=== PATIENT | female | born 1955 | race Caucasian/White ===

== ENCOUNTER 2018-01-01 10:28 | Inpatient (IN) | payer MEDICARE, OTHER ==
[~2018-01-01] VITALS: Ht 162.6 cm; Wt 90.7 kg
[~2018-01-01 10:28] MED LIST: ASPI81CH PO; ATEN50 PO; ATOR80 PO; Aldactone25 MG PO; BUME1 PO; CLOP75 PO; DIPH50 PO; FENO145 PO; FENO48 PO; FURO40 PO; GABA300; GABA300 PO; GABA600 PO; HYDR1TAB94; INSDET100 SC; INSU100I6 SC; INSUASPI SC; INSULANPEN; INSULANPEN SC; ISOMON20 PO; ISOMON30 PO; LISI5 PO; LORA1 PO; METO2.5; METO2.5 PO; METO25ER PO; METO50ER PO; Micro-K10 MEQ PO; PRAV20; QUIN10 PO; SPIR25 PO; TRAM50 PO; VENL75ER PO; VICODIN HP 10-1 EACH PO
[2018-01-01 11:15] LABS: BASOPHILS ABSOLUTE AUTO 0.06 K/mm3 (0.00-0.23); BASOPHILS PERCENT AUTO 1 % (0-2); EOSINOPHILS ABSOLUTE AUTO 0.26 K/mm3 (0.00-0.68); EOSINOPHILS PERCENT AUTO 2 % (0-6); Hematocrit 47.3 % (33.0-51.0); Hemoglobin 15.6 g/dL (11.5-16.0); IMMATURE GRAN ABSOLUTE AUTO 0.07 K/mm3 (0.00-0.10); IMMATURE GRAN PERCENT AUTO 1 % (0-1); LYMPHOCYTES ABSOLUTE AUTO 3.06 K/mm3 (0.84-5.20); LYMPHOCYTES PERCENT AUTO 25 % (21-46); MONOCYTES ABSOLUTE AUTO 0.78 K/mm3 (0.16-1.47); MONOCYTES PERCENT AUTO 6 % (4-13); Mean Corpuscular HGB 26.7 pg (26.0-34.0); Mean Corpuscular Volume 81 fL (80-100); NEUTROPHILS ABSOLUTE AUTO 8.13 K/mm3 (1.96-9.15); NEUTROPHILS PERCENT AUTO 66 % (41-73); Platelet Count 338 K/mm3 (150-400); RDW Standard Deviation 43.8 fL (35.1-46.3); Red Blood Cell Count 5.84 M/mm3 (3.80-5.20); White Blood Cell Count 12.36 K/mm3 (4.00-11.30)
[2018-01-01 11:27] LABS: Albumin, Blood 3.4 g/dL (3.4-5.0); Albumin/Globulin Ratio 0.7 (0.8-1.8); Bilirubin, Total 0.5 mg/dL (0.1-1.0); Bun/Creatinine Ratio 26.9 (12.0-20.0); Creatinine, Blood 2.94 mg/dL (0.40-1.00); Potassium, Blood 3.5 mmol/L (3.5-5.5); Total Protein, Blood 8.4 g/dL (6.4-8.2)
[2018-01-01 11:29] LABS: International Normalized Ratio 1.07; Prothrombin Time Results 11.1 Sec (9.7-11.5)
[2018-01-01 11:42] LABS: Source, Urine Catheter
[2018-01-01 11:51] LABS: Appearance, Urine Cloudy (Clear)
[2018-01-01 11:57] LABS: Color, Urine Yellow (P-Yellow); Red Blood Cells, Urine TNTC /hpf (0-2); White Blood Cells, Urine TNTC /hpf (0-5)
[2018-01-01 11:58] LABS: Bacteria Few /hpf; Squamous Epithelial Cells Rare /hpf (Few); Yeast/Fungi Urine Many /hpf
[2018-01-01] MEDS ORDERED: CALCA400CH (13:26)
[2018-01-01] MEDS ORDERED: INSULANPEN (13:26)
[2018-01-01 17:57] LABS: Amylase, Blood 223 U/L (25-115)
[2018-01-02 04:31] LABS: BASOPHILS ABSOLUTE AUTO 0.05 K/mm3 (0.00-0.23); BASOPHILS PERCENT AUTO 1 % (0-2); EOSINOPHILS ABSOLUTE AUTO 0.27 K/mm3 (0.00-0.68); EOSINOPHILS PERCENT AUTO 3 % (0-6); Hematocrit 40.6 % (33.0-51.0); Hemoglobin 13.2 g/dL (11.5-16.0); IMMATURE GRAN ABSOLUTE AUTO 0.04 K/mm3 (0.00-0.10); IMMATURE GRAN PERCENT AUTO 0 % (0-1); LYMPHOCYTES ABSOLUTE AUTO 1.84 K/mm3 (0.84-5.20); LYMPHOCYTES PERCENT AUTO 19 % (21-46); MONOCYTES ABSOLUTE AUTO 0.59 K/mm3 (0.16-1.47); MONOCYTES PERCENT AUTO 6 % (4-13); Mean Corpuscular HGB 26.6 pg (26.0-34.0); Mean Corpuscular HGB Conc 32.5 g/dL (31.5-36.5); Mean Corpuscular Volume 82 fL (80-100); Mean Platelet Volume 11.3 fL (9.1-12.4); NEUTROPHILS ABSOLUTE AUTO 7.03 K/mm3 (1.96-9.15); NEUTROPHILS PERCENT AUTO 72 % (41-73); Platelet Count 238 K/mm3 (150-400); RDW Coefficient Variation 15.5 % (11.7-14.2); RDW Standard Deviation 45.9 fL (35.1-46.3); Red Blood Cell Count 4.97 M/mm3 (3.80-5.20); White Blood Cell Count 9.82 K/mm3 (4.00-11.30)
[2018-01-02 04:53] LABS: Amylase, Blood 170 U/L (25-115); Troponin I 0.143 ng/mL (0.000-0.040)
[2018-01-02 04:57] LABS: Albumin, Blood 2.5 g/dL (3.4-5.0); Anion Gap 11 mmol/L (6-16); Blood Urea Nitrogen 81 mg/dL (8-24); Bun/Creatinine Ratio 24.9 (12.0-20.0); CO2, Blood 31 mmol/L (21-32); Chloride, Blood 90 mmol/L (98-108); Creatinine, Blood 3.25 mg/dL (0.40-1.00); Glomerular Filtration Rate 15 (60-); Glucose, Blood 349 mg/dL (70-99); Phosphorus, Blood 4.5 mg/dL (2.5-4.9); Potassium, Blood 4.4 mmol/L (3.5-5.5); Sodium, Blood 132 mmol/L (136-145)
[2018-01-02 05:01] LABS: Calcium, Blood 9.8 mg/dL (8.5-10.1)
[2018-01-03 03:57] LABS: Hemoglobin 13.1 g/dL (11.5-16.0)
[2018-01-03 04:15] LABS: Albumin, Blood 2.6 g/dL (3.4-5.0); Anion Gap 9 mmol/L (6-16); Blood Urea Nitrogen 62 mg/dL (8-24); Bun/Creatinine Ratio 26.8 (12.0-20.0); CO2, Blood 31 mmol/L (21-32); Calcium, Blood 9.7 mg/dL (8.5-10.1); Chloride, Blood 97 mmol/L (98-108); Creatinine, Blood 2.31 mg/dL (0.40-1.00); Glomerular Filtration Rate 23 (60-); Glucose, Blood 255 mg/dL (70-99); Phosphorus, Blood 3.3 mg/dL (2.5-4.9); Potassium, Blood 3.4 mmol/L (3.5-5.5); Sodium, Blood 137 mmol/L (136-145)
[2018-01-03] MEDS ORDERED: Acidophilus La100 GM PO (10:07)
[2018-01-03] MEDS ORDERED: CEFP200 PO (10:08)
[2018-01-05 14:10] LABS: ALBUMIN 2.8 g/dL (2.9-4.4); ALPHA-1-GLOBULIN 0.2 g/dL (0.0-0.4); ALPHA-2-GLOBULIN 1.2 g/dL (0.4-1.0); BETA GLOBULIN 0.9 g/dL (0.7-1.3); GAMMA GLOBULIN 0.6 g/dL (0.4-1.8); GLOBULIN, TOTAL 2.9 g/dL (2.2-3.9); M-SPIKE Not Observed g/dL (Not Observed); PROTEIN, TOTAL, SERUM 5.7 g/dL (6.0-8.5)
== END 2018-01-03 11:00 | disposition home or self-care (01) | DRG 871 ==
LOC: ER 10:28 → PCU 13:16
PROVIDERS: Internal Medicine; Internal Medicine Nephrology
DX: A41.9 Sepsis, unspecified organism (principal); I50.43 Acute on chronic combined systolic (congestive) and diastolic (congestive) heart failure; N17.0 Acute kidney failure with tubular necrosis; I13.0 Hypertensive heart and chronic kidney disease with heart failure and stage 1 through stage 4 chronic kidney disease, or unspecified chronic kidney disease; N39.0 Urinary tract infection, site not specified; R65.20 Severe sepsis without septic shock; Z79.4 Long term (current) use of insulin; Z87.891 Personal history of nicotine dependence; N18.3 Chronic kidney disease, stage 3 (moderate); E11.40 Type 2 diabetes mellitus with diabetic neuropathy, unspecified; I25.10 Atherosclerotic heart disease of native coronary artery without angina pectoris; I25.5 Ischemic cardiomyopathy; D63.1 Anemia in chronic kidney disease; Z95.1 Presence of aortocoronary bypass graft; Z79.82 Long term (current) use of aspirin; E21.3 Hyperparathyroidism, unspecified; E86.9 Volume depletion, unspecified; E87.6 Hypokalemia
CPT/HCPCS: 36415; 71045; 74150; 76770; 80053; 80069; 81001; 82150; 82947; 83605; 83690; 83735; 84484; 85014; 85018; 85025; 85610; 87086; 93005; 93010; 96365; 96375; 99285; C1751; C9113; J0696; J0744; J1644; J1815; J2405; J7030; P9612

== ENCOUNTER 2018-01-29 11:26 | Inpatient (IN) | payer MEDICARE, OTHER ==
[~2018-01-29] VITALS: Ht 165.1 cm; Wt 115.0 kg
[~2018-01-29 11:26] MED LIST changes: +Acidophilus La100 GM PO; +CALCA400CH; +CEFP200 PO
[2018-01-29 12:30] LABS: Calcium, Ionized (POC) 1.05 mmol/L (1.10-1.46); Chloride (POC) 100 mmol/L (98-108); Creatinine (POC) 6.3 mg/dL (0.6-1.0); Glucose (ISTAT POC) 86 mg/dL (70-99); Hemoglobin (POC) 10.5 g/dL (12.0-16.0); Potassium (POC) 7.1 mmol/L (3.5-5.5); Sodium (POC) 130 mmol/L (135-148); Total CO2 (POC) 20 mmol/L (21-32)
[2018-01-29 14:20] LABS: Source, Urine Clean Catch
[2018-01-29 14:25] LABS: Calcium, Ionized (POC) 1.08 mmol/L (1.10-1.46); Chloride (POC) 100 mmol/L (98-108); Creatinine (POC) 6.4 mg/dL (0.6-1.0); Glucose (ISTAT POC) 94 mg/dL (70-99); Hemoglobin (POC) 10.5 g/dL (12.0-16.0); Potassium (POC) 5.8 mmol/L (3.5-5.5); Sodium (POC) 132 mmol/L (135-148); Total CO2 (POC) 21 mmol/L (21-32)
[2018-01-29 14:39] LABS: Appearance, Urine Turbid (Clear); Bilirubin, Urine Neg (Neg); Blood, Urine 5+ (Neg); Color, Urine Yellow (P-Yellow); Glucose Qualitative, Urine Neg (Neg); Ketones, Urine 1+ (Neg); Leukocyte Esterase, Urine 3+ (Neg); Nitrite, Urine Neg (Neg); Protein, Urine 3+ (Neg); Specific Gravity, Urine 1.025 (1.003-1.022); Urobilinogen, Urine NORM (Normal)
[2018-01-29 14:42] LABS: BASOPHILS ABSOLUTE AUTO 0.04 K/mm3 (0.00-0.23); BASOPHILS PERCENT AUTO 1 % (0-2); EOSINOPHILS ABSOLUTE AUTO 0.26 K/mm3 (0.00-0.68); EOSINOPHILS PERCENT AUTO 4 % (0-6); Hemoglobin 10.4 g/dL (11.5-16.0); IMMATURE GRAN ABSOLUTE AUTO 0.04 K/mm3 (0.00-0.10); IMMATURE GRAN PERCENT AUTO 1 % (0-1); LYMPHOCYTES ABSOLUTE AUTO 1.52 K/mm3 (0.84-5.20); LYMPHOCYTES PERCENT AUTO 25 % (21-46); MONOCYTES ABSOLUTE AUTO 0.37 K/mm3 (0.16-1.47); MONOCYTES PERCENT AUTO 6 % (4-13); Mean Corpuscular HGB 27.3 pg (26.0-34.0); Mean Corpuscular HGB Conc 31.5 g/dL (31.5-36.5); Mean Corpuscular Volume 87 fL (80-100); Mean Platelet Volume 10.2 fL (9.1-12.4); NEUTROPHILS ABSOLUTE AUTO 3.92 K/mm3 (1.96-9.15); NEUTROPHILS PERCENT AUTO 64 % (41-73); NRBC ABSOLUTE 0.07 K/mm3 (0.00-0.02); NRBC Auto 1.1 /100 WBC (0.0-0.2); Platelet Count 314 K/mm3 (150-400); RDW Coefficient Variation 17.3 % (11.7-14.2); Red Blood Cell Count 3.81 M/mm3 (3.80-5.20); White Blood Cell Count 6.15 K/mm3 (4.00-11.30)
[2018-01-29 14:46] LABS: Red Blood Cells, Urine TNTC /hpf (0-2); White Blood Cells, Urine TNTC /hpf (0-5)
[2018-01-29 14:47] LABS: Alanine Aminotransfer (ALT/SGP 37 U/L (12-78); Albumin, Blood 2.6 g/dL (3.4-5.0); Albumin/Globulin Ratio 0.6 (0.8-1.8); Alk Phos 173 U/L (50-136); Anion Gap 13 mmol/L (6-16); Aspartate Aminotrans (AST/SGOT 62 U/L (12-37); Bilirubin, Total 0.5 mg/dL (0.1-1.0); Blood Urea Nitrogen 100 mg/dL (8-24); Bun/Creatinine Ratio 16.8 (12.0-20.0); CO2, Blood 22 mmol/L (21-32); Calcium, Blood 9.2 mg/dL (8.5-10.1); Chloride, Blood 100 mmol/L (98-108); Creatinine, Blood 5.97 mg/dL (0.40-1.00); Globulin, Blood 4.4 g/dL (2.2-4.0); Glomerular Filtration Rate 8 (60-); Glucose, Blood 92 mg/dL (70-99); Magnesium, Blood 2.9 mg/dL (1.6-2.4); Potassium, Blood 5.7 mmol/L (3.5-5.5); Sodium, Blood 135 mmol/L (136-145); Troponin I <0.015 ng/mL (0.000-0.040)
[2018-01-29 14:48] LABS: Bacteria Many /hpf; Squamous Epithelial Cells Few /hpf (Few)
[2018-01-29 19:43] LABS: Source, Urine Catheter
[2018-01-29 19:48] LABS: Bilirubin, Urine Neg (Neg); Blood, Urine 5+ (Neg); Glucose Qualitative, Urine Neg (Neg); Ketones, Urine Neg (Neg); Leukocyte Esterase, Urine 3+ (Neg); Nitrite, Urine Neg (Neg); Protein, Urine 3+ (Neg); Urobilinogen, Urine NORM (Normal)
[2018-01-29 19:55] LABS: Appearance, Urine Hazy (Clear); Color, Urine Yellow (P-Yellow); White Blood Cells, Urine TNTC /hpf (0-5)
[2018-01-29 19:56] LABS: Bacteria Many /hpf
[2018-01-29 19:57] LABS: Squamous Epithelial Cells Not Seen /hpf (Few)
[2018-01-29 20:02] LABS: U Amphetamine Screen Not Detected; U Barbituate Screen Not Detected; U Benzodiazapine Screen Not Detected; U Buprenorphine Screen Not Detected; U Cannabinoids Screen Not Detected; U Cocaine Screen Not Detected; U Methadone Screen Not Detected; U Methamphetamine Screen Not Detected; U Opiates Screen DETECTED; U Oxycodone Screen Not Detected; U Phencyclidine Screen Not Detected; U Propoxyphene Screen Not Detected
[2018-01-29] MEDS ORDERED: FENT50TP (22:38)
[2018-01-30 08:11] LABS: BASOPHILS ABSOLUTE AUTO 0.04 K/mm3 (0.00-0.23); BASOPHILS PERCENT AUTO 1 % (0-2); EOSINOPHILS ABSOLUTE AUTO 0.21 K/mm3 (0.00-0.68); EOSINOPHILS PERCENT AUTO 4 % (0-6); Hematocrit 33.4 % (33.0-51.0); Hemoglobin 10.7 g/dL (11.5-16.0); IMMATURE GRAN ABSOLUTE AUTO 0.03 K/mm3 (0.00-0.10); IMMATURE GRAN PERCENT AUTO 1 % (0-1); LYMPHOCYTES ABSOLUTE AUTO 1.21 K/mm3 (0.84-5.20); LYMPHOCYTES PERCENT AUTO 23 % (21-46); MONOCYTES ABSOLUTE AUTO 0.32 K/mm3 (0.16-1.47); MONOCYTES PERCENT AUTO 6 % (4-13); Mean Corpuscular HGB 27.7 pg (26.0-34.0); Mean Corpuscular Volume 87 fL (80-100); Mean Platelet Volume 10.3 fL (9.1-12.4); NEUTROPHILS ABSOLUTE AUTO 3.51 K/mm3 (1.96-9.15); NEUTROPHILS PERCENT AUTO 66 % (41-73); NRBC ABSOLUTE 0.07 K/mm3 (0.00-0.02); NRBC Auto 1.3 /100 WBC (0.0-0.2); Platelet Count 285 K/mm3 (150-400); RDW Coefficient Variation 17.4 % (11.7-14.2); RDW Standard Deviation 52.8 fL (35.1-46.3); Red Blood Cell Count 3.86 M/mm3 (3.80-5.20); White Blood Cell Count 5.32 K/mm3 (4.00-11.30)
[2018-01-30 08:24] LABS: Magnesium, Blood 2.9 mg/dL (1.6-2.4)
[2018-01-30 09:08] LABS: Bun/Creatinine Ratio 17.5 (12.0-20.0); Calcium, Blood 9.1 mg/dL (8.5-10.1); Creatinine, Blood 5.94 mg/dL (0.40-1.00)
[2018-01-30 09:10] LABS: Potassium, Blood 6.2 mmol/L (3.5-5.5)
[2018-01-31 04:35] LABS: Hemoglobin 9.5 g/dL (11.5-16.0)
[2018-01-31 04:59] LABS: Magnesium, Blood 2.6 mg/dL (1.6-2.4)
[2018-01-31 05:00] LABS: Albumin, Blood 2.5 g/dL (3.4-5.0); Anion Gap 13 mmol/L (6-16); Blood Urea Nitrogen 99 mg/dL (8-24); Bun/Creatinine Ratio 20.7 (12.0-20.0); CO2, Blood 23 mmol/L (21-32); Calcium, Blood 8.5 mg/dL (8.5-10.1); Chloride, Blood 101 mmol/L (98-108); Creatinine, Blood 4.78 mg/dL (0.40-1.00); Glomerular Filtration Rate 10 (60-); Glucose, Blood 155 mg/dL (70-99); Potassium, Blood 4.5 mmol/L (3.5-5.5); Sodium, Blood 137 mmol/L (136-145)
[2018-02-01 05:27] LABS: BASOPHILS ABSOLUTE AUTO 0.02 K/mm3 (0.00-0.23); BASOPHILS PERCENT AUTO 0 % (0-2); EOSINOPHILS ABSOLUTE AUTO 0.16 K/mm3 (0.00-0.68); EOSINOPHILS PERCENT AUTO 3 % (0-6); Hematocrit 31.9 % (33.0-51.0); Hemoglobin 10.1 g/dL (11.5-16.0); IMMATURE GRAN ABSOLUTE AUTO 0.03 K/mm3 (0.00-0.10); IMMATURE GRAN PERCENT AUTO 1 % (0-1); LYMPHOCYTES ABSOLUTE AUTO 0.76 K/mm3 (0.84-5.20); LYMPHOCYTES PERCENT AUTO 13 % (21-46); MONOCYTES ABSOLUTE AUTO 0.39 K/mm3 (0.16-1.47); MONOCYTES PERCENT AUTO 7 % (4-13); Mean Corpuscular HGB 26.7 pg (26.0-34.0); Mean Corpuscular HGB Conc 31.7 g/dL (31.5-36.5); Mean Platelet Volume 10.2 fL (9.1-12.4); NEUTROPHILS ABSOLUTE AUTO 4.67 K/mm3 (1.96-9.15); NEUTROPHILS PERCENT AUTO 77 % (41-73); NRBC ABSOLUTE 0.04 K/mm3 (0.00-0.02); NRBC Auto 0.7 /100 WBC (0.0-0.2); Platelet Count 261 K/mm3 (150-400); RDW Coefficient Variation 17.5 % (11.7-14.2); RDW Standard Deviation 50.4 fL (35.1-46.3); Red Blood Cell Count 3.78 M/mm3 (3.80-5.20); White Blood Cell Count 6.03 K/mm3 (4.00-11.30)
[2018-02-01 05:28] LABS: Mean Corpuscular Volume 84 fL (80-100)
[2018-02-01 05:51] LABS: Albumin, Blood 2.5 g/dL (3.4-5.0); Anion Gap 13 mmol/L (6-16); Blood Urea Nitrogen 93 mg/dL (8-24); Bun/Creatinine Ratio 27.8 (12.0-20.0); CO2, Blood 26 mmol/L (21-32); Calcium, Blood 8.8 mg/dL (8.5-10.1); Chloride, Blood 100 mmol/L (98-108); Creatinine, Blood 3.34 mg/dL (0.40-1.00); Glomerular Filtration Rate 15 (60-); Glucose, Blood 316 mg/dL (70-99); Magnesium, Blood 2.3 mg/dL (1.6-2.4); Phosphorus, Blood 6.3 mg/dL (2.5-4.9); Sodium, Blood 139 mmol/L (136-145)
[2018-02-01] MEDS ORDERED: Tylenol325 MG PO (08:55)
[2018-02-01] MEDS ORDERED: Aluminum H320 MG/5 M PO (08:58)
[2018-02-01] MEDS ORDERED: CEPH500 PO (08:59)
[2018-02-01] MEDS ORDERED: METO2.5 PO (09:01)
[2018-02-01] MEDS ORDERED: FURO80 PO (09:03)
[2018-02-01] MEDS ORDERED: PANT40 PO (09:04)
[2018-02-01] MEDS ORDERED: ONDA4ODT PO (09:09)
== END 2018-02-01 11:51 | disposition home or self-care (01) | DRG 640 ==
LOC: ER 11:26 → PCU 15:55 → SURS 15:55 → PCU 17:50 → SURS 01-31 14:57
PROVIDERS: Emergency Medicine; Family Medicine; Internal Medicine Nephrology; Physician Assistant
DX: E87.5 Hyperkalemia (principal); G93.40 Encephalopathy, unspecified; I13.0 Hypertensive heart and chronic kidney disease with heart failure and stage 1 through stage 4 chronic kidney disease, or unspecified chronic kidney disease; I50.22 Chronic systolic (congestive) heart failure; N39.0 Urinary tract infection, site not specified; N18.4 Chronic kidney disease, stage 4 (severe); N28.9 Disorder of kidney and ureter, unspecified; E87.2 Acidosis; E87.1 Hypo-osmolality and hyponatremia; B95.2 Enterococcus as the cause of diseases classified elsewhere; E10.22 Type 1 diabetes mellitus with diabetic chronic kidney disease; E10.42 Type 1 diabetes mellitus with diabetic polyneuropathy; K80.20 Calculus of gallbladder without cholecystitis without obstruction; E66.01 Morbid (severe) obesity due to excess calories; R60.0 Localized edema; E87.70 Fluid overload, unspecified; R00.1 Bradycardia, unspecified; R07.9 Chest pain, unspecified; D63.1 Anemia in chronic kidney disease; I25.10 Atherosclerotic heart disease of native coronary artery without angina pectoris; E78.5 Hyperlipidemia, unspecified; I25.5 Ischemic cardiomyopathy; M25.512 Pain in left shoulder; D50.9 Iron deficiency anemia, unspecified; Z68.38 Body mass index [BMI] 38.0-38.9, adult; R53.1 Weakness; Z95.5 Presence of coronary angioplasty implant and graft; Z79.4 Long term (current) use of insulin; Z95.810 Presence of automatic (implantable) cardiac defibrillator; Z95.1 Presence of aortocoronary bypass graft; Z87.891 Personal history of nicotine dependence; Z79.82 Long term (current) use of aspirin; Z79.899 Other long term (current) drug therapy; Z88.8 Allergy status to other drugs, medicaments and biological substances
CPT/HCPCS: 36415; 71045; 76770; 80047; 80048; 80053; 80069; 81001; 82947; 83735; 83880; 84132; 84484; 85014; 85018; 85025; 87077; 87086; 87186; 93005; 93010; 94762; 96374; 96375; 97163; 97165; 97535; 99285-25; C9113; G8978; G8979; G8987; G8988; G8989; J0610; J0696; J0881; J1650; J1815; J1940

== ENCOUNTER 2019-03-31 16:04 | Inpatient (IN) | payer MEDICARE, OTHER ==
[~2019-03-31] VITALS: Ht 167.6 cm; Wt 105.8 kg
[~2019-03-31 16:04] MED LIST changes: +Aluminum H320 MG/5 M PO; +CEPH500 PO; +FENT50TP; +FURO80 PO; +ONDA4ODT PO; +PANT40 PO; +Tylenol325 MG PO
[2019-03-31 16:20] LABS: Calcium, Ionized (POC) 0.98 mmol/L (1.10-1.46); Chloride (POC) 93 mmol/L (98-108); Creatinine (POC) 6.3 mg/dL (0.6-1.0); Glucose (ISTAT POC) 250 mg/dL (70-99); Hemoglobin (POC) 10.5 g/dL (12.0-16.0); Potassium (POC) 6.5 mmol/L (3.5-5.5); Sodium (POC) 125 mmol/L (135-148); Total CO2 (POC) 19 mmol/L (21-32)
[2019-03-31 16:31] LABS: BASOPHILS ABSOLUTE AUTO 0.03 K/mm3 (0.00-0.23); BASOPHILS PERCENT AUTO 0 % (0-2); EOSINOPHILS ABSOLUTE AUTO 0.03 K/mm3 (0.00-0.68); EOSINOPHILS PERCENT AUTO 0 % (0-6); Hematocrit 32.3 % (33.0-51.0); Hemoglobin 10.2 g/dL (11.5-16.0); IMMATURE GRAN PERCENT AUTO 1 % (0-1); LYMPHOCYTES ABSOLUTE AUTO 0.97 K/mm3 (0.84-5.20); LYMPHOCYTES PERCENT AUTO 9 % (21-46); MONOCYTES ABSOLUTE AUTO 0.85 K/mm3 (0.16-1.47); MONOCYTES PERCENT AUTO 7 % (4-13); Mean Corpuscular HGB 29.7 pg (26.0-34.0); Mean Corpuscular HGB Conc 31.6 g/dL (31.5-36.5); Mean Corpuscular Volume 94 fL (80-100); Mean Platelet Volume 10.9 fL (9.1-12.4); NEUTROPHILS ABSOLUTE AUTO 9.46 K/mm3 (1.96-9.15); NEUTROPHILS PERCENT AUTO 83 % (41-73); Platelet Count 306 K/mm3 (150-400); RDW Coefficient Variation 16.1 % (11.7-14.2); RDW Standard Deviation 55.1 fL (35.1-46.3); Red Blood Cell Count 3.44 M/mm3 (3.80-5.20); White Blood Cell Count 11.44 K/mm3 (4.00-11.30)
[2019-03-31 16:41] LABS: Base Excess Venous -9.4 mmol/L; Bicarbonate Venous 16.8 mmol/L (24.0-30.0); PCO2 Venous 48.1 mmHg (38-42); PO2 Venous 52.8 mmHg (38-42)
[2019-03-31 16:44] LABS: International Normalized Ratio 1.29; Prothrombin Time Results 13.4 Sec (9.7-11.5)
[2019-03-31 16:56] LABS: Source, Urine Catheter
[2019-03-31 17:06] LABS: Bilirubin, Urine Neg (Neg); Blood, Urine 3+ (Neg); Glucose Qualitative, Urine 1+ (Neg); Ketones, Urine Neg (Neg); Leukocyte Esterase, Urine 1+ (Neg); Nitrite, Urine Neg (Neg); Protein, Urine 3+ (Neg); Urobilinogen, Urine NORM (Normal)
[2019-03-31 17:16] LABS: Appearance, Urine Hazy (Clear); Color, Urine Yellow (P-Yellow)
[2019-03-31 17:19] LABS: Amorphous Mod (0-Heavy); Bacteria Mod /hpf; Squamous Epithelial Cells Few /hpf (Few); White Blood Cells, Urine 0-2 /hpf (0-5)
[2019-03-31 17:28] LABS: U Amphetamine Screen Not Detected; U Barbituate Screen Not Detected; U Benzodiazapine Screen Not Detected; U Buprenorphine Screen Not Detected; U Cannabinoids Screen Not Detected; U Cocaine Screen Not Detected; U Methadone Screen Not Detected; U Methamphetamine Screen Not Detected; U Opiates Screen DETECTED; U Oxycodone Screen Not Detected; U Phencyclidine Screen Not Detected; U Propoxyphene Screen Not Detected
[2019-03-31 18:10] LABS: Albumin, Blood 2.3 g/dL (3.4-5.0); Albumin/Globulin Ratio 0.5 (0.8-1.8); Bun/Creatinine Ratio 26.8 (12.0-20.0); Calcium, Blood 8.9 mg/dL (8.5-10.1); Creatine Kinase MB 15.2 ng/mL (0.0-3.6); Creatinine, Blood 5.11 mg/dL (0.40-1.00); Globulin, Blood 4.5 g/dL (2.2-4.0); Magnesium, Blood 2.9 mg/dL (1.6-2.4); Potassium, Blood 5.3 mmol/L (3.5-5.5); Total Protein, Blood 6.8 g/dL (6.4-8.2)
[2019-03-31 18:23] LABS: Creatine Kinase MB Index 1.2 (0.0-4.0)
[2019-03-31 21:07] LABS: Bun/Creatinine Ratio 29.1 (12.0-20.0); Calcium, Blood 8.9 mg/dL (8.5-10.1); Creatinine, Blood 4.95 mg/dL (0.40-1.00); Potassium, Blood 5.3 mmol/L (3.5-5.5)
--- NOTE | 2019-03-31 23:40 | NUR ---
Admission/Turner of Care: Patient arrived to unit at 2210hr via stretcher accompanied by ED nurse. Patient alert and oriented to self, place. Confused to exact date and reason for admission. Denies pain except for itching and mild pain to lt foot, and states this has been a ongoing issue for her. Lt foot appears slightly swollen (1+ edema) and pink, capillary refill and temp wnl, pulses positive. VSS at this time, heart rhythm shows sinus bradycardia in the high 50's. Guzman cath patent and intact, draining dark yellow, clear urine. Peripheral IV's x2 patent and intact, NS started at 75ml/hr after arrival. Call light in reach, makes needs known. Appears calm and comfortable at this time. Will continue to monitor for pain, safety, comfort.
[2019-04-01 03:37] LABS: Hematocrit 32.3 % (33.0-51.0); Hemoglobin 10.4 g/dL (11.5-16.0); Mean Corpuscular HGB 29.3 pg (26.0-34.0); Mean Corpuscular HGB Conc 32.2 g/dL (31.5-36.5); Mean Platelet Volume 10.9 fL (9.1-12.4); Platelet Count 234 K/mm3 (150-400); RDW Coefficient Variation 15.9 % (11.7-14.2); RDW Standard Deviation 52.9 fL (35.1-46.3); Red Blood Cell Count 3.55 M/mm3 (3.80-5.20); White Blood Cell Count 9.62 K/mm3 (4.00-11.30)
[2019-04-01 03:39] LABS: Mean Corpuscular Volume 91 fL (80-100)
[2019-04-01 04:00] LABS: Albumin, Blood 2.5 g/dL (3.4-5.0); Albumin/Globulin Ratio 0.5 (0.8-1.8); Bilirubin, Total 0.8 mg/dL (0.1-1.0); Bun/Creatinine Ratio 29.5 (12.0-20.0); Calcium, Blood 8.9 mg/dL (8.5-10.1); Creatinine, Blood 4.95 mg/dL (0.40-1.00); Globulin, Blood 4.6 g/dL (2.2-4.0); Magnesium, Blood 2.9 mg/dL (1.6-2.4); Potassium, Blood 5.2 mmol/L (3.5-5.5); Total Protein, Blood 7.1 g/dL (6.4-8.2)
[2019-04-01 04:18] LABS: Phosphorus, Blood 9.3 mg/dL (2.5-4.9)
--- NOTE | 2019-04-01 06:49 | NUR ---
Shift Summary: Patient slept on/off throughout shift. Remains oriented to self and place, confused to time/date, reason for admission, also slow to respond to questions. Continues to deny pain, except for mild discomfort and itching to lt foot, not requiring pain intervention. BP labile, systolic 80's-110, MAP 55-70's, Dr. Correa made aware of BP, no new orders received r/t BP. Morning labs showed increase in AST, ALT, phosphorus- 9.8, and no change to BUN, Creatinine. Dr. Correa ordered Amphogel with meals, and repeat amonia, and Ck lab orders. Repeat lab results then called to Dr. Correa, no new orders received at that time. Guzman cath remains patent and intact, draining dark yellow, clear urine. Peripheral IV's x2 remain patent and intact. Report given to Ivis BOLAND.
--- NOTE | 2019-04-01 07:21 | NUR ---
ASSUMED CARE: PT RESTING QUIETLY, ROUSES EASILY. AWARE OF NAME AND DATE OF . SPEECH CLEAR BUT OCCASIONALY COMES OUT GARBLED UNTIL PT REATTEMPTS TO SPEAK AND CORRECTS HERSELF. SINUS AUBREY IN 50S AT THIS TIME. HYPOTENSIVE BUT APPROPRIATE. NO FURTHER NEEDS OR CONCERNS AT THIS TIME.
--- NOTE | 2019-04-01 11:16 | NUR ---
DR DANIEL AWARE THAT PT IS ALERT AND ORIENTED X3 WITH SOME CONFUSION NOTED WHEN ASKING HER TO PERFORM TASKS OR ANSWER QUESTIONS. MADE DR DANIEL AWARE OF ULTRASOUND RESULTS. DECLINED GI AT THIS TIME AND STATES SHE WILL LOOK INTO IT FURTHER
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
--- NOTE | 2019-04-01 12:36 | NUR ---
PT TRANSFERRED TO PCU 10. REPORT GIVEN TO KYA KATZ. PT'S AT BEDSIDE AND AWARE OF TRANSFER. TRANSFERRED VIA WHEEL CHAIR, TWO ASSIST BACK TO BED UPON ARRIVAL TO ROOM. DENIED FURTHER NEEDS OR CONCERNS.
--- NOTE | 2019-04-01 17:34 | NUR ---
PT LEG IS VERY TENDER, PINK AND SWOLLEN, TIGHT, SPOKE WITH DR. DANIEL, WILL OBTAIN A DOPPLER TO R/O DVT, EXPLAINED THIS TO PT AND SPOUCE. DR. LUIS IN TO SEE PT, NO FURTHER NEEDS AT THIS TIME, CALL LIGHT IN REACH.
[2019-04-02 04:02] LABS: Hematocrit 32.4 % (33.0-51.0); Hemoglobin 10.4 g/dL (11.5-16.0)
[2019-04-02 04:27] LABS: Albumin, Blood 2.7 g/dL (3.4-5.0); Anion Gap 16 mmol/L (6-16); CO2, Blood 23 mmol/L (21-32); Calcium, Blood 8.8 mg/dL (8.5-10.1); Chloride, Blood 97 mmol/L (98-108); Creatinine, Blood 4.93 mg/dL (0.40-1.00); Glomerular Filtration Rate 9 (60-); Glucose, Blood 129 mg/dL (70-99); Magnesium, Blood 2.7 mg/dL (1.6-2.4); Potassium, Blood 4.5 mmol/L (3.5-5.5); Sodium, Blood 136 mmol/L (136-145)
[2019-04-02 04:33] LABS: Blood Urea Nitrogen 148 mg/dL (8-24)
[2019-04-02 04:41] LABS: Phosphorus, Blood 8.9 mg/dL (2.5-4.9)
--- NOTE | 2019-04-02 06:16 | NUR ---
PATIENT ALERT AND ORIENTED THROUGHOUT SHIFT, BUT SLOW TO RESPOND. LEFT LEG SWOLLEN AND PAINFUL TO TOUCH FROM RECENT FALL AT HOME, FOR WHICH X-RAY SHOWS NO FX-AND VENOUS DOPPLER STUDY COMPLETE. PATIENT ADMITS SHE OBSSESSIVELY PICKS AT HER SKIN; OBSERVABLE ARE NUMEROUS SCABS AND SCARS SCATTERED ON ALL SURFACES OF BODY AND HEAD. PATIENT IS 2-PER FULL ASSIST, BUT REMAINED IN BED ALL SHIFT. INTAKE AND OUTPUT FOR THIS PATIENT WAS LOW, PATIENT ENCOURAGED TO INCREASE WATER INTAKE. BED LOCKED AND LOW, CALL LIGHT IN REACH.
--- NOTE | 2019-04-02 12:49 | NUR ---
REPORT OFF REPORT GIVEN TO ALEJANDRO DOTY RN. LALITHA TO ASSUME CARE OF PT AT THIS TIME.
--- NOTE | 2019-04-02 19:09 | NUR ---
PT. ARRIVED TO FLOOR AT 1715 FROM [facility]- VIA . PT. A&O. PT. REFUSED DINNER REPORTING NAUSEA FOR WHICH ZOFRAN WAS GIVEN. PT. BACK IN BED AT THIS TIME.
--- NOTE | 2019-04-03 02:57 | NUR ---
SHIFT SUMMARY PT IS ALERT, CONFUSED TO TIME AND DATE. PT CONTINUES TO HAVE INTERMITTENT NAUSEA, BUT NO VOMITTING. ZOFRAN GIVEN ORDERED, AND A COOL CLOTH APPLIED TO PT'S FOREHEAD. PT'S BULLOCK IS DRAINING WELL. NO COMPLAINTS OF PAIN AT THIS TIME. AROUND MIDNIGHT, PT DID WORRY HER BLOOD SUGAR DROPPED. IT WAS CHECKED AND WAS 120S. NO OTHER COMPLAINTS AT THIS TIME. WILL CONTINUE TO MONITOR.
[2019-04-03 04:39] LABS: Hematocrit 33.9 % (33.0-51.0); Hemoglobin 10.5 g/dL (11.5-16.0)
[2019-04-03 04:57] LABS: Magnesium, Blood 2.5 mg/dL (1.6-2.4)
[2019-04-03 05:15] LABS: Albumin, Blood 2.5 g/dL (3.4-5.0); Anion Gap 16 mmol/L (6-16); Blood Urea Nitrogen 145 mg/dL (8-24); Bun/Creatinine Ratio 33.6 (12.0-20.0); CO2, Blood 23 mmol/L (21-32); Calcium, Blood 8.3 mg/dL (8.5-10.1); Chloride, Blood 98 mmol/L (98-108); Creatinine, Blood 4.31 mg/dL (0.40-1.00); Glomerular Filtration Rate 11 (60-); Glucose, Blood 123 mg/dL (70-99); Phosphorus, Blood 7.4 mg/dL (2.5-4.9); Potassium, Blood 3.5 mmol/L (3.5-5.5); Sodium, Blood 137 mmol/L (136-145)
--- NOTE | 2019-04-03 19:41 | NUR ---
SHIFT SUMMARY: NO ACUTE CHANGES TO REPORT THIS SHIFT. PT A&O; OCC CONFUSION; CALM AND COOPERATIVE WITH CARE. NO C/O PAIN THIS SHIFT. TYPE 1 DIABETIC; NO COVERAGE REQUIRED THIS SHIFT. GENERALIZED WEAKNESS; UP c 1-ASSIST TO BSC/CHAIR. BULLOCK IN PLACE; PATENT AND DRAINING. IV ABX CONTINUING. REPORT GIVEN TO ONCOMING RN.
--- NOTE | 2019-04-04 00:03 | NUR ---
DR. LUIS AT BEDSIDE TO SEE PT. INFORMED HER THAT SHE WILL CONTINUE TO BE HERE PROABALY UNTIL THURSDAY, PT VERBALIZES UNDERSTANDING. SAFETY MEASURES IN PLACE. WILL CONTINUE TO MONITOR.
[2019-04-04 05:00] LABS: Hematocrit 31.8 % (33.0-51.0); Hemoglobin 10.3 g/dL (11.5-16.0)
[2019-04-04 05:43] LABS: Albumin, Blood 2.6 g/dL (3.4-5.0); Anion Gap 13 mmol/L (6-16); Blood Urea Nitrogen 143 mg/dL (8-24); Bun/Creatinine Ratio 40.7 (12.0-20.0); CO2, Blood 28 mmol/L (21-32); Calcium, Blood 8.3 mg/dL (8.5-10.1); Chloride, Blood 98 mmol/L (98-108); Creatinine, Blood 3.51 mg/dL (0.40-1.00); Glomerular Filtration Rate 14 (60-); Glucose, Blood 125 mg/dL (70-99); Magnesium, Blood 2.4 mg/dL (1.6-2.4); Phosphorus, Blood 5.1 mg/dL (2.5-4.9); Sodium, Blood 139 mmol/L (136-145)
--- NOTE | 2019-04-04 06:21 | NUR ---
SHIFT SUMMARY LYING IN SEMI FOWLERS WITH EYES OPEN WHILE WATCHING TV. HAS HAD A GOOD NIGHT. DENIES PAIN, DISCOMFORT, OR FURTHER NEEDS AT THIS TIME. AMBULATED TO BATHROOM FOR BM ATTEMPTS X3 THIS SHIFT WITHOUT RESULTS. SAFETY MEASURES IN PLACE. WILL GIVE HAND OFF TO ONCOMING SHIFT USING SBAR.
--- NOTE | 2019-04-04 16:04 | NUR ---
Spiritual Care intial note: Simon admits she has been non-compliant with some things. She is willing to do whatever she needs to do to get strong and healthy. She is being followed by Dr. Correa. "He's done a great job of saving my kidneys." If it comes to it, she is willing to start dialysis. Simon is Christian, but has not been active. She welcomed prayer and spiritual encouragement. I will remain available.
--- NOTE | 2019-04-04 18:31 | NUR ---
PATIENT IS A/OX4, UP WITH FWW AND 1 ASSIST TO RESTROOM. KIDNEY FUNCTION IMPROVING. K+ 3.0 THIS AM AND HAS BEEN REPLACED. VSS, ON RA. FALL PRECAUTIONS IN PLACE PER UNIT PROTOCOL. TOLERATING RENAL DIET. MULTIPLE SCABS COVERING BODY. ACHS BLOOD SUGARS, NO SS COVERAGE NEEDED THIS SHIFT.
[2019-04-05 04:55] LABS: Hematocrit 29.6 % (33.0-51.0); Hemoglobin 9.4 g/dL (11.5-16.0)
[2019-04-05 05:15] LABS: Albumin, Blood 2.5 g/dL (3.4-5.0); Anion Gap 11 mmol/L (6-16); Blood Urea Nitrogen 129 mg/dL (8-24); Bun/Creatinine Ratio 45.7 (12.0-20.0); CO2, Blood 30 mmol/L (21-32); Calcium, Blood 8.8 mg/dL (8.5-10.1); Chloride, Blood 103 mmol/L (98-108); Creatinine, Blood 2.82 mg/dL (0.40-1.00); Glomerular Filtration Rate 18 (60-); Glucose, Blood 83 mg/dL (70-99); Magnesium, Blood 2.4 mg/dL (1.6-2.4); Phosphorus, Blood 3.8 mg/dL (2.5-4.9); Potassium, Blood 3.1 mmol/L (3.5-5.5); Sodium, Blood 144 mmol/L (136-145)
--- NOTE | 2019-04-05 05:28 | NUR ---
PRODUCT MANUFACTURING PROFESSIONAL SUMMARY PT AAOX4 AND PLEASANT. PT REPORTS FEELING MUCH BETTER THAN WHEN SHE CAME IN BUT STILL "PRETTY CRUMMY OVERALL". GIVEN ZOFRAN X1 AT START OF SHIFT FOR NAUSEA. PT HAS BEEN ABLE TO REST MOST OF SHIFT. KIDNEY FUNCTION LABS CONTINUE TO IMPROVE THIS MORNING. VSS, WILL CONTINUE TO MONITOR.
--- NOTE | 2019-04-05 18:26 | NUR ---
SHIFT SUMMARY PT SAT IN CHAIR FOR MOST OF THE AFTERNOON. NO COMPLAINTS OF PAIN THIS SHIFT. PT DOES NOT HAVE MUCH OF AN APPETITE. EATS SMALL AMOUNTS OF MEALS. PT HAS HAD NO ACUTE CHANGES THIS SHIFT. CALL LIGHT IN REACH. WILL CONTINUE TO MONITOR AND REPORT TO ONCOMING RN.
--- NOTE | 2019-04-05 22:54 | NUR ---
PT HAD A SECOND BM THIS SHIFT. THE STOOL WAS FORMED INTO JANG PELLETS, ALTHOUGH SOME OF THE PELLETS HAD RED BLOOD INSIDE THEM. THE SURROUNDING WATER HAD A PINKISH TINGE TO IT ALSO. HOSPITALIST WAS MADE AWARE. BP WAS RECHECKED AND IS IN THE CHART. PT ASYMPTOMATIC. WILL CONTINUE TO MONITOR PT.
--- NOTE | 2019-04-06 04:00 | NUR ---
SHIFT SUMMARY PT ALERT, ORIENTED AND STANDBY ASSIST. NO COMPLAINTS OF PAIN WERE MADE, AND NO CLINICAL CHANGE OTHER THEN THE BLOODY STOOL THAT WAS MENTIONED IN THE NOTE PREVIOUS. PT HAS NOT HAD ANOTHER BM SINCE. NO CONFUSION NOTED IN PT. VSS, WILL CONTINUE TO MONITOR.
[2019-04-06 04:25] LABS: Hematocrit 31.5 % (33.0-51.0); Hemoglobin 10.1 g/dL (11.5-16.0)
[2019-04-06 04:49] LABS: Albumin, Blood 2.7 g/dL (3.4-5.0); Anion Gap 9 mmol/L (6-16); Blood Urea Nitrogen 108 mg/dL (8-24); Bun/Creatinine Ratio 47.6 (12.0-20.0); CO2, Blood 30 mmol/L (21-32); Chloride, Blood 100 mmol/L (98-108); Creatinine, Blood 2.27 mg/dL (0.40-1.00); Glomerular Filtration Rate 23 (60-); Glucose, Blood 200 mg/dL (70-99); Magnesium, Blood 2.1 mg/dL (1.6-2.4); Phosphorus, Blood 2.6 mg/dL (2.5-4.9); Potassium, Blood 4.1 mmol/L (3.5-5.5); Sodium, Blood 139 mmol/L (136-145)
[2019-04-06] MEDS ORDERED: SPIR25 PO (11:39)
--- NOTE | 2019-04-06 11:46 | NUR ---
Pt. is doing well getting readyn to go home , prayed and blessed pt,
--- NOTE | 2019-04-06 12:10 | NUR ---
PT. DISCHARGED HOME WITH SPOUSE. PLACED PRESSURE DSG ON IV SITE AFTER REMOVING IT R/T CONT. BLEEDING. INSTRUCTED PT. TO REMOVE THE PRESSURE DRSG UPON ARRIVAL HOME. IF BLEEDING DID NOT STOP TO HOLD PRESSURE UUNTIL IT DID. VERBALIZED UNDERSTANDING OF MEDS AND DISCHARGE INSTRUCTIONS.
== END 2019-04-06 12:18 | disposition home or self-care (01) | DRG 682 ==
LOC: ER 16:04 → ICUW 20:07 → MEDS 20:07 → ICUW 22:16 → PCU 04-01 12:25 → MEDS 04-02 17:11 → ENPENDDIS 04-06 10:35 → MEDS 04-06 12:18
PROVIDERS: Emergency Medicine; Internal Medicine Nephrology; ADMIT Internal Medicine
DX: N17.9 Acute kidney failure, unspecified (principal); G93.41 Metabolic encephalopathy; I13.2 Hypertensive heart and chronic kidney disease with heart failure and with stage 5 chronic kidney disease, or end stage renal disease; I50.42 Chronic combined systolic (congestive) and diastolic (congestive) heart failure; M62.82 Rhabdomyolysis; Z68.42 Body mass index [BMI] 45.0-49.9, adult; I95.9 Hypotension, unspecified; N18.5 Chronic kidney disease, stage 5; N25.81 Secondary hyperparathyroidism of renal origin; E87.5 Hyperkalemia; M76.62 Achilles tendinitis, left leg; E87.6 Hypokalemia; Z95.810 Presence of automatic (implantable) cardiac defibrillator; E78.5 Hyperlipidemia, unspecified; E66.01 Morbid (severe) obesity due to excess calories; E10.22 Type 1 diabetes mellitus with diabetic chronic kidney disease; R00.1 Bradycardia, unspecified; D63.1 Anemia in chronic kidney disease; J44.9 Chronic obstructive pulmonary disease, unspecified; E83.39 Other disorders of phosphorus metabolism; I25.5 Ischemic cardiomyopathy; E88.09 Other disorders of plasma-protein metabolism, not elsewhere classified; I25.2 Old myocardial infarction; Z87.891 Personal history of nicotine dependence
CPT/HCPCS: 36415; 51702; 70450; 71045; 73610; 76705; 76770; 80047; 80048; 80053; 80069; 81001; 82140; 82550; 82553; 82803; 82947; 83605; 83735; 83880; 84100; 84145; 85014; 85018; 85025; 85027; 85610; 86850; 86900; 86901; 87040; 87086; 93005; 93010; 93971; 96361; 96374; 96375; 97162; 97166; 97530; 97535; 99285-25; J0610; J0881; J1644; J1815; J1956; J2310; J2405; J7030; J7050; J7799; P9041

== ENCOUNTER → 2019-07-19 | Outpatient (CLI) | payer MEDICARE, OTHER ==
[~2019-07-19] MED LIST changes: +Isosorbide Mono30 MG PO; +NOVOLOG FL100 UNIT/1 SC; +OXYC5 PO; +POTA10T PO
[2019-07-19 16:42] LABS: Bilirubin, Urine Neg (Neg); Blood, Urine 2+ (Neg); Glucose Qualitative, Urine Neg (Neg); Ketones, Urine Neg (Neg); Leukocyte Esterase, Urine 3+ (Neg); Nitrite, Urine Neg (Neg); Protein, Urine 3+ (Neg); Specific Gravity, Urine 1.015 (1.003-1.022); Urobilinogen, Urine NORM (Normal)
[2019-07-19 16:59] LABS: Appearance, Urine Clear (Clear); Color, Urine Yellow (P-Yellow)
[2019-07-19 17:00] LABS: White Blood Cells, Urine 25-50 /hpf (0-5)
[2019-07-19 17:01] LABS: Bacteria Few /hpf; Squamous Epithelial Cells Mod /hpf (Few)
== END | disposition home or self-care (01) ==
LOC: LAB 09:08 → LAB SHORT 09:08
PROVIDERS: Internal Medicine Nephrology
DX: N39.0 Urinary tract infection, site not specified (principal)
CPT/HCPCS: 81001

== ENCOUNTER 2019-10-20 13:59 | Day surgery (SDC) | payer MEDICARE, OTHER ==
[~2019-10-20] VITALS: Ht 165.1 cm; Wt 99.5 kg
[~2019-10-20 13:59] MED LIST changes: +Aspirin EC81 MG PO; -METO50ER PO
[2019-10-20] MEDS ORDERED: METO5 PO (14:42)
[2019-10-20] MEDS ORDERED: Pacerone400 MG PO (14:43)
--- NOTE | 2019-10-20 16:58 | NUR ---
DISCHARGE PT REMAINED A&OX3 AND DENIED ANY PAIN DURING RECOVERY. IV DC'D WITH CANULA IN TACT. PT ABLE TO DRESS SELF INDEPENDATLY. L UPPER CHEST SITE-CDI-NO HEMATOMA NOTED-SITE STABLE DURING RECOVERY. DISCHARGE PAPERWORK GONE OVER WITH PT. PT VERBALLY STATED THE UNDERSTANDING OF THE DISCHARGE PAPERWORK AND DENIED ANY QUESTIONS AT THIS TIME. PT WHEELED OUT BY SANDI Eckert RN.
== END 2019-10-20 23:42 | disposition home or self-care (01) ==
LOC: MHTC 13:59
DX: E11.22 Type 2 diabetes mellitus with diabetic chronic kidney disease (principal); N18.6 End stage renal disease; I25.10 Atherosclerotic heart disease of native coronary artery without angina pectoris; I25.5 Ischemic cardiomyopathy; E78.5 Hyperlipidemia, unspecified; Z95.1 Presence of aortocoronary bypass graft; Z95.810 Presence of automatic (implantable) cardiac defibrillator; Z87.891 Personal history of nicotine dependence; Z88.5 Allergy status to narcotic agent; Z88.8 Allergy status to other drugs, medicaments and biological substances; Z91.040 Latex allergy status; Z91.048 Other nonmedicinal substance allergy status; Z79.4 Long term (current) use of insulin; Z79.01 Long term (current) use of anticoagulants; Z79.82 Long term (current) use of aspirin; Z79.899 Other long term (current) drug therapy
CPT/HCPCS: 36558; 76937; C1750; C1769; J1644; J2250; J3010; J7040

== ENCOUNTER 2019-10-24 13:24 | Inpatient (IN) | payer MEDICARE, OTHER ==
[~2019-10-24] VITALS: Ht 165.1 cm; Wt 103.0 kg
[~2019-10-24 13:24] MED LIST changes: +METO5 PO; +Pacerone400 MG PO
[2019-10-24 14:16] LABS: BASOPHILS ABSOLUTE AUTO 0.06 K/mm3 (0.00-0.23); BASOPHILS PERCENT AUTO 1 % (0-2); EOSINOPHILS ABSOLUTE AUTO 0.34 K/mm3 (0.00-0.68); EOSINOPHILS PERCENT AUTO 4 % (0-6); Hematocrit 32.2 % (33.0-51.0); IMMATURE GRAN ABSOLUTE AUTO 0.06 K/mm3 (0.00-0.10); IMMATURE GRAN PERCENT AUTO 1 % (0-1); LYMPHOCYTES ABSOLUTE AUTO 1.07 K/mm3 (0.84-5.20); LYMPHOCYTES PERCENT AUTO 13 % (21-46); MONOCYTES ABSOLUTE AUTO 0.62 K/mm3 (0.16-1.47); MONOCYTES PERCENT AUTO 8 % (4-13); Mean Corpuscular HGB 27.1 pg (26.0-34.0); Mean Corpuscular HGB Conc 31.1 g/dL (31.5-36.5); Mean Corpuscular Volume 87 fL (80-100); NEUTROPHILS ABSOLUTE AUTO 6.14 K/mm3 (1.96-9.15); NEUTROPHILS PERCENT AUTO 74 % (41-73); NRBC ABSOLUTE 0.02 K/mm3 (0.00-0.02); NRBC Auto 0.2 /100 WBC (0.0-0.2); Platelet Count 287 K/mm3 (150-400); RDW Coefficient Variation 15.7 % (11.7-14.2); RDW Standard Deviation 48.9 fL (35.1-46.3); Red Blood Cell Count 3.69 M/mm3 (3.80-5.20); White Blood Cell Count 8.29 K/mm3 (4.00-11.30)
[2019-10-24 14:34] LABS: Alanine Aminotransfer (ALT/SGP 9 U/L (12-78); Albumin, Blood 2.7 g/dL (3.4-5.0); Albumin/Globulin Ratio 0.5 (0.8-1.8); Alk Phos 170 U/L (50-136); Anion Gap 17 mmol/L (6-16); Aspartate Aminotrans (AST/SGOT 22 U/L (12-37); Bilirubin, Total 0.3 mg/dL (0.1-1.0); Blood Urea Nitrogen 142 mg/dL (8-24); Bun/Creatinine Ratio 29.2 (12.0-20.0); CO2, Blood 22 mmol/L (21-32); Calcium, Blood 9.3 mg/dL (8.5-10.1); Chloride, Blood 94 mmol/L (98-108); Creatinine, Blood 4.86 mg/dL (0.40-1.00); Globulin, Blood 5.1 g/dL (2.2-4.0); Glomerular Filtration Rate 10 (60-); Glucose, Blood 93 mg/dL (70-99); Magnesium, Blood 2.7 mg/dL (1.6-2.4); Potassium, Blood 3.9 mmol/L (3.5-5.5); Sodium, Blood 133 mmol/L (136-145); Total Protein, Blood 7.8 g/dL (6.4-8.2); Troponin I <0.015 ng/mL (0.000-0.040)
[2019-10-24 14:37] LABS: PCO2 Arterial 37.4 mmHg (35-45); PO2 Arterial 61.3 mmHg (80-100); pH Blood Arterial 7.38 (7.35-7.45)
[2019-10-24 14:37] LABS: International Normalized Ratio 1.18; Prothrombin Time Results 12.5 Sec (9.7-11.5)
[2019-10-24 15:02] LABS: Phosphorus, Blood 9.5 mg/dL (2.5-4.9)
[2019-10-24] MEDS ORDERED: Bumetanide2 MG PO (15:09)
[2019-10-24 15:12] LABS: Source, Urine Catheter
[2019-10-24] MEDS ORDERED: BENZ100A PO (15:12)
[2019-10-24] MEDS ORDERED: LEVFLO500 PO (15:13)
[2019-10-24 15:17] LABS: Bilirubin, Urine Neg (Neg); Blood, Urine 5+ (Neg); Glucose Qualitative, Urine Neg (Neg); Ketones, Urine Neg (Neg); Leukocyte Esterase, Urine 3+ (Neg); Nitrite, Urine Neg (Neg); Protein, Urine 3+ (Neg); Urobilinogen, Urine NORM (Normal)
[2019-10-24 15:22] LABS: Appearance, Urine Cloudy (Clear); Color, Urine Yellow (P-Yellow)
[2019-10-24 15:24] LABS: Bacteria Many /hpf; Mucus Light (0-Heavy); Squamous Epithelial Cells Many /hpf (Few); White Blood Cells, Urine 25-50 /hpf (0-5)
[2019-10-24] MEDS ORDERED: Imdur60 MG PO (15:32)
[2019-10-24 16:50] LABS: Free Thyroxine 1.17 ng/dL (0.70-1.60)
[2019-10-24 16:51] LABS: Triiodothyronine, Free 1.72 pg/mL (2.18-3.98)
[2019-10-24 17:29] LABS: Adenovirus Not Detected (NOT DETECT); Coronavirus 229E Not Detected (NOT DETECT); Coronavirus HKU1 Not Detected (NOT DETECT); Coronavirus NL63 Not Detected (NOT DETECT); Coronavirus OC43 Not Detected (NOT DETECT); Human Metapneumovirus Not Detected (NOT DETECT); Human Rhinovirus/Enterovirus Not Detected (NOT DETECT); Influenza A/2009-H1 Not Detected (NOT DETECT); Influenza A/H1 Not Detected (NOT DETECT); Influenza A/H3 Not Detected (NOT DETECT); Influenza B Not Detected (NOT DETECT); Parainfluenza Virus 1 Not Detected (NOT DETECT); Parainfluenza Virus 2 Not Detected (NOT DETECT)
[2019-10-24 17:30] LABS: Bordetella pertussis Not Detected (NOT DETECT); Chlamydophila pneumoniae Not Detected (NOT DETECT); Mycoplasma pneumoniae Not Detected (NOT DETECT); Parainfluenza Virus 3 Not Detected (NOT DETECT); Parainfluenza Virus 4 Not Detected (NOT DETECT); Respiratory Syncytial Virus Not Detected (NOT DETECT)
--- NOTE | 2019-10-24 19:10 | NUR ---
SHIFT SUMMARY PT ARRIVED TO PCU FROM ED VIA STRETCHER AT 1730. PT ADMITTED FOR CHEST PAIN THAT STARTED WHILE SHE WAS GETTING READY FOR DIALYSIS TODAY. PT CURRENTLY DENIES ANY C/O CHEST PAIN/PRESSURE OR SOB. PT WAS ALSO NOTED TO HAVE A HR IN THE 20'S PER EMS, BUT HR IN THE 40-50'S UPON ARRIVAL TO THE ER. PER REPORT FROM ER, PT WAS IN A NEW ONSET AFIB, BUT HAS BEEN SB 50'S ON THE MONITOR. PT DOES HAVE AN AICD, PACEMAKER ORDERED TO BE INTERROGATED. SPOKE W/ DR. PEREZ VIA TELEPHONE TO NOTIFY HIM OF CARDIOLOGY CONSULT. ALSO CLARIFIED ORDER TO PLACE PACER PADS ON PT PER ER DOCTOR. DR. PEREZ STATED TO PLACE PACER PADS ON PT & KEEP ZOLL MONITOR IN THE ROOM; PT IS VERY ALLERGIC TO ADHESIVE (SHE HAS MULTIPLE LESIONS ON HER CHEST THAT SHE REPORTS IS FROM ADHESIVE TAPE PLACED ON HER SKIN) SO PACER PADS/ZOLL MONITOR ARE RIGHT OUTSIDE PT DOOR. PT ON ISOLATION PRECAUTIONS FOR R/O COVID-19. PT IS CURRENTLY RESTING IN BED RECEIVING DIALYSIS TREATMENT. NO COMPLAINTS AT THIS TIME. REPORT GIVEN TO ONCOMING RN.
[2019-10-25 01:55] LABS: BASOPHILS ABSOLUTE AUTO 0.05 K/mm3 (0.00-0.23); BASOPHILS PERCENT AUTO 1 % (0-2); EOSINOPHILS ABSOLUTE AUTO 0.18 K/mm3 (0.00-0.68); EOSINOPHILS PERCENT AUTO 3 % (0-6); Hematocrit 31.5 % (33.0-51.0); Hemoglobin 9.8 g/dL (11.5-16.0); IMMATURE GRAN ABSOLUTE AUTO 0.04 K/mm3 (0.00-0.10); IMMATURE GRAN PERCENT AUTO 1 % (0-1); LYMPHOCYTES ABSOLUTE AUTO 0.92 K/mm3 (0.84-5.20); LYMPHOCYTES PERCENT AUTO 13 % (21-46); MONOCYTES ABSOLUTE AUTO 0.39 K/mm3 (0.16-1.47); MONOCYTES PERCENT AUTO 6 % (4-13); Mean Corpuscular HGB 26.8 pg (26.0-34.0); Mean Corpuscular HGB Conc 31.1 g/dL (31.5-36.5); Mean Corpuscular Volume 86 fL (80-100); Mean Platelet Volume 10.5 fL (9.1-12.4); NEUTROPHILS ABSOLUTE AUTO 5.47 K/mm3 (1.96-9.15); NEUTROPHILS PERCENT AUTO 78 % (41-73); NRBC ABSOLUTE 0.02 K/mm3 (0.00-0.02); NRBC Auto 0.3 /100 WBC (0.0-0.2); Platelet Count 267 K/mm3 (150-400); RDW Coefficient Variation 15.6 % (11.7-14.2); RDW Standard Deviation 48.3 fL (35.1-46.3); Red Blood Cell Count 3.65 M/mm3 (3.80-5.20); White Blood Cell Count 7.05 K/mm3 (4.00-11.30)
[2019-10-25 02:15] LABS: Alanine Aminotransfer (ALT/SGP 12 U/L (12-78); Albumin, Blood 2.5 g/dL (3.4-5.0); Albumin/Globulin Ratio 0.6 (0.8-1.8); Alk Phos 155 U/L (50-136); Anion Gap 9 mmol/L (6-16); Aspartate Aminotrans (AST/SGOT 20 U/L (12-37); Bilirubin, Total 0.3 mg/dL (0.1-1.0); Blood Urea Nitrogen 83 mg/dL (8-24); Bun/Creatinine Ratio 23.4 (12.0-20.0); CO2, Blood 31 mmol/L (21-32); Calcium, Blood 8.3 mg/dL (8.5-10.1); Chloride, Blood 96 mmol/L (98-108); Creatinine, Blood 3.54 mg/dL (0.40-1.00); Globulin, Blood 4.5 g/dL (2.2-4.0); Glomerular Filtration Rate 14 (60-); Glucose, Blood 64 mg/dL (70-99); Magnesium, Blood 2.3 mg/dL (1.6-2.4); Potassium, Blood 3.4 mmol/L (3.5-5.5); Sodium, Blood 136 mmol/L (136-145); Troponin I <0.015 ng/mL (0.000-0.040)
[2019-10-25 02:20] LABS: Phosphorus, Blood 6.4 mg/dL (2.5-4.9)
--- NOTE | 2019-10-25 04:34 | NUR ---
SHIFT SUMMARY: APPROX 0300 PATIENTS BLOOD SUGARS DROPPING LOW AND NOT RESPONDING TO JUICE/FOOD. PATIENT STATES SHE FEELS COLD NAUSEATED WITHA JAMA AND SBP IN 90'S. MD CALLED, ORDERS RECIEVED, MEDICATION ADMINISTERED PER MD ORDERS. PATIENT BLOOD SUGAR IMPROVED AND SYMPTOMS RESOLVED. ALL OTHER VS BASELINE, CALL LIGHT WITHIN REACH, BED LOW AND LOCKED
--- NOTE | 2019-10-25 10:00 | NUR ---
DEVICE INTERROGATION DONE PER HOSPITALIST ORDER. PT. "GOT SHOCKED THREE TIMES". EGM SHOWS IRREGULAR RHYTHM POSSIBLY ATRIAL FLUTTER WITH PAUSE AND VENTRICULAR PACING AT RATE 40 BPM.(VENTRICULAR REFRACTORY PERIOD IS 250 MS). NORMAL VENTRICUALR SENSING AND PACING R WAVE 3.6mV. VENTRICULAR CAPTURE THRESHOLD IS .75V@.5ms. Associate Professor Of Library Media<1%. VF EPISODES:3. RATES 203-218 BPM, DURATION: :00:25 TO 02:29. EACH EPISODE ATPX1 UNSUCCESSFUL FOLLOWED BY 30J SHOCK WITH SUCCESSFUL CONVERSION. VT EPISODE: 1. SETTINGS: VT ZONE:171 BPM IN "MONITOR ONLY". VF ZONE:200 BPM. PROGRAMMED VENTRICULAR AMPLITUDE TO 2.0V@.5ms AND AUTOCAPTURE PROGRAMMED OFF. LOWER RATE PROGRAMMED TO 60 BPM. EGM SHOWS VENTRICULAR PACING. INFORMATION AND EPISODES SHOWN TO DR. SOMERS.
[2019-10-25 11:50] LABS: Hematocrit 35.1 % (33.0-51.0); Mean Corpuscular HGB Conc 31.3 g/dL (31.5-36.5); Mean Corpuscular Volume 86 fL (80-100); Mean Platelet Volume 10.8 fL (9.1-12.4); NRBC ABSOLUTE 0.05 K/mm3 (0.00-0.02); NRBC Auto 0.7 /100 WBC (0.0-0.2); Platelet Count 240 K/mm3 (150-400); RDW Coefficient Variation 15.7 % (11.7-14.2); RDW Standard Deviation 47.8 fL (35.1-46.3); Red Blood Cell Count 4.07 M/mm3 (3.80-5.20); White Blood Cell Count 6.92 K/mm3 (4.00-11.30)
--- NOTE | 2019-10-25 11:53 | NUR ---
LATE ENTRY - [address] PEREZ BP 77/45; NEW ORDERS FOR 500CC NC BOLUS; VERBALIZED CONCERN REGARDING BOLUS DUE TO FLUID STATUS, ASKED IN MIDODRINE; NO OTHER NEW ORDERS. 1100 - BOLUS COMPLETED; REASSESSED BP AT 78/40; PT REPROTING NEW CHEST PAIN BURING AND RADIATING T/O CHEST AND BETWEEN SHOULDER BLADES. EKG IN PROGRESS; BP 65/39; PT PLACED IN [place]; NOTIFIED DR PEREZ; NEW ORDERS TO TRANSFER TO ICU, 1L NC BOLUS; AND TROP STAT AND IN 6 HOURS. PT LS COARSE; PLACED ON 3L O2 VIA NC. 1110 - BP 91/39 THEN 94/36 WITH BOLUS AND POSITIONING. PLANS TO GO TO ICU 3. 1130 - PT TRANSFER TO ICU 3; BEDSIDE REPORT GIVEN TO KYA SOOD.
--- NOTE | 2019-10-25 12:09 | NUR ---
PT TRANSFERRE TO ICU 3 ROM PCU AT 1130 FOR HYPOTENSION. PT IS DROWS BUT ORIENTED. SBP IN HE 70S WITH BOLUS RUNNING. ATTEMPTED ADDITIONAL PIV BUT UNABLE TO GET IT. SPOKE WITH DR. PEREZ AND RECEIVED OK FOR PICC LINE. IV IN L WRIST HAS GOOD BLOOD RETURN SO LEVOPHED STARTED AT 5MCG/MIN WHILE WAITING FOR PICC LINE. MIDODRINE ALSO GIVEN. BP CAME UP TO 110/81 SO LEVOPHED TURNED DOWN TO 3MCG/MIN. LUNGS CLEAR, 100% ON 2L/C. 100% PACED AT 60. DENIES CHEST PAIN. PCU NURSE TO CALL AND UPDATE PT'S FAMILY ON TRANSFER.
--- NOTE | 2019-10-25 14:02 | NUR ---
PICC LINE IN. PRESSORS TITRATED UP PT'S BP DROPPED. PT COMPLAINED OF NAUSEA AND CHEST PAIN WHEN HER PRESSURES WERE LOWER. DR. PEREZ TO THE BEDSIDE TO EVALUATE PT. RECEIVED ORDERS FOR VASOPRESSIN AND NETWORK CONTROL SUPERVISOR CONSULT. DR. PEREZ STATED HE WOULD SPEAK WITH DR. CUELLO.
[2019-10-25 14:35] LABS: Bun/Creatinine Ratio 23.4 (12.0-20.0); Calcium, Blood 8.9 mg/dL (8.5-10.1); Creatinine, Blood 3.67 mg/dL (0.40-1.00); Potassium, Blood 4.1 mmol/L (3.5-5.5)
--- NOTE | 2019-10-25 15:10 | NUR ---
Met pt. lying in bed and nurses in the room attending to her needs, Offered prayers encouragement and spiritual support.
--- NOTE | 2019-10-25 15:48 | NUR ---
PT HAS CONTINUED TO BE HYPOTENSIVE WITH VASOPRESSIN AND LEVOPHED RUNNING. LEVOPHED TITRATED PER ORDERS. SPOKE WITH DR. CUELLO AND RECEIVED ORDERS FOR ALBUMIN AND EPINEPHRINE IF NEEDED. PT HAS BEEN NAUSEOUS, PT STATES ZOFFRAN DIDN'T HELP. SPOKE WITH DR. CUELLO ORDERED PHENERGAN.
--- NOTE | 2019-10-25 16:13 | NUR ---
Echocardiogram completed.
--- NOTE | 2019-10-25 16:16 | NUR ---
DR. SOMERS HERE TO SEE PT. GAVE ORDERS TO USE DOBUTMINE BEFORE EPI GTT. ORDERS FROM DR. WOODARD FOR ADITIONAL 500NS. PT CONTINUES TO BE NAUSEOUS, PHENERGAN GIVEN. DR. SOMERS TO GIVE UPDATE TO PT'S SON.
[2019-10-25 16:47] LABS: Source, Urine Catheter
[2019-10-25 16:52] LABS: Bilirubin, Urine Neg (Neg); Blood, Urine 5+ (Neg); Glucose Qualitative, Urine Neg (Neg); Ketones, Urine Neg (Neg); Leukocyte Esterase, Urine 3+ (Neg); Nitrite, Urine Neg (Neg); Protein, Urine 3+ (Neg); Urobilinogen, Urine 1+ (Normal)
--- NOTE | 2019-10-25 16:57 | NUR ---
PT'S MONITOR STARTED ALARMING ASYSTOLE. HR CHANGED WITH MUCH SMALLER AMPLITUDE QRS FOLLOWING PACER SPIKES. WENT IMMEDIATELY TO PT'S ROOM AND SHE WAS UNRESPONSIVE AND VERY PALE. GRABBED DOPPLER AT THAT WAS AT BEDSIDE AND PT'S RHYTHM CHANGED BACK TO ORIGINAL RHYTHM AND PULSE WAS PRESENT. PT REMAINED VERY LETHARGIC AND BREATHING VERY SHALLOW ALTHOUGH MAINTAINING SPO2 100% ON RA. DR. CUELLO TO THE BEDSIDE. ASSESSED PT THEN CALLED PT'S WHO SWITCHED PT TO DNR/DNI. PRESSORS STILL INFUSING. PT WAKES WITH DEEP STERNAL RUB. SHE CONTINUES TO HAVE OCCASIONAL BRIEF RHYTHM CHANGES DROPPING PACER SPIKES OR CHANGE IN QRS. CONTIUNING TO MONITOR.
[2019-10-25 17:03] LABS: Appearance, Urine Turbid (Clear); Color, Urine Yellow (P-Yellow)
[2019-10-25 17:05] LABS: Red Blood Cells, Urine TNTC /hpf (0-2); White Blood Cells, Urine TNTC /hpf (0-5)
[2019-10-25 17:06] LABS: Bacteria Many /hpf; Hyaline Casts 0-2 /lpf (0-2); Squamous Epithelial Cells Not Seen /hpf (Few)
--- NOTE | 2019-10-25 17:49 | NUR ---
Spouse, Ilda, was called as pt was begining to decline. I waited for Ilda and provided children counselor and prayer at bedside. Simon was minimally responsive to Ilda. She appears comfortable and sleepy. Ilda appears calm and reasonable. He has been in contact with Simon's son in [place]. Ilda declined further needs. I will remain available.
--- NOTE | 2019-10-25 17:50 | NUR ---
PT'S AT THE BEDSIDE AND SPOKE WITH DR. CUELLO AND PALLIATIVE CARE.
--- NOTE | 2019-10-25 18:26 | NUR ---
SHIFT SUMMARY: PT WAS TRANSFERRED FROM PCU TODAY FOR HYPOTENSION AND HER BP CONTINUED TO FALL AFTER HER ARRIVAL. LEVOPHED, VASOPRESSIN AND DOBUTAMINE WERE STARTED AND TITRATED HER BP FELL. SHE HAD AN EPISODE OF LIKELY PEA THAT SHE RECOVERED SPONTANEOUSLY FROM. HER MENTATION CONTINUES TO BE POORER THAN HER ARRIVAL. SHE WAKES UP, BUT DOES NOT SAY ANYTHING PURPOSEFUL. LUNGS ARE CLEAR, PACED RHYTHM. PT'S IS AT THE BEDSIDE.
--- NOTE | 2019-10-25 20:00 | NUR ---
ASSUMED PT CARE: PT IN ISOLATION TO ADARSH SANTOS19. PT IN ISOLATION GEAR AT PT BEDSIDE. PT SOMNOLENT, MILDLY LABORED BREATHING, BUT W SATS WELL O 1.5L/NC. POOR COLOR. PICC TO [facility] FOR PRESSOR INFUSION. PT ON VASOPRESSIN, DOBUTAMINE 10MCG/KG/MIN, AND LEVOPHED 25MCG/MIN. MONITOR SHOWS MOSTLY V PACED RHYTHM W RATE ~60. PEDAL PULSES BY DOPLER. PT ROUSES TO VOICE & REMEMBERS THAT SHE WAS TRANSFERED TO ICU, KNOWS DATE, BUT FORGOT SAID GOOD-BYE & WENT HOME. CALLED HER SON ON HER PHONE AND BECAME EMOTIONAL THAT SHE IS SO ILL AND THAT SHE IS NOT ABLE TO SEE HER FAMILY. ON FURTHER QUERY, PT CO ABD PAIN THAT IS INTERMITTANT, BUT DENIES NAUSEA. CONT TO MONITOR.
--- NOTE | 2019-10-25 20:39 | NUR ---
in to speak with client support associate about plan of cre. review of pt with chaplian and dislysis nurse for plan of care.
[2019-10-26 03:09] LABS: HBSAG SCREEN Negative (Negative); HEP A AB, IGM Negative (Negative); HEP B CORE AB, IGM Negative (Negative); HEP C VIRUS AB <0.1 (0.0-0.9)
[2019-10-26 04:30] LABS: BASOPHILS ABSOLUTE AUTO 0.04 K/mm3 (0.00-0.23); BASOPHILS PERCENT AUTO 0 % (0-2); EOSINOPHILS PERCENT AUTO 0 % (0-6); Hematocrit 31.7 % (33.0-51.0); Hemoglobin 9.7 g/dL (11.5-16.0); IMMATURE GRAN ABSOLUTE AUTO 0.25 K/mm3 (0.00-0.10); IMMATURE GRAN PERCENT AUTO 1 % (0-1); LYMPHOCYTES PERCENT AUTO 3 % (21-46); MONOCYTES ABSOLUTE AUTO 0.76 K/mm3 (0.16-1.47); MONOCYTES PERCENT AUTO 4 % (4-13); Mean Corpuscular HGB 27.2 pg (26.0-34.0); Mean Corpuscular HGB Conc 30.6 g/dL (31.5-36.5); Mean Platelet Volume 10.5 fL (9.1-12.4); NEUTROPHILS ABSOLUTE AUTO 18.68 K/mm3 (1.96-9.15); NEUTROPHILS PERCENT AUTO 92 % (41-73); NRBC ABSOLUTE 0.07 K/mm3 (0.00-0.02); NRBC Auto 0.3 /100 WBC (0.0-0.2); Platelet Count 145 K/mm3 (150-400); RDW Coefficient Variation 15.9 % (11.7-14.2); Red Blood Cell Count 3.57 M/mm3 (3.80-5.20); White Blood Cell Count 20.43 K/mm3 (4.00-11.30)
[2019-10-26 04:31] LABS: Mean Corpuscular Volume 89 fL (80-100)
[2019-10-26 04:53] LABS: Albumin, Blood 2.7 g/dL (3.4-5.0); Anion Gap 19 mmol/L (6-16); Blood Urea Nitrogen 83 mg/dL (8-24); Bun/Creatinine Ratio 23.6 (12.0-20.0); CO2, Blood 17 mmol/L (21-32); Chloride, Blood 96 mmol/L (98-108); Creatinine, Blood 3.52 mg/dL (0.40-1.00); Glomerular Filtration Rate 14 (60-); Glucose, Blood 323 mg/dL (70-99); Potassium, Blood 4.5 mmol/L (3.5-5.5); Sodium, Blood 132 mmol/L (136-145); Vancomycin, Random 23.3 ug/mL
[2019-10-26 04:56] LABS: Phosphorus, Blood 8.4 mg/dL (2.5-4.9)
--- NOTE | 2019-10-26 06:40 | NUR ---
SUMMARY: PT IS MORE ALERT THIS AM, BUT ALSO W INCREASED NAUSEA, AND RETCHING, BUT WO EMESIS. WAS MED FIRST W ZOFRAN, AND PT STATES "IT DOESN'T WORK". PT ALSO MED W PHENERGAN 12.5MG. CONT TO BE ALERT & AWARE OF SITUATION, ASKING WHAT MEDICATIONS SHE IS ON. HR UP TO 80'S, AND SINUS RHYTHM. TOTAL URINE THIS SHIFT IS 775 MLS. LEVOPHED HAS BEEN TITRATED DOWN TO 16MCG/MIN, DOBUTAMINE CONTINUES AT 10MCG/KG/MIN, AND VASOPRESSIN AT 0.04 UNITS/MIN. LAB REPORTS THAT PT IS COVID NEGATIVE. WILL REPORT TO DAYSNYFT.
--- NOTE | 2019-10-26 09:33 | NUR ---
CARE OF PT ASSUMED AT 0700, GTT'S CHECKED WITH NOCT RN. DOBUAMINE AT 10MCG, LEVOPHED AT 16MCG, VASOPRESSIN GTT AT 0.04UNITS. PT C/O NAUSEA, AND WAS FREQUENTLY WRETCHING, NO EMESIS. ABD TENDER, WITH ABSENT BT'S. DR CUELLO CALLED AND GIVEN UPDATE. 16F NG PLACED TO RIGHT NARE W/O DIFF AND PLACED TO LIS. SMALL AMT OF ORANGE SECRETIONS TO CANISTER. PO MEDS HELD. DR PEREZ AT BEDSIDE SOON AFTER NG PLACED. KUB AND STAT LACTIC ORDERED. NG ADVANCED 10CM AFTER KUB TAKEN. LACTIC ACID CH AT 9.1; DR CUELLO IN UNIT AND NOTIFED. PT ALSO GIVEN FENT 25MCG FOR ABD PAIN, AND LEG PAIN. NAUSEA GREATLY IMPROVED AFTER NG TUBE, ABD ALSO SOFT AND NONTENDER AFTER NG. PT REPOSITIONED IN BED WITH SEVERAL PILLOWS FOR COMFORT. DR PEREZ IN UNIT; DR CUELLO SPOKE WITH DR PEREZ THIS AM.
[2019-10-26 09:49] LABS: Amylase, Blood 542 U/L (25-115)
--- NOTE | 2019-10-26 13:35 | NUR ---
PT C/O SEVERE NAUSEA, WRETCHING, NO EMESIS. NG CONT TO BE AT LIS. PHENERGAN IVP GIVEN. BS 400. DR CUELLO NOTIFIED. ONE TIME DOSE OF SQ INSULIN 15UNITS ORDERED AND GIVEN. FENT IVP GIVEN FOR 8/10 PAIN TO EPSIGASTRIC AREA. LEVOPHED TITRATED DOWN TO 12MCG, WILL CONT TO TITRATE DOWN TOLERATED. PT AFEBRILE, BLOOD CX'S SENT
--- NOTE | 2019-10-26 13:40 | NUR ---
Pt. is lying in bed reting,she is much better and happy because she is freed from isolation, encourage pt and offered prayers and spiritual suppot.
--- NOTE | 2019-10-26 16:16 | NUR ---
Review of patient with nursing. pt aggitated itching and nauseated. Theraputic time with patient to cool her feel and help with itching. plan is to continue pressors and dialysis and see if improvement. Will continue to follow for plan of care with .
--- NOTE | 2019-10-26 17:12 | NUR ---
BLOOD SUGAR ELEVATED AFTER 15UNITS SQ GIVEN. INSULIN GTT STARTED AT 5UNITS/HR. HD STARTED. PT SLEEPING, AROUSES TO VOICE, ANSWERS QUESTIONS AND FOLLOWS DIRECTIONS BUT QUICKLY FALLS BACK TO SLEEP. LEVOPHED TITRATED DOWN TO 8MCG. DOPUTAMINE AND VASOPRESSIN REMIAN UNCHANGED.
--- NOTE | 2019-10-26 18:45 | NUR ---
HD COMPLETE. NO FLUID WAS TAKEN OFF. PT WENT INTO BIGEMINY/RATE 90'S DURING HD. LEVOPHED WAS INCREASED UP TO 12MCG DURING HD WELL. INSULIN GTT AT 3UNITS/HR. DOUBLE STRENGTH LEVOPHED AND DOBUTAMINE ORDERED TO CUT BACK ON THE FLUID AND D5.
[2019-10-26 19:10] LABS: Vancomycin, Random 12.4 ug/mL
--- NOTE | 2019-10-26 22:19 | NUR ---
PATIENT IS COMMUUNICATING WITH STAFF ABOUT BEING DONE WITH TREATMENTS. OCCASIONAL MOIST COUGH THAT IS NOW PRODUCTIVE OF SPUTUM. SHE IS ON RA, BIOX 94-95%. PATIENT DOES HAVE GENERALIZED EDEMA WITH PITTING EDEMA ON THE BACK OF HER CALVES. THE LEVOPHED AND DOBUTAMINE ARE NOW DOUBLE STRENGTH, DOUBLE CHECKED SETTINGS WITH 2ND NURSE. PATIENT COMPLAINS OF INTERMITTENT NAUSEA, NG TO LIS, FLUSHED NG TO CLEAR WITH 120CC, WITH FULL RETURN. PATIENT HELPS TO TURN AND REPOSTITION WITH PROMPTING. IV REMOVED FROM HER LT ARM.
--- NOTE | 2019-10-26 23:13 | NUR ---
PATIENT C/O NAUSEA WITH COUGHING. PRODUCTIVE COUGH WITH BRIGHT RED BLOOD MIXED WITH CLEAR MUCUS. PATIENT DID HAVE THICK DARK MUCUS WITH COUGH 45 MINS PRIOR. MEDICATED WITH 12.5 PHENERGAN, WITH RELIEF OF NAUSEA.
[2019-10-27 03:16] LABS: BASOPHILS ABSOLUTE AUTO 0.03 K/mm3 (0.00-0.23); BASOPHILS PERCENT AUTO 0 % (0-2); EOSINOPHILS ABSOLUTE AUTO 0.04 K/mm3 (0.00-0.68); EOSINOPHILS PERCENT AUTO 0 % (0-6); Hematocrit 30.5 % (33.0-51.0); Hemoglobin 9.7 g/dL (11.5-16.0); IMMATURE GRAN ABSOLUTE AUTO 0.09 K/mm3 (0.00-0.10); IMMATURE GRAN PERCENT AUTO 1 % (0-1); LYMPHOCYTES ABSOLUTE AUTO 0.74 K/mm3 (0.84-5.20); LYMPHOCYTES PERCENT AUTO 5 % (21-46); MONOCYTES ABSOLUTE AUTO 0.91 K/mm3 (0.16-1.47); MONOCYTES PERCENT AUTO 6 % (4-13); Mean Corpuscular HGB 27.2 pg (26.0-34.0); Mean Corpuscular HGB Conc 31.8 g/dL (31.5-36.5); NEUTROPHILS ABSOLUTE AUTO 14.48 K/mm3 (1.96-9.15); NEUTROPHILS PERCENT AUTO 89 % (41-73); NRBC ABSOLUTE 0.15 K/mm3 (0.00-0.02); NRBC Auto 0.9 /100 WBC (0.0-0.2); Platelet Count 119 K/mm3 (150-400); RDW Standard Deviation 47.8 fL (35.1-46.3); Red Blood Cell Count 3.57 M/mm3 (3.80-5.20); White Blood Cell Count 16.29 K/mm3 (4.00-11.30)
[2019-10-27 03:18] LABS: Mean Corpuscular Volume 85 fL (80-100)
[2019-10-27 03:34] LABS: Albumin, Blood 2.6 g/dL (3.4-5.0); Anion Gap 11 mmol/L (6-16); Blood Urea Nitrogen 56 mg/dL (8-24); CO2, Blood 27 mmol/L (21-32); Calcium, Blood 8.3 mg/dL (8.5-10.1); Chloride, Blood 96 mmol/L (98-108); Creatinine, Blood 2.67 mg/dL (0.40-1.00); Glomerular Filtration Rate 19 (60-); Glucose, Blood 191 mg/dL (70-99); Magnesium, Blood 1.8 mg/dL (1.6-2.4); Potassium, Blood 3.6 mmol/L (3.5-5.5); Sodium, Blood 134 mmol/L (136-145); Vancomycin, Random 34.3 ug/mL
[2019-10-27 03:43] LABS: Phosphorus, Blood 4.3 mg/dL (2.5-4.9)
--- NOTE | 2019-10-27 04:15 | NUR ---
PATIENT HAS BEEN VOCAL ABOUT PAIN, IT IS DIFFICULT FOR HER TO COMMUNICATE WHAT IS HURTING. SHE WAS ABLE TO ARTICULATE THAT SHE HAD 10/10 BODY ACHES. FENTANLY GIVEN WITH MODERATE STATED RELIEF, HOWEVER SHE CONTINUES TO CALL OUT WITH PAINFUL MOANS. WHEN SHE COUGHS, SHE STATES NAUSEA.
--- NOTE | 2019-10-27 06:41 | NUR ---
sHIFT SUMMARY RT FOOT VERY ITCHY. BOTH LE COVERED IN LOTION AND FEET MASSAGED. PT ASKING TO HAVE RN SCRATCH HER FEET TO HELP HER ITCHING/PAIN. WILL GIVE REPORT TO DAY SHIFT NURSE. NO ACUTE CHANGES.
--- NOTE | 2019-10-27 09:01 | NUR ---
BEDSIDE REPORT TAKEN. DOBUTAMINE GTT AT 10MCG, LEVOPHED AT 18MCG, VASOPRESSIN AT 0.04UNITS, INSULIN GTT AT 1UNIT. PT AWAKE BUT VERY LETHARGIC. PT MOANING/CRYING, STATING "HELP ME" AND "I DONT WANT TO DO THIS ANYMORE", OVER AND OVER. PT C/O PAIN "EVERYWHERE", UNABLE TO GIVE SPECIFICS. PT C/O NAUSEA AND STARTED WRETCHING, NO EMESIS. NG CLAMPED; UNCLAMPED AND PLACED TO LIS W WRETCHING. FENT 25MCG AND PHENERGAN 25MG GIVEN FOR PAIN AND NAUSEA. PT RELAXED AND SLEEPING AFTER MEDICATION. PT CONT TO BE AROUSABLE TO VOICE. 2L O2 PLACED FOR SHALLOW RESP WITH SATS 88% AFTER FENT. SATS NOW 99% ON 2L. LUNGS COARSE T/O, PT HAS WET COUGH, OCCASSIONALLY PRODUCTIVE. AM MEDS GIVEN DOWN NG AFTER PHENERGAN GIVEN. LEVOPHED TITRATED DOWN TO 8MCG FROM 18MCG; BUT BP REMAINS VERY LABILE WITH LOW DIASTOLIC PRESSURES. DR CUELLO UPDATED. PALIATIVE CARE CALLED. WILL UPDATE PT'S ON PT'S CONDITION. HD IN ROOM.
--- NOTE | 2019-10-27 09:31 | NUR ---
DIALYSIS DC'ED TX DUE TO NEW ORDER FOR COMFORT CARE PER DR CUELLO AND PALLITIVE CARE RN, HE HAD JUST SPOKEN TO THE FAMILY
--- NOTE | 2019-10-27 09:46 | NUR ---
PALIATIVE CARE AND DR CUELLO SPOKE. PALIATIVE CARE UPDATED PT'S . PT NOW COMFORT CARE. HD STOPPED PRIOR TO BEING STARTED. WILL TITRATE PRESSORS AND OTHER GTT'S OFF SLOWLY. PT'S AND SON WILL BE ALLOWED IN TO BE AT BEDSIDE. DR SOMERS NOTIFED; ICD TO BE TURNED OFF. HC NOTIFIED.
--- NOTE | 2019-10-27 09:48 | NUR ---
Pt resting in bed and is receiving dialysis upon arrival. Spoke with Bedside RN Edyta and Dr Dean. Discussed case and prognosis. Edyta reports Pt has been experiencing significant discomfort and stating she does not want to do this anymore. Pt is currently receiving a significant amount of pressors and did not tolerate dialysis well yesterday. Care team reports goals of care should be revisited with spouse including comfort care as an option. Called and spoke with Pt's Ilda. Engaged in therapeutic discussion regarding goals of care. Listened as Ilda reports Pt has been discussing with him regarding goals of care. Ilda reports Pt is ready to focus on comfort. Educated Ilda on comfort measures philosophy with V/U made by Ilda. Ilda chooses to place Pt on comfort measures only. Discussed hospital policy regarding visitors for Pt's who become imminent and instructed ICU nurse will call when appropriate to come in and visit. Spoke with Bedside KYA Lan and Dr Dean. Relayed family's wishes. Placed order for comfort measures and comfort medications per V/O from Dr Dean. Dr Dean will address discontinuing current medications. Spoke with Dr Galeas discussed case and plan for comfort care. Dr Galeas is in agreement with plan. Palliative Care will remain available.
--- NOTE | 2019-10-27 10:18 | NUR ---
NG TUBE DC'D. INSULIN GTT AND ZOSYN DC'D. WILL TITRATE PRESSORS AND DOBUTAMINE OFF WHEN FAMILY ARRIVES. AWAITING HC TO TURN ICD OFF.
--- NOTE | 2019-10-27 11:26 | NUR ---
O2 TAKEN OFF BY PT AND LEFT OFF. MERISSA FROM TURNED OFF AICD/PACER. PT'S AND SON AT BEDSIDE. VASOPRESSIN TURNED OFF. DOBUTAMINE DECREASED TO 5MCG, LEVOPHED AT 4MCG. PT AWAKE AND SPEAKING WITH FAMILY. STATES NAUSEA IS ON AND OFF. STATES PAIN IS THERE BUT OKAY RIGHT NOW, PT CONTINUES TO MOAN. FAMILY AND PT NOTIFIED THAT PAIN MEDICATION IS AVAIABLE. PT BATHED AND REPSOSITIONED W MULTIPLE PILLOWS PRIOR TO FAMILY ARRIVING. PT MEDICATED W FENT AND ZOFRAN FOR BATH.
--- NOTE | 2019-10-27 11:32 | NUR ---
Pacemaker and ICD therapies both turned OFF per Dr Galvez's order.
--- NOTE | 2019-10-27 12:19 | NUR ---
PT AWAKE AND C/O PAIN. ORAL MS GIVEN. PT NAUSEATED WITH SOME DRY HEAVING. DR CUELLO NOTIFIED; COMPAZINE ORDERED. FATHER CLEATUS IN TO SEE PT. REMAINS AT BEDSIDE
--- NOTE | 2019-10-27 12:42 | NUR ---
PT AWAKE C/O ITCHING, BENADRYL ORDERED. LEVOPHED AND DOBUTAMINE TURNED OFF AT 1200.
--- NOTE | 2019-10-27 12:52 | NUR ---
Met Pt. lying in bed and hr son in the room on visit ,her nurse in the room attending pt. in her needs. Talked to the son and pt. on sacrament of the sick after which I annointed the pt. and offered prayer and spiritual support.
--- NOTE | 2019-10-27 14:50 | NUR ---
PT RESTING IN BED, SLEEPING ON AND OFF. PT ABLE TO SPEAK TO FAMILY MEMBERS ON THE PHONE. PT'S STATED THAT PT WAS IN PAIN, PT DENIED PAIN. PT HAS BED AVAILABLE ON 3RD FLOOR. PT IN SINUS RHYTHM IN 60'S.
--- NOTE | 2019-10-27 17:09 | NUR ---
Shift Summary Patient arrived from ICU roughly around 1530 via bed with at bedside. Medicated for nausea x 1 and pain x 1 thus far. Spiritual care visited patient x 1 since being transferred to the Medical Unit. Patient is comfortable at this time, will continue to monitor.
--- NOTE | 2019-10-27 18:58 | NUR ---
Initial spiritual care note: Asked by RN to provide comfort and presence to Simon. Spouse had gone home, and Simon was confused, sleepy, but fearful. She had also been denying medication for pain. She admitted to me that she was in pain. Gently counseled and disuaded fears. We spoke about her belief and I affirmed her jose a. She does not appear to be aware she is nearing end of life, but tells me that she is not fearful of . She has a good jose a in a loving God. Simon accepted medications and began to visibly relax into peaceful rest. Father Adonay has provided neccessary [employer] rites for end-of-life. I will remain available.
--- NOTE | 2019-10-28 06:17 | NUR ---
SHIFT SUMMARY PT HAS RESTED MOST OF THE NIGHT. SHE HAS DENIED PAIN WHEN ASKED. SHE COMPLAINS OF ITCHING AND IRITATION FROM THE LATEX TAPE WHERE PERMACATH SITE IS LOCATED, WELL TO HER ARMS AND LEGS. WILL NOTIFY DAYSHIFT RN TO FOLLOW UP WITH DIALYSIS NURSE REGARDING TAPE AND PERMACATH SITE. BENEDRYL GIVEN FOR RELIEF. PT HAS DECLINED REPOSITIONING WHEN ASKED. A/OX3, MAKES NEEDS KNOWN. BULLOCK IN PLACE PATENT AND DRAINING WITHOUT MUCH OUTPUT. COMFORT ASSESSED T/O SHIFT. BED IN LOWEST POSITION, CALL LIGHT WITHIN REACH. WILL CONTINUE TO MONITOR AND REPORT TO ONCOMING RN.
--- NOTE | 2019-10-28 09:04 | NUR ---
Full Code Patient wishes at this point in time to be changed to Full code. Dr. Mari at bedside and aware of this decision. present at the bedside as well.
--- NOTE | 2019-10-28 09:05 | NUR ---
Defibrilator leads Dr. Galvez was notifed of patient's decision to be Full Code. Per Dr. Galvez, defib leads will be placed back on by his staff.
--- NOTE | 2019-10-28 09:07 | NUR ---
Pt resting in bed upon arrival. Dr Mari is just leaving Pt's room. Dr Mari reports Pt is more alert today and mentation has improved. Pt has elected to D/C comfort measures and would like to pursue treatment. Spoke with Pt. Pt is A&OX3. Engaged in theapeutic discussion regarding goals of care. Confirmed Pt does want to continue treatment and is agreeable with continued dialysis if needed. Pt is requesting to have visitors. Educated Pt on hospital policy and visitor restriction. Pt reports no other concerns at this time. Dr Mari will add orders, Bedside RN will call in consult for Dr Correa and discuss with Dr Galvez in regards to having defibrilator leads placed. Palliative Care will remain available.
--- NOTE | 2019-10-28 09:07 | NUR ---
Dialysis Dr. Correa notified of patient's decision to be Full code. Orders received for Midodrine, Renal panel, Mag, H&H, and orders to dialyze today. Also received order for Albumin. This RN notified handle and vent machine operator Jered RE order to dialyze today; this is now scheduled for 929. [facility] notified of patient's decision to continue dialysis treatment per Dr. Correa.
[2019-10-28 09:38] LABS: Hematocrit 29.1 % (33.0-51.0); Hemoglobin 8.8 g/dL (11.5-16.0)
[2019-10-28 09:56] LABS: Albumin, Blood 2.4 g/dL (3.4-5.0); Anion Gap 8 mmol/L (6-16); Blood Urea Nitrogen 63 mg/dL (8-24); Bun/Creatinine Ratio 16.6 (12.0-20.0); CO2, Blood 28 mmol/L (21-32); Calcium, Blood 8.3 mg/dL (8.5-10.1); Chloride, Blood 99 mmol/L (98-108); Creatinine, Blood 3.79 mg/dL (0.40-1.00); Glomerular Filtration Rate 13 (60-); Glucose, Blood 85 mg/dL (70-99); Phosphorus, Blood 4.2 mg/dL (2.5-4.9); Potassium, Blood 3.4 mmol/L (3.5-5.5); Sodium, Blood 135 mmol/L (136-145)
--- NOTE | 2019-10-28 10:34 | NUR ---
PT IN DIALYSIS. PER V/O ORDER FROM DR SOMERS AT 5415, PACEMAKER TURNED BACK ON TO VVI 60 BPM, AND ICD THERAPIES TURNED BACK "ON"
--- NOTE | 2019-10-28 14:17 | NUR ---
BP 85/[address] B[address]ERRA AND [address]. LUIS RE ABOVE BP. ORDERS RECEIVED FROM DR. LUIS FOR ONE TIME DOSE OF BUMEX AND MIDODRINE.
--- NOTE | 2019-10-28 14:45 | NUR ---
BUMEX PER DR. BECERRA, MODIFICATIONS TO DR. LUIS'S ORDER FOR IV BUMEX WAS VERBALIZED TO THIS RN. NEW ORDER TO HOLD BUMEX IF SBP IS LESS THAN 110.
--- NOTE | 2019-10-28 17:34 | NUR ---
Shift Summary A/Ox3, pleasant and cooperative with care. Patient is mildly drowsy, but arousable and able to continue a conversation when awoken. Patient has hemodialysis today with 2 x 25 gm albumin given during dialysis. Patient also had 1 unit PRBC transfused, patient tolerated both well. SBP remained < 100, Dr. Mari aware. Patient able to follow directions when asked to assist with repositioning. Code status has been changed to Full and is reflected on patient's medical record. C/O all over itchiness mostly on BLE, medicated x 1 per EMAR. Call light in reach, will continue to monitor.
--- NOTE | 2019-10-28 18:58 | NUR ---
NASAL CONGESTION PT C/O NASAL CONGESTION, NOTIFIED DR. BECERRA, ORDER RECEIVED.
--- NOTE | 2019-10-28 19:20 | NUR ---
RECEIVED REPORT FROM DAY SHIFT RN. ASSUMED CARE OF PT. RESTING COMFORTABLY AT THIS TIME, NO S/S ACUTE DISTRESS NOTED. DENIES ANY NEEDS AT THIS TIME. CALL LIGHT AND POSSESSIONS IN REACH, WILL CONTINUE TO MONITOR.
--- NOTE | 2019-10-29 02:35 | NUR ---
SPOKE TO DR. MCKEON REGARDING PT'S COUGH. ORDERS RECEIVED.
[2019-10-29 05:01] LABS: BASOPHILS ABSOLUTE AUTO 0.04 K/mm3 (0.00-0.23); BASOPHILS PERCENT AUTO 0 % (0-2); EOSINOPHILS ABSOLUTE AUTO 0.68 K/mm3 (0.00-0.68); EOSINOPHILS PERCENT AUTO 7 % (0-6); Hematocrit 30.3 % (33.0-51.0); Hemoglobin 9.4 g/dL (11.5-16.0); IMMATURE GRAN ABSOLUTE AUTO 0.08 K/mm3 (0.00-0.10); IMMATURE GRAN PERCENT AUTO 1 % (0-1); LYMPHOCYTES ABSOLUTE AUTO 0.81 K/mm3 (0.84-5.20); LYMPHOCYTES PERCENT AUTO 8 % (21-46); MONOCYTES ABSOLUTE AUTO 0.61 K/mm3 (0.16-1.47); MONOCYTES PERCENT AUTO 6 % (4-13); Mean Corpuscular HGB 27.3 pg (26.0-34.0); Mean Platelet Volume 11.8 fL (9.1-12.4); NEUTROPHILS ABSOLUTE AUTO 7.55 K/mm3 (1.96-9.15); NEUTROPHILS PERCENT AUTO 77 % (41-73); NRBC ABSOLUTE 0.43 K/mm3 (0.00-0.02); NRBC Auto 4.4 /100 WBC (0.0-0.2); Platelet Count 95 K/mm3 (150-400); RDW Coefficient Variation 17.2 % (11.7-14.2); RDW Standard Deviation 50.4 fL (35.1-46.3); Red Blood Cell Count 3.44 M/mm3 (3.80-5.20); White Blood Cell Count 9.77 K/mm3 (4.00-11.30)
[2019-10-29 05:06] LABS: Mean Corpuscular Volume 88 fL (80-100)
[2019-10-29 05:18] LABS: Albumin, Blood 2.9 g/dL (3.4-5.0); Anion Gap 9 mmol/L (6-16); Blood Urea Nitrogen 49 mg/dL (8-24); Bun/Creatinine Ratio 13.7 (12.0-20.0); CO2, Blood 29 mmol/L (21-32); Calcium, Blood 8.6 mg/dL (8.5-10.1); Chloride, Blood 100 mmol/L (98-108); Creatinine, Blood 3.57 mg/dL (0.40-1.00); Glomerular Filtration Rate 14 (60-); Glucose, Blood 93 mg/dL (70-99); Phosphorus, Blood 4.1 mg/dL (2.5-4.9); Potassium, Blood 3.5 mmol/L (3.5-5.5); Sodium, Blood 138 mmol/L (136-145)
--- NOTE | 2019-10-29 07:12 | NUR ---
SHIFT SUMMARY: PT REQUESTED TO BE TRANSFERRED TO RECLINER EARLY THIS AM, CHARLES LIFT USED. PT TOLERATED WELL. REMAINS IN RECLINER AT THIS TIME. NO S/S ACUTE DISTRESS AND NO ACUTE EVENTS NOTED T/O NIGHT, VS STABLE. SLEPT ON AND OFF. CALL LIGHT, POSSESSIONS IN REACH, CHAIR ALARM ACTIVATED. WILL CONTINUE TO MONITOR UNTIL DAY RN ASSUMES CARE.
[2019-10-29] MEDS ORDERED: BENADRYL25 MG PO (14:14)
--- NOTE | 2019-10-29 16:46 | NUR ---
SHIFT SUMMARY PT SITTING IN RECLINER AT START OF SHIFT, UNTIL GOING DOWN TO DIALYSIS. PT ASSISTED BACK INTO BED FOR DIALYSIS; 2P MAX ASSIST PT IS WEAK AND UNSTEADY. PT ONLY ATE BITES FOR BREAKFAST, SHE STATED "EGGS SUCK". PT RETURNED FROM DIALYSIS WHEN LUNCH ARRIVED, BUT C/O NAUSEA D/T DIALYSIS. ZOFRAN GIVEN PER EMAR AND PT WAS ABLE TO EAT HER VEGTABLES AND A FEW BITES OF OTHER STUFF. PT LATER C/O ITCHING AND REQUESTED BENADRYL. DR DANIEL NOTIFIED AND NEW ORDERS PLACED. PT REPORTED BENADRYL EFFECTIVE. PT HAS BODY WIDE SCABS AND SORES ALL OVER. PT ALSO HAS SOME CONFUSION AND FORGETFULNESS WHEN TALKING TO HER. BULLOCK CATH D/C'D PRIOR TO DIALYSIS, PER VERBAL ORDER FROM DR LUIS. PT REPORTED MINIMAL URINE OUTPUT WITH DIALYSIS. POSSIBLE D/C TOMORROW. DENIED FURTHER NEEDS. CALL LT IN REACH.
--- NOTE | 2019-10-29 18:45 | NUR ---
ASSUMED CARE RECEIVED REPORT FROM NENITA RN. ASSUMED CARE OF PT. RESTING COMFORTABLY AT THIS TIME, NO S/S ACUTE DISTRESS NOTED. DENIES ANY NEEDS AT THIS TIME. CALL LIGHT, POSSESSIONS IN REACH. WILL CONTINUE TO MONITOR.
[2019-10-30 04:29] LABS: Hematocrit 33.1 % (33.0-51.0)
[2019-10-30 04:54] LABS: Magnesium, Blood 2.2 mg/dL (1.6-2.4)
[2019-10-30 04:56] LABS: Albumin, Blood 3.2 g/dL (3.4-5.0); Anion Gap 10 mmol/L (6-16); Blood Urea Nitrogen 40 mg/dL (8-24); Bun/Creatinine Ratio 11.8 (12.0-20.0); CO2, Blood 29 mmol/L (21-32); Calcium, Blood 8.7 mg/dL (8.5-10.1); Chloride, Blood 99 mmol/L (98-108); Glomerular Filtration Rate 15 (60-); Glucose, Blood 88 mg/dL (70-99); Phosphorus, Blood 4.5 mg/dL (2.5-4.9); Sodium, Blood 138 mmol/L (136-145)
--- NOTE | 2019-10-30 06:36 | NUR ---
SHIFT SUMMARY PT DANGLING ON EDGE OF BED, PUTTING ON MAKEUP. NO S/S ACUTE DISTRESS NOTED. BPS STABLE T/O NIGHT, NO ACUTE EVENTS NOTED T/O SHIFT. MEDICATED X1 FOR C/O ITCHINESS TO BLE, NO FURTHER C/O ITCHINESS NOTED AT THIS TIME. PT COOPERATIVE C CARE, EAGER TO D/C HOME TODAY. CALL LIGHT, POSSESSIONS IN REACH, BED IN LOWEST POSITION WITH BED ALARM ACTIVATED. REMINDED PT TO CALL WITH NEEDS. WILL CONTINUE TO MONITOR UNTIL DAY RN ASSUMES CARE.
--- NOTE | 2019-10-30 15:13 | NUR ---
SHIFT SUMMARY PT AWAKE AT START OF SHIFT, SITTING UP TO EOB. PT READY TO GO HOME. DR LUIS IN TO SEE PT. NO DIALYSIS FOR TODAY. PT LATER REQUESTED ASSIST TO BSC FOR BM. PT'S STRENGTH AND MOBILITY IMPROVED FROM YESTERDAY. PT ABLE TO GET UP TO CHAIR MUCH EASIER WELL. PT LATER WANTING TO GO BACK TO BED FOR A NAP AND REPORTED THAT SHE DIDN'T THINK SHE WAS READY NOW TO GO HOME TODAY. BLOOD GLUCOSE LOW AT START OF SHIFT; OJ AND SNACKS GIVEN BEFORE BREAKFAST. PT NOT WANTING TO EAT MUCH; JUST PICKING AT MEALS. C/O NAUSEA X1 THIS AFTERNOON. ZOFRAN GIVEN PER EMAR. PT REPORTED IT EFFECTIVE. DENIED FURTHER NEEDS. CALL LT IN REACH.
--- NOTE | 2019-10-30 15:57 | NUR ---
PT ABLE TO TX SELF BACK TO BED FROM CHAIR WITH SBA ONLY.
[2019-10-31 04:25] LABS: BASOPHILS ABSOLUTE AUTO 0.04 K/mm3 (0.00-0.23); BASOPHILS PERCENT AUTO 0 % (0-2); EOSINOPHILS ABSOLUTE AUTO 0.12 K/mm3 (0.00-0.68); EOSINOPHILS PERCENT AUTO 1 % (0-6); Hematocrit 35.2 % (33.0-51.0); Hemoglobin 10.8 g/dL (11.5-16.0); IMMATURE GRAN ABSOLUTE AUTO 0.19 K/mm3 (0.00-0.10); IMMATURE GRAN PERCENT AUTO 2 % (0-1); LYMPHOCYTES ABSOLUTE AUTO 0.94 K/mm3 (0.84-5.20); LYMPHOCYTES PERCENT AUTO 8 % (21-46); MONOCYTES ABSOLUTE AUTO 1.49 K/mm3 (0.16-1.47); MONOCYTES PERCENT AUTO 12 % (4-13); Mean Corpuscular HGB 27.3 pg (26.0-34.0); Mean Corpuscular HGB Conc 30.7 g/dL (31.5-36.5); Mean Corpuscular Volume 89 fL (80-100); Mean Platelet Volume 12.3 fL (9.1-12.4); NEUTROPHILS PERCENT AUTO 77 % (41-73); NRBC ABSOLUTE 0.35 K/mm3 (0.00-0.02); NRBC Auto 2.9 /100 WBC (0.0-0.2); Platelet Count 118 K/mm3 (150-400); RDW Coefficient Variation 18.7 % (11.7-14.2); RDW Standard Deviation 53.7 fL (35.1-46.3); Red Blood Cell Count 3.95 M/mm3 (3.80-5.20); White Blood Cell Count 11.98 K/mm3 (4.00-11.30)
[2019-10-31 04:45] LABS: Albumin, Blood 3.1 g/dL (3.4-5.0); Anion Gap 16 mmol/L (6-16); Blood Urea Nitrogen 53 mg/dL (8-24); Bun/Creatinine Ratio 12.2 (12.0-20.0); CO2, Blood 22 mmol/L (21-32); Calcium, Blood 8.6 mg/dL (8.5-10.1); Chloride, Blood 95 mmol/L (98-108); Creatinine, Blood 4.33 mg/dL (0.40-1.00); Glomerular Filtration Rate 11 (60-); Glucose, Blood 226 mg/dL (70-99); Magnesium, Blood 2.4 mg/dL (1.6-2.4); Phosphorus, Blood 6.4 mg/dL (2.5-4.9); Potassium, Blood 5.1 mmol/L (3.5-5.5); Sodium, Blood 133 mmol/L (136-145)
--- NOTE | 2019-10-31 06:06 | NUR ---
Rn summary: Patient is alert and oriented. Pt was up to BSC and voided 100 cc huber cloudy urine. Pt also had a soft formed stool. Pt has been up in the recliner 2/3 rds of the shift. Pt PICC line will not flush or draw. Probable DC home today, will have day shift evaluate for need and DC if able. Pt has had on and off nausea, Medicated with oral zofran. Pt continues to have itchy skin, did receive benadryl with some relief. Plan for dialysis today then probable discharge.
--- NOTE | 2019-10-31 12:02 | NUR ---
Met pt in dialysis she reports to be doing well and may be going home today offered prayers for pt.
[2019-10-31] MEDS ORDERED: Diabetic Tussi118 ML PO (12:37)
[2019-10-31] MEDS ORDERED: Benadryl Itch28.3 G1 TOP (12:37)
[2019-10-31] MEDS ORDERED: ELIQUIS5 MG PO (12:38)
[2019-10-31] MEDS ORDERED: MIDO5 PO (12:39)
[2019-10-31] MEDS ORDERED: OMEP20ER PO (12:39)
[2019-10-31] MEDS ORDERED: ONDA4 PO (12:40)
[2019-10-31] MEDS ORDERED: DEEP SEA44 ML (12:41)
--- NOTE | 2019-10-31 12:58 | NUR ---
PT DISCHARGED. PT DISCHARGED AT 1300. PT IN STABLE CONDITION. DIAYLSIS COMPLETED THIS AM. PT EDUCATED ON DC INSTRUCTIONS. WHEELED OUT BY AIDE AND DRIVEN HOME BY . PT DENIES NEED FOR FURTHER INSTRUCTION. KYA MITCHELL DC'ED PICC LINE.
== END 2019-10-31 12:57 | disposition home or self-care (01) | DRG 682 ==
LOC: ER 13:24 → PCU 16:10 → MEDS 16:10 → ICUE 16:10 → PCU 18:10 → ICUE 10-25 11:12 → MEDS 10-27 15:42
PROVIDERS: Emergency Medicine; Family Medicine; Internal Medicine; Internal Medicine Critical Care Medicine; Internal Medicine Nephrology; Nurse Practitioner Acute Care; ADMIT Hospitalist
PROC: 5A1D70Z Performance of Urinary Filtration, Intermittent, Less than 6 Hours Per Day (ICD-10-PCS; principal; 2019-10-25)
PROC: 3E033XZ Introduction of Vasopressor into Peripheral Vein, Percutaneous Approach (ICD-10-PCS; 2019-10-26)
PROC: 5A1D70Z Performance of Urinary Filtration, Intermittent, Less than 6 Hours Per Day (ICD-10-PCS; 2019-10-27)
PROC: 5A1D70Z Performance of Urinary Filtration, Intermittent, Less than 6 Hours Per Day (ICD-10-PCS; 2019-10-29)
DX: N17.9 Acute kidney failure, unspecified (principal); R57.0 Cardiogenic shock; G93.41 Metabolic encephalopathy; I13.2 Hypertensive heart and chronic kidney disease with heart failure and with stage 5 chronic kidney disease, or end stage renal disease; I50.42 Chronic combined systolic (congestive) and diastolic (congestive) heart failure; R57.9 Shock, unspecified; I38 Endocarditis, valve unspecified; N18.6 End stage renal disease; N18.5 Chronic kidney disease, stage 5; Z51.5 Encounter for palliative care; I48.91 Unspecified atrial fibrillation; E11.22 Type 2 diabetes mellitus with diabetic chronic kidney disease; Z79.4 Long term (current) use of insulin; I25.10 Atherosclerotic heart disease of native coronary artery without angina pectoris; I25.5 Ischemic cardiomyopathy; K74.60 Unspecified cirrhosis of liver; E03.9 Hypothyroidism, unspecified; E11.40 Type 2 diabetes mellitus with diabetic neuropathy, unspecified; Z87.891 Personal history of nicotine dependence; Z66 Do not resuscitate
CPT/HCPCS: 0099U; 36415; 36430; 36569; 36600; 51702; 70450; 71045; 74018; 80048; 80053; 80069; 80074; 80202; 81001; 82010; 82140; 82150; 82803; 82947; 83605; 83690; 83735; 83880; 84100; 84145; 84439; 84443; 84481; 84484; 85014; 85018; 85025; 85027; 85610; 86317; 86850; 86900; 86901; 86923; 87040; 87086; 93005; 93010; 93282; 93308; 93321; 94640; 96360; 96361; 99285-25; A9270; A9270-GY; C1751; C1769; C1894; J0780; J1200; J1250; J1644; J1815; J2270; J2405; J2543; J2550; J3010; J3370; J3480; J7030; J7040; J7050; J7060; J7799; P9016; P9046; Q0163; U0002

== ENCOUNTER 2019-11-08 06:53 | Inpatient (IN) | payer MEDICARE, OTHER ==
[~2019-11-08] VITALS: Ht 165.1 cm; Wt 109.2 kg
[~2019-11-08 06:53] MED LIST changes: +BASAGLAR K100 UNIT/1 SC; +BENADRYL25 MG PO; +BENZ100A PO; +Benadryl Itch28.3 G1 TOP; +Bumetanide2 MG PO; +DEEP SEA44 ML; +Diabetic Tussi118 ML PO; +ELIQUIS5 MG PO; +Imdur60 MG PO; +LEVFLO500 PO; +MIDO5 PO; +OMEP20ER PO; +ONDA4 PO
[2019-11-08 07:29] LABS: Source, Urine Catheter
[2019-11-08 07:34] LABS: BASOPHILS ABSOLUTE AUTO 0.01 K/mm3 (0.00-0.23); BASOPHILS PERCENT AUTO 0 % (0-2); EOSINOPHILS ABSOLUTE AUTO 0.01 K/mm3 (0.00-0.68); EOSINOPHILS PERCENT AUTO 0 % (0-6); Hematocrit 35.5 % (33.0-51.0); Hemoglobin 11.1 g/dL (11.5-16.0); IMMATURE GRAN ABSOLUTE AUTO 0.05 K/mm3 (0.00-0.10); IMMATURE GRAN PERCENT AUTO 0 % (0-1); LYMPHOCYTES ABSOLUTE AUTO 0.49 K/mm3 (0.84-5.20); LYMPHOCYTES PERCENT AUTO 4 % (21-46); MONOCYTES ABSOLUTE AUTO 0.92 K/mm3 (0.16-1.47); MONOCYTES PERCENT AUTO 7 % (4-13); Mean Corpuscular HGB 27.8 pg (26.0-34.0); Mean Corpuscular HGB Conc 31.3 g/dL (31.5-36.5); Mean Corpuscular Volume 89 fL (80-100); Mean Platelet Volume 12.2 fL (9.1-12.4); NEUTROPHILS ABSOLUTE AUTO 11.49 K/mm3 (1.96-9.15); NEUTROPHILS PERCENT AUTO 89 % (41-73); Platelet Count 109 K/mm3 (150-400); RDW Coefficient Variation 20.7 % (11.7-14.2); RDW Standard Deviation 65.2 fL (35.1-46.3); White Blood Cell Count 12.97 K/mm3 (4.00-11.30)
[2019-11-08 07:36] LABS: Bilirubin, Urine Neg (Neg); Blood, Urine 4+ (Neg); Glucose Qualitative, Urine Neg (Neg); Ketones, Urine Neg (Neg); Leukocyte Esterase, Urine 3+ (Neg); Nitrite, Urine Neg (Neg); Protein, Urine 3+ (Neg); Urobilinogen, Urine NORM (Normal)
[2019-11-08 07:43] LABS: Appearance, Urine Turbid (Clear); Color, Urine Brown (P-Yellow)
[2019-11-08 07:44] LABS: Bacteria Many /hpf; Red Blood Cells, Urine TNTC /hpf (0-2); Squamous Epithelial Cells Not Seen /hpf (Few); White Blood Cells, Urine TNTC /hpf (0-5)
[2019-11-08 07:48] LABS: Alanine Aminotransfer (ALT/SGP 157 U/L (12-78); Albumin, Blood 2.2 g/dL (3.4-5.0); Albumin/Globulin Ratio 0.5 (0.8-1.8); Alk Phos 381 U/L (50-136); Anion Gap 9 mmol/L (6-16); Aspartate Aminotrans (AST/SGOT 154 U/L (12-37); Bilirubin, Total 6.9 mg/dL (0.1-1.0); Blood Urea Nitrogen 42 mg/dL (8-24); Bun/Creatinine Ratio 9.9 (12.0-20.0); CO2, Blood 28 mmol/L (21-32); Calcium, Blood 8.2 mg/dL (8.5-10.1); Chloride, Blood 92 mmol/L (98-108); Creatinine, Blood 4.25 mg/dL (0.40-1.00); Globulin, Blood 4.2 g/dL (2.2-4.0); Glomerular Filtration Rate 11 (60-); Glucose, Blood 139 mg/dL (70-99); Potassium, Blood 4.3 mmol/L (3.5-5.5); Sodium, Blood 129 mmol/L (136-145); Total Protein, Blood 6.4 g/dL (6.4-8.2); Troponin I <0.015 ng/mL (0.000-0.040)
[2019-11-08 07:51] LABS: International Normalized Ratio 1.67; Prothrombin Time Results 17.4 Sec (9.7-11.5)
[2019-11-08 10:35] LABS: Bilirubin, Direct 5.2 mg/dL (0.0-0.3); Bilirubin, Indirect 2.2 mg/dL (0.1-0.7); Bilirubin, Total 7.4 mg/dL (0.1-1.0)
[2019-11-08 10:35] LABS: Magnesium, Blood 2.3 mg/dL (1.6-2.4); Phosphorus, Blood 4.8 mg/dL (2.5-4.9)
[2019-11-08 13:26] LABS: Hematocrit 34.8 % (33.0-51.0); Hemoglobin 10.9 g/dL (11.5-16.0)
[2019-11-08 14:56] LABS: Albumin, Blood 1.9 g/dL (3.4-5.0); Albumin/Globulin Ratio 0.5 (0.8-1.8); Bilirubin, Total 6.3 mg/dL (0.1-1.0); Bun/Creatinine Ratio 10.5 (12.0-20.0); Calcium, Blood 7.5 mg/dL (8.5-10.1); Creatinine, Blood 4.01 mg/dL (0.40-1.00); Globulin, Blood 3.9 g/dL (2.2-4.0); Potassium, Blood 4.9 mmol/L (3.5-5.5); Total Protein, Blood 5.8 g/dL (6.4-8.2)
--- NOTE | 2019-11-08 18:56 | NUR ---
PCU DAYSHIFT SUMMARY PATIENT ALERT AND ORIENTED TO SELF. PATIENT DROWSY/SLEEPY BUT AWAKES WITH VERBAL STIMULATION. PATIENT ON ROOM AND AND 100% PACED. PATIENT COOL TO TOUCH AND HYPOTHERMIC WHEN SHE ARRIVED FROM ER. BLANKETS PLACED X3 AND HEAT TURNED UP (PATIENT RECOVERED TO NORMOTHERMIC WELL). PATIENT 100% PACED WITH HR RATE 60. SCAR ON MIDLINE CHEST NOTED - PATIENT REPORTED CABG X2. PATIENT DENIES ANY PAINS BUT HAS MUTLIPLE BRUISING FROM FALLS AT HOME. PATIENT HAD DIALYSIS TODAY. CALL LIGHT W/I REACH. SBA WITH BEDSIDE COMMODE. REPORT GIVEN TO FLOWER SCHMITZ RN. CBG'S Q1 HR.
[2019-11-08 23:20] LABS: U Amphetamine Screen Not Detected; U Barbituate Screen Not Detected; U Benzodiazapine Screen Not Detected; U Buprenorphine Screen Not Detected; U Cannabinoids Screen Not Detected; U Cocaine Screen Not Detected; U Methadone Screen Not Detected; U Methamphetamine Screen Not Detected; U Opiates Screen DETECTED; U Oxycodone Screen DETECTED; U Phencyclidine Screen Not Detected; U Propoxyphene Screen Not Detected
[2019-11-09 04:10] LABS: BASOPHILS ABSOLUTE AUTO 0.02 K/mm3 (0.00-0.23); BASOPHILS PERCENT AUTO 0 % (0-2); EOSINOPHILS ABSOLUTE AUTO 0.08 K/mm3 (0.00-0.68); EOSINOPHILS PERCENT AUTO 1 % (0-6); Hematocrit 34.4 % (33.0-51.0); Hemoglobin 10.7 g/dL (11.5-16.0); IMMATURE GRAN ABSOLUTE AUTO 0.05 K/mm3 (0.00-0.10); IMMATURE GRAN PERCENT AUTO 1 % (0-1); LYMPHOCYTES ABSOLUTE AUTO 0.96 K/mm3 (0.84-5.20); LYMPHOCYTES PERCENT AUTO 10 % (21-46); MONOCYTES ABSOLUTE AUTO 0.85 K/mm3 (0.16-1.47); MONOCYTES PERCENT AUTO 9 % (4-13); Mean Corpuscular HGB 27.1 pg (26.0-34.0); Mean Corpuscular HGB Conc 31.1 g/dL (31.5-36.5); Mean Corpuscular Volume 87 fL (80-100); Mean Platelet Volume 12.9 fL (9.1-12.4); NEUTROPHILS ABSOLUTE AUTO 7.47 K/mm3 (1.96-9.15); NEUTROPHILS PERCENT AUTO 79 % (41-73); Platelet Count 110 K/mm3 (150-400); RDW Coefficient Variation 21.2 % (11.7-14.2); RDW Standard Deviation 62.7 fL (35.1-46.3); Red Blood Cell Count 3.95 M/mm3 (3.80-5.20); White Blood Cell Count 9.43 K/mm3 (4.00-11.30)
[2019-11-09 04:23] LABS: International Normalized Ratio 1.97; Prothrombin Time Results 20.3 Sec (9.7-11.5)
[2019-11-09 04:34] LABS: Albumin, Blood 2.1 g/dL (3.4-5.0); Albumin/Globulin Ratio 0.5 (0.8-1.8); Bilirubin, Total 5.5 mg/dL (0.1-1.0); Bun/Creatinine Ratio 10.2 (12.0-20.0); Calcium, Blood 8.2 mg/dL (8.5-10.1); Creatinine, Blood 3.42 mg/dL (0.40-1.00); Globulin, Blood 4.2 g/dL (2.2-4.0); Magnesium, Blood 2.1 mg/dL (1.6-2.4); Phosphorus, Blood 3.7 mg/dL (2.5-4.9); Total Protein, Blood 6.3 g/dL (6.4-8.2)
--- NOTE | 2019-11-09 04:47 | NUR ---
UPDATE PROVIDER NOTIFIED OF GLUCOSE OF 63; JUICE TO BE GIVEN PT IS A&O;
--- NOTE | 2019-11-09 07:18 | NUR ---
SHIFT SUMMARY PT A&O; ATE JELLO AND DRANK SOME JUICE FOR CBG; VSS; 100% PACED ON TELE; O2 SATS >93 ON RA; PT HAD NO OUTPUT; ASKED IF SHE COULD USE THE RESTROOM SHE STATED SHE DID NOT HAVE A NEED; DR. LUIS TO BEDSIDE THIS AM; PT WILL HAVE DIALYSIS TODAY; CALL LIGHT IN REACH; BED IN LOWEST POSITION; REPORT GIVEN TO DAY SHIFT RN.
--- NOTE | 2019-11-09 12:24 | NUR ---
PT CURRENTLY RECEIVING DIALYSIS TX, PT CBG WAS CHECKED AND WAS 69, PT ASYMPTOMATIC, CALLED DR LEONARD AND MADE AWARE, OJ GIVEN WILL RECHECK CBG AFTER AN HOUR. PT'S BP ALSO DROPPING WHILE RECEIVING DIALYSIS TX, ORDER FOR MIDODRINE PRE AND POST DIALYSIS AND ALBUMIN. WILL MONITOR
--- NOTE | 2019-11-09 14:15 | NUR ---
PT POST DIALYSIS: PT BP SYSTOLIC WENT UP TO 116 AN HOUR AFTER 10 MG MIDODRINE ADMINISTERED. PT ALSO ATE HER LUNCH LAST CBG CHECK AT 2PM AND WAS 93. PT REQUESTED TO GET SOME REST, PT CURRENTLY IN BED CALL LIGHTS WITHIN REACH. WILL MONITOR
--- NOTE | 2019-11-09 17:29 | NUR ---
PT SUMMARY: PT ALERT AND ORIENTED X 3, ANLE TO MAKE NEEDS KNOWN. RECEIVED DIALYSIS TODAY AT 9AM ENDED AT 1PM, PT BP KEEPS DROPPING DOWN TO LOW 80'S, MIDODRINE ORDERED SWITCH TO 10MG INSTEAD OF 5MG, BP WENT UP TO 116, STILL MONITORING BP AT THIS TIME. HELD IMDUR AND METOPROLOL THIS AM PER ALSO PT'S REQUESTS SINCE BP HAS BEEN LOW. PT DENIES ANY CHEST PAIN, HRR 100% PACED AT 60'S. STILL HAS +2 PITTING EDEMA ON BLE, ORDER FOR KWAME MONROY RECEIVED. PT'S CBG HAS ALSO BEEN DROPPING TO LOW 60'S WAS ABLE TO MANAGED WITH ORANGE JUICE AND FOOD, CURRENTLY AT 101 ON LAST CBG CHECK, STILL AT Q2HRS CHECK. THE REST OF THE VITALS HAS BEEN WNL, SATS ABOVE 97% ON ROOMAIR, AFEBRILE. PT CONTINUES TO RECEIVE IV ABO FOR UTI/SEPSIS. WILL CONTINUE TO MONITOR WILL GIVE REPORT TO ONCOMING SHIFT
--- NOTE | 2019-11-09 19:30 | NUR ---
ASSUMED CARE OF PATIENT AT [facility] FROM GIANLUCA Jensen RN. PATIENT ALERT AND ORIENTED TO SELF, AND LOCATION. PATIENT REPORTS SHE CANNOT GET WARM AND IS VERY TIRED. PATIENT DENIES PAIN, NUMBNESS, TINGLING, DIZZINESS AND NASUEA. 100% PACED ON TELE; OXYGEN SATURATION ABOVE 90% ON ROOM AIR. BP IN 80'S; WILL CALL HOSPITALIST TO UPDATE. PIV S/L X2. PATIENT CURRENTLY RESTING IN BED; CALL LIGHT IN REACH; BED IN LOWEST POSISTION; BED ALARM ON; WILL CONTINUE TO MONITOR AND ASSESS UNTIL END OF SHIFT.
--- NOTE | 2019-11-09 19:41 | NUR ---
CALLED DR. AMOS TO REPORT BLOOD PRESSURE OF 82/32; PATIENT REPORTS TO SHE IS COLD AND VERY TIRED; PATIENT REPORTS BP NORMALLY 100'S BEFORE MIDODRINE GIVEN. ORDERS FOR 500 ML BOLUS OVER 3 HOURS. WILL CONTINUE TO MONITOR AND ASSESS UNTIL END OF SHIFT.
--- NOTE | 2019-11-09 22:15 | NUR ---
BLOOD PRESSURE IMPROVED; SBP IN 90'S. PATIENT NO LONGER COLD.
[2019-11-10 03:45] LABS: BASOPHILS ABSOLUTE AUTO 0.04 K/mm3 (0.00-0.23); BASOPHILS PERCENT AUTO 0 % (0-2); EOSINOPHILS ABSOLUTE AUTO 0.27 K/mm3 (0.00-0.68); EOSINOPHILS PERCENT AUTO 3 % (0-6); Hematocrit 34.5 % (33.0-51.0); Hemoglobin 10.8 g/dL (11.5-16.0); IMMATURE GRAN ABSOLUTE AUTO 0.05 K/mm3 (0.00-0.10); IMMATURE GRAN PERCENT AUTO 1 % (0-1); LYMPHOCYTES ABSOLUTE AUTO 1.03 K/mm3 (0.84-5.20); LYMPHOCYTES PERCENT AUTO 10 % (21-46); MONOCYTES ABSOLUTE AUTO 0.69 K/mm3 (0.16-1.47); MONOCYTES PERCENT AUTO 7 % (4-13); Mean Corpuscular HGB 27.5 pg (26.0-34.0); Mean Corpuscular HGB Conc 31.3 g/dL (31.5-36.5); Mean Corpuscular Volume 88 fL (80-100); Mean Platelet Volume 11.8 fL (9.1-12.4); NEUTROPHILS ABSOLUTE AUTO 7.97 K/mm3 (1.96-9.15); NEUTROPHILS PERCENT AUTO 79 % (41-73); Platelet Count 145 K/mm3 (150-400); RDW Coefficient Variation 21.2 % (11.7-14.2); RDW Standard Deviation 64.3 fL (35.1-46.3); Red Blood Cell Count 3.93 M/mm3 (3.80-5.20); White Blood Cell Count 10.05 K/mm3 (4.00-11.30)
[2019-11-10 03:59] LABS: International Normalized Ratio 1.8; Prothrombin Time Results 18.6 Sec (9.7-11.5)
[2019-11-10 04:08] LABS: Percent Saturation 27.4 % (15.0-50.0)
[2019-11-10 04:12] LABS: Albumin, Blood 2.6 g/dL (3.4-5.0); Albumin/Globulin Ratio 0.8 (0.8-1.8); Bilirubin, Direct 4.1 mg/dL (0.0-0.3); Bilirubin, Total 5.1 mg/dL (0.1-1.0); Bun/Creatinine Ratio 10.3 (12.0-20.0); Creatinine, Blood 3.02 mg/dL (0.40-1.00); Globulin, Blood 3.1 g/dL (2.2-4.0); Magnesium, Blood 2.1 mg/dL (1.6-2.4); Phosphorus, Blood 2.6 mg/dL (2.5-4.9); Potassium, Blood 3.9 mmol/L (3.5-5.5); Total Protein, Blood 5.7 g/dL (6.4-8.2)
--- NOTE | 2019-11-10 06:03 | NUR ---
DR. LUIS BEDSIDE; NO NEW ORDERS. PATIENT SLEPT ABOUT SIX HOURS LAST NIGHT. PICKED AT SCABS ON LEGS AND BLED; BENADRYL PLACED ON LEGS. LAST SBP IN 90'S. PATIENT WAS IN RECLINER FOR PART OF NIGHT; LOWEST CBG WAS 71. WILL CONTINUE TO MONITOR AND ASSESS UNTIL END OF SHIFT.
--- NOTE | 2019-11-10 13:18 | NUR ---
Spiritual care visit conducted. Patient shares about how being away from her and family has here feeling lonely and "down." We talk about what is good about her family, about her [employer] jose a system and about her emotional struggles. I listen empathically, normalize patient's experience, reinforce helpful attitudes and provide companionship and prayer. Patient responds well and displays evidence of an elevated mood and increased connectivity. I will continue to remain available to patient and family.
--- NOTE | 2019-11-10 17:00 | NUR ---
REPORT TO ALBA BOLAND. MRI SCREEN FORM SENT TO IMG.
--- NOTE | 2019-11-10 17:58 | NUR ---
PT ARRIVED TO THE UNIT VIA WHEEL CHAIR. CALL LIGHT AND PHONE WITHIN REACH. PROVIDED A WARM BLANKET, AND A CUP OF ICE. PT STATES NO OTHER NEEDS AT THIS TIME. SHE IS RESTING COMFORTABLY.
[2019-11-11 04:47] LABS: Hematocrit 38.3 % (33.0-51.0); Hemoglobin 11.7 g/dL (11.5-16.0)
[2019-11-11 05:02] LABS: International Normalized Ratio 1.56; Prothrombin Time Results 16.3 Sec (9.7-11.5)
[2019-11-11 05:07] LABS: Albumin, Blood 2.4 g/dL (3.4-5.0); Albumin/Globulin Ratio 0.6 (0.8-1.8); Bilirubin, Direct 3.2 mg/dL (0.0-0.3); Bilirubin, Total 4.2 mg/dL (0.1-1.0); Calcium, Blood 8.2 mg/dL (8.5-10.1); Creatinine, Blood 3.74 mg/dL (0.40-1.00); Globulin, Blood 4.2 g/dL (2.2-4.0); Phosphorus, Blood 2.8 mg/dL (2.5-4.9); Potassium, Blood 4.5 mmol/L (3.5-5.5); Total Protein, Blood 6.6 g/dL (6.4-8.2)
--- NOTE | 2019-11-11 05:07 | NUR ---
SHIFT SUMMARY: BP 121/39, 103/38. PT A/OX3. COMMUNICATES NEEDS. TEARFUL SEVERAL TIMES TONIGHT W/REGARD TO HER HEALTH STATUS. REPORTED NAUSEA AT START OF SHIFT, RESOLVED AFTER 2 DOSES OF ZOFRAN. PIVOT T/F W 1 ASSIST AND FWW. +3 PITTING EDEMA IN BLE. ELEVATED ON PILLOW FOR SHORT INCREMENTS. PT GENERALLY UNCOMFORTABLE. SHE STATES THIS IS SOMEWHAT BASELINE FOR HER SINCE BEGINNING DIALYSIS. BENADRYL APPLIED TO BLE ITCHING W/SOME IMPROVEMENT. MOVED BETWEEN BED AND RECLINER TONIGHT. PT BELIEVES THE SOURCE OF HER DISCOMFORT IS NOT TAKING HER NEURONTIN SHE USUALLY DOES- NOTE WRITTEN ON PT'S WHITE BOARD RE THIS CONCERN. ALFREDO CATH ON R CHEST COVERED W/CHG TEGADERM. NO ERYTHEMA AT INSERTION SITE. WILL CONT TO MONITOR.
--- NOTE | 2019-11-11 18:27 | NUR ---
SHIFT SUMMARY- PT IS A/O PLESANT AND COOPERTATIVE. SHE WENT TO [place] [facility] THIS MORNING. WAS NPO AFTER BREAKFAST FOR A HIDA SCAN, WHICH SHE WENT TO AT 1300. SHE WAS NAUSEOUS DURING THE PROCEDURE. SHE HAS A GOOD APPETITE. SHE WAS UP TO THE CHAIR SEVERAL TIMES THIS SHIFT AND TOLERATED WELL. HER BLOOD SUGAR LEVELS WERE ELEVATED THIS AFTERNOON AND A LOW SLIDING SCALE WAS ORDERED.
[2019-11-12 05:04] LABS: Hematocrit 39.6 % (33.0-51.0); Mean Corpuscular HGB 27.5 pg (26.0-34.0); Mean Corpuscular HGB Conc 30.3 g/dL (31.5-36.5); Mean Platelet Volume 11.7 fL (9.1-12.4); NRBC ABSOLUTE 0.02 K/mm3 (0.00-0.02); NRBC Auto 0.2 /100 WBC (0.0-0.2); Platelet Count 184 K/mm3 (150-400); RDW Coefficient Variation 22.5 % (11.7-14.2); RDW Standard Deviation 69.8 fL (35.1-46.3); Red Blood Cell Count 4.37 M/mm3 (3.80-5.20); White Blood Cell Count 8.13 K/mm3 (4.00-11.30)
[2019-11-12 05:05] LABS: Mean Corpuscular Volume 91 fL (80-100)
--- NOTE | 2019-11-12 05:13 | NUR ---
PT A/OX4. DID NOT SLEEP WELL TONIGHT'S SHIFT DUE TO PAIN IN BILATERAL LEGS. PT DESCRIBED PAIN THROBBING AND BURNING. PT DOES HAVE NEUROPATHY AND SWELLING IN BILATERAL LOWER EXTREMETIES. LEGS WERE ELEVATED ON PILLOWS WHICH PT STATES DID NOT HELP. HOSPITALIST DR. FLANAGAN MADE AWARE OF PT'S CONDITION. TRAMADOL ONE TIME DOSE ORDERED. PANCHITO ALSO SUGGESTED THAT I PASS ON TO AM NURSE ABOUT INCREASING PT'S DOSE OF GABAPENTIN. WILL NOTIFIY AM NURSE OF THIS. PT HAS BEEN EXPLAINED DUE TO HER CKD AND HER SOFT BP, THERE IS LIMITED PAIN MEDS WE COULD GIVE TO HER. VSS. WILL CONTINUE TO MONITOR.
[2019-11-12 05:19] LABS: International Normalized Ratio 1.54; Prothrombin Time Results 16.1 Sec (9.7-11.5)
[2019-11-12 05:30] LABS: Alanine Aminotransfer (ALT/SGP 66 U/L (12-78); Albumin, Blood 2.8 g/dL (3.4-5.0); Albumin/Globulin Ratio 0.6 (0.8-1.8); Anion Gap 11 mmol/L (6-16); Aspartate Aminotrans (AST/SGOT 41 U/L (12-37); Bilirubin, Total 4.1 mg/dL (0.1-1.0); Blood Urea Nitrogen 30 mg/dL (8-24); Bun/Creatinine Ratio 9.4 (12.0-20.0); CO2, Blood 28 mmol/L (21-32); Calcium, Blood 8.7 mg/dL (8.5-10.1); Chloride, Blood 96 mmol/L (98-108); Cholesterol 60 mg/dL (50-200); Globulin, Blood 4.4 g/dL (2.2-4.0); Glomerular Filtration Rate 16 (60-); Glucose, Blood 320 mg/dL (70-99); Magnesium, Blood 2.2 mg/dL (1.6-2.4); Phosphorus, Blood 2.5 mg/dL (2.5-4.9); Potassium, Blood 4.4 mmol/L (3.5-5.5); Sodium, Blood 135 mmol/L (136-145); Total Protein, Blood 7.2 g/dL (6.4-8.2); Triglycerides 133 mg/dL (30-160); Very Low Density Lipoprot Chol 26 mg/dL (6-32)
[2019-11-12 05:32] LABS: Alk Phos 305 U/L (50-136); CHOL/HDL RATIO 7.5; HDL Cholesterol 8 mg/dL (>39); LDL/HDL RATIO 3.2; Low Density Lipoprotein Chol 25 mg/dL (0-110)
--- NOTE | 2019-11-12 08:50 | NUR ---
HELD PT'S IV ANTIBIOTICS UNTIL AFTER DIALYSIS
--- NOTE | 2019-11-12 09:00 | NUR ---
PT. TO DIALYSIS VIA BED.
[2019-11-12] MEDS ORDERED: METO25ER PO (12:37)
[2019-11-12] MEDS ORDERED: Diflucan100 MG PO (12:53)
[2019-11-12] MEDS ORDERED: HUMALOG KW200 UNIT/1 SC (12:53)
[2019-11-12] MEDS ORDERED: SEVEC800 PO (12:56)
[2019-11-12] MEDS ORDERED: GABA100 PO (12:57)
[2019-11-12] MEDS ORDERED: VISBIOME 112.51 EACH PO (12:57)
[2019-11-12] MEDS ORDERED: NEPHRO-VITE RX1 EACH PO (12:58)
--- NOTE | 2019-11-12 13:45 | NUR ---
PT. DISCHARGED HOME WITH FAMILY. INSTRUCTIONS GIVEN AND MEDS FAXED TO [facility]. PT. HAD DIALYSIS THIS MORNING BEFORE BEING DISCHARGED HOME.
== END 2019-11-12 13:42 | disposition home or self-care (01) | DRG 871 ==
LOC: ER 06:53 → ERHOLD 10:08 → PCU 10:08 → MEDS 11-10 17:23
PROVIDERS: Emergency Medicine; Internal Medicine; Internal Medicine Nephrology; Nurse Practitioner Acute Care; Student in an Organized Health Care Education/Training Program; ADMIT Hospitalist
DX: B37.7 Candidal sepsis (principal); N18.6 End stage renal disease; K72.00 Acute and subacute hepatic failure without coma; I50.42 Chronic combined systolic (congestive) and diastolic (congestive) heart failure; B17.9 Acute viral hepatitis, unspecified; N25.81 Secondary hyperparathyroidism of renal origin; E87.1 Hypo-osmolality and hyponatremia; K76.6 Portal hypertension; I25.2 Old myocardial infarction; R65.20 Severe sepsis without septic shock; Z87.891 Personal history of nicotine dependence; Z95.5 Presence of coronary angioplasty implant and graft; Z99.2 Dependence on renal dialysis; E11.22 Type 2 diabetes mellitus with diabetic chronic kidney disease; I25.10 Atherosclerotic heart disease of native coronary artery without angina pectoris; Z95.810 Presence of automatic (implantable) cardiac defibrillator; E78.5 Hyperlipidemia, unspecified; Z79.4 Long term (current) use of insulin; D69.6 Thrombocytopenia, unspecified; E11.649 Type 2 diabetes mellitus with hypoglycemia without coma; E88.09 Other disorders of plasma-protein metabolism, not elsewhere classified; E83.39 Other disorders of phosphorus metabolism; K21.9 Gastro-esophageal reflux disease without esophagitis; I95.89 Other hypotension; Z79.82 Long term (current) use of aspirin; E11.40 Type 2 diabetes mellitus with diabetic neuropathy, unspecified; B37.49 Other urogenital candidiasis
CPT/HCPCS: 36415; 71045; 76705; 78226; 80053; 80061; 81001; 82103; 82140; 82247; 82248; 82390; 82728; 82947; 83036; 83516; 83540; 83550; 83605; 83615; 83690; 83735; 84100; 84145; 84484; 85014; 85018; 85025; 85027; 85610; 85730; 86038; 87040; 87086; 87106; 93005; 93010; 93975; 96361; 96365; 96366; 96367; 99285-25; A9270-GY; A9537; G0480; J0696; J1815; J2248; J2405; J2543; J7030; J7050; P9046; P9612

== ENCOUNTER 2019-11-18 19:36 | Inpatient (IN) | payer MEDICARE, OTHER ==
[~2019-11-18] VITALS: Ht 165.1 cm; Wt 114.2 kg
[~2019-11-18 19:36] MED LIST changes: +Diflucan100 MG PO; +GABA100 PO; +HUMALOG KW200 UNIT/1 SC; +NEPHRO-VITE RX1 EACH PO; +SEVEC800 PO; +VISBIOME 112.51 EACH PO
[2019-11-18 19:55] LABS: BASOPHILS ABSOLUTE AUTO 0.02 K/mm3 (0.00-0.23); BASOPHILS PERCENT AUTO 0 % (0-2); EOSINOPHILS ABSOLUTE AUTO 0.12 K/mm3 (0.00-0.68); EOSINOPHILS PERCENT AUTO 1 % (0-6); Hematocrit 33.6 % (33.0-51.0); Hemoglobin 10.2 g/dL (11.5-16.0); IMMATURE GRAN ABSOLUTE AUTO 0.05 K/mm3 (0.00-0.10); IMMATURE GRAN PERCENT AUTO 0 % (0-1); LYMPHOCYTES ABSOLUTE AUTO 0.91 K/mm3 (0.84-5.20); LYMPHOCYTES PERCENT AUTO 8 % (21-46); MONOCYTES PERCENT AUTO 5 % (4-13); Mean Corpuscular HGB 28.3 pg (26.0-34.0); Mean Corpuscular HGB Conc 30.4 g/dL (31.5-36.5); Mean Corpuscular Volume 93 fL (80-100); Mean Platelet Volume 11.4 fL (9.1-12.4); NEUTROPHILS ABSOLUTE AUTO 10.05 K/mm3 (1.96-9.15); NEUTROPHILS PERCENT AUTO 86 % (41-73); Platelet Count 182 K/mm3 (150-400); RDW Coefficient Variation 22.7 % (11.7-14.2); RDW Standard Deviation 76.9 fL (35.1-46.3); White Blood Cell Count 11.75 K/mm3 (4.00-11.30)
[2019-11-18 20:15] LABS: Albumin, Blood 2.1 g/dL (3.4-5.0); Albumin/Globulin Ratio 0.5 (0.8-1.8); Bilirubin, Total 2.1 mg/dL (0.1-1.0); Bun/Creatinine Ratio 9.1 (12.0-20.0); Calcium, Blood 8.9 mg/dL (8.5-10.1); Creatinine, Blood 3.85 mg/dL (0.40-1.00); Globulin, Blood 4.5 g/dL (2.2-4.0); Potassium, Blood 4.3 mmol/L (3.5-5.5); Total Protein, Blood 6.6 g/dL (6.4-8.2); Troponin I 0.023 ng/mL (0.000-0.040)
[2019-11-18 21:25] LABS: Source, Urine Clean Catch
[2019-11-18 21:29] LABS: Blood, Urine 3+ (Neg); Glucose Qualitative, Urine 2+ (Neg); Ketones, Urine 1+ (Neg); Leukocyte Esterase, Urine 3+ (Neg); Nitrite, Urine Pos (Neg); Protein, Urine 3+ (Neg); Urobilinogen, Urine 1+ (Normal)
[2019-11-18 21:35] LABS: Appearance, Urine Hazy (Clear); Bilirubin, Urine 2+ (Neg); Color, Urine Amber (P-Yellow)
[2019-11-18 21:40] LABS: White Blood Cells, Urine 50-100 /hpf (0-5)
[2019-11-18 21:41] LABS: Bacteria Mod /hpf; Squamous Epithelial Cells Mod /hpf (Few); Transitional Epithelial Cells Rare /hpf (0-Rare)
[2019-11-18] MEDS ORDERED: Midodrine HCl10 MG PO (21:43)
[2019-11-18] MEDS ORDERED: GABA100 PO (21:44)
--- NOTE | 2019-11-19 01:35 | NUR ---
ADMIT RECEIVED FROM ER VIA GURNEY. AWAKE AND ALERT. ORIENTED X 3, BUT HAS CONFUSED CONVERSATION. LABILE EMOTIONS- SWINGS FROM LAUGHING TO CRYING FREQUENTLY. COOPERATIVE WITH CARE. RIGHT SIDED WEAKNESS NOTED, UE >LE. MERCEDEZ, 3MM. ASSISTS WITH REPOSITIONING. MONITOR SHOWS PACED RHYTHM WITH UNDERLYING AFIB. MONITOR IS HAVING DIFFICULTY READING NIBP. DOPPLER PRESSURE 160/D. C/O GENERAL PAIN. FRAGILE SKIN NOTED WITH MULTIPLE SCABBED AREAS AND OTHER ABNORMALITIES- SEE PICTURES. D10 INFUSING @ 100CC/HR VIA LEFT CHEST HEMODIALYSIS CATHETER. SEE ADMIT FOR FULL ASSESSMENT.
[2019-11-19 02:20] LABS: U Amphetamine Screen Not Detected; U Barbituate Screen Not Detected; U Benzodiazapine Screen Not Detected; U Buprenorphine Screen Not Detected; U Cannabinoids Screen Not Detected; U Cocaine Screen Not Detected; U Methadone Screen Not Detected; U Methamphetamine Screen Not Detected; U Opiates Screen DETECTED; U Oxycodone Screen DETECTED; U Phencyclidine Screen Not Detected; U Propoxyphene Screen Not Detected
[2019-11-19 02:50] LABS: BASOPHILS ABSOLUTE AUTO 0.05 K/mm3 (0.00-0.23); BASOPHILS PERCENT AUTO 0 % (0-2); EOSINOPHILS ABSOLUTE AUTO 0.23 K/mm3 (0.00-0.68); EOSINOPHILS PERCENT AUTO 2 % (0-6); Hemoglobin 9.5 g/dL (11.5-16.0); IMMATURE GRAN ABSOLUTE AUTO 0.06 K/mm3 (0.00-0.10); IMMATURE GRAN PERCENT AUTO 1 % (0-1); LYMPHOCYTES ABSOLUTE AUTO 1.16 K/mm3 (0.84-5.20); LYMPHOCYTES PERCENT AUTO 10 % (21-46); MONOCYTES ABSOLUTE AUTO 0.64 K/mm3 (0.16-1.47); MONOCYTES PERCENT AUTO 6 % (4-13); Mean Corpuscular HGB 27.7 pg (26.0-34.0); Mean Corpuscular HGB Conc 29.7 g/dL (31.5-36.5); Mean Corpuscular Volume 93 fL (80-100); Mean Platelet Volume 11.5 fL (9.1-12.4); NEUTROPHILS ABSOLUTE AUTO 9.18 K/mm3 (1.96-9.15); NEUTROPHILS PERCENT AUTO 81 % (41-73); NRBC ABSOLUTE 0.02 K/mm3 (0.00-0.02); NRBC Auto 0.2 /100 WBC (0.0-0.2); Platelet Count 188 K/mm3 (150-400); RDW Coefficient Variation 22.6 % (11.7-14.2); RDW Standard Deviation 75.7 fL (35.1-46.3); Red Blood Cell Count 3.43 M/mm3 (3.80-5.20); White Blood Cell Count 11.32 K/mm3 (4.00-11.30)
[2019-11-19 03:04] LABS: Albumin/Globulin Ratio 0.5 (0.8-1.8); Bun/Creatinine Ratio 9.5 (12.0-20.0); Calcium, Blood 8.2 mg/dL (8.5-10.1); Creatinine, Blood 3.88 mg/dL (0.40-1.00); Globulin, Blood 4.3 g/dL (2.2-4.0); Magnesium, Blood 1.9 mg/dL (1.6-2.4); Potassium, Blood 4.3 mmol/L (3.5-5.5); Total Protein, Blood 6.3 g/dL (6.4-8.2)
--- NOTE | 2019-11-19 06:30 | NUR ---
SHIFT SUMMARY NO ACUTE CHANGES. CBG BETWEEN 100-130 SINCE 0130 WITH D10 INFUSING @ 100CC/HR PER ORDER. ONLY IV ACCESS IS THE HEMODIALYSIS CATHETER. NO CHANGE IN NEURO STATUS. CONTINUES WITH RIGHT SIDED WEAKNESS. SPEECH CLEAR. CONTINUES WITH OCCASIONAL NONSENSICAL CONVERSATION, BUT IS ORIENTED TO MONTH/DAY/YEAR AND PLACE. INCONTINENT OF SMALL AMOUNT OF URINE X 1- ATTENDS IN PLACE. REPOSITIONED APPROXIMATELY Q2H. PT HAS FRAGILE SKIN. WILL REPORT TO DAY SHIFT RN WHEN AVAILABLE.
--- NOTE | 2019-11-19 08:00 | NUR ---
PHONE CALL FROM AUNT RECEIVED CALL FROM PT'S AUNT REQUESTING UPDATE. AUNT LISTED ON RELEASE OF INFORMATION SHEET, UPDATE PROVIDED. PER AUNT PT HAS BEEN INCREASINGLY "IN AND OUT OF LOGIC" FOR DAYS, THE FAMILY HAD ATTRIBUTED IT TO THE OXYCODONE SHE'D BEEN TAKING. AUNT TO TRY AGAIN LATER AND SEE IF PT IS MORE APPROPRIATE FOR A PHONE CALL.
--- NOTE | 2019-11-19 08:56 | NUR ---
DR LUIS ROUNDS DR LUIS ROUNDED, UPDATED ON PT STATUS. DR LUIS AWARE THAT BP READING WITH AUTOMATIC CUFF WAS READING VERY LOW, IN 50/30S RANGES, AND VIA DOPPLER WAS READING IN 160/70S RANGES ACCORDING TO NOC RN. PER DR LUIS THIS IS TYPICAL FOR PT THE DIALYSIS CLINIC RNs OBTAIN SIMILAR READINGS WITH AUTOMATIC CUFFS. ORDERS FROM DR LUIS TO INFORM NURSING HOME ADMINISTRATOR THAT DURING TODAY'S DIALYSIS PT IS TO "RECEIVE UP TO 3 TIMES THE ALBUMIN" AND THEY ARE TO "REMOVE MUCH FLUID POSSIBLE". DR REINOSO ORDERED FOR PT TO RECEIVE THIS MORNING'S DOSE OF MIDODRINE AND IF NECESSARY DURING DIALYSIS TODAY, TO RECEIVE AN EXTRA DOSE. PER DR LUIS PT IS TO RECEIVE DAILY DIALYSIS "FOR THE NEXT SEVERAL DAYS". NO FURTHER CHANGES TO PLAN OF CARE AT THIS TIME. WILL CONT TO MONITOR PT.
--- NOTE | 2019-11-19 09:16 | NUR ---
BP READING PT'S BP DIFFICULT TO OBTAIN VIA AUTOMATIC DESPITE ALTERNATING BP CUFF SITES AND REPOSITIONING PT. SYSTOLIC BP VIA DOPPLER READING AT 0900 FOUND TO BE 130. BP TAKEN AT SAME TIME VIA AUTOMATIC READING FOUND TO 57/42 (52). DR LUIS AWARE OF THIS. PER NOC RN, HOSPITALIST AWARE WELL. WILL CONT TO MONITOR PT.
--- NOTE | 2019-11-19 10:27 | NUR ---
BLADDER SCAN BLADDER SCAN DONE PER DR LUIS ORDER, 46.
--- NOTE | 2019-11-19 12:23 | NUR ---
PICC PLACEMENT PICC PLACED BY BENNY PICC RN TO PT'S EUGENIO. AWAITING OKAY TO USE.
--- NOTE | 2019-11-19 12:32 | NUR ---
DR VILLAGRAN ROUNDS DR VILLAGRAN ROUNDED, UPDATED ON PT STATUS. PER DR VILLAGRAN, PLAN FOR PT TO BE MOVED TO MEDICAL FLOOR. DR VILLAGRAN NOTIFIED THAT PT'S BP ARE BY DOPPLER ONLY AUTOMATIC IS UNRELIABLE AND THIS WAS RELAYED BY DR LUIS WELL. PER DR VILLAGRAN, BP VIA DOPPLER IS WHAT IS TO BE USED. NO FURTHER CHANGES TO PLAN OF CARE AT THIS TIME. WILL CONT TO MONITOR PT.
--- NOTE | 2019-11-19 12:36 | NUR ---
DIALYSIS DUAL RATE DEALER AT BEDSIDE TO SET PT UP AND DIALYZE PT.
--- NOTE | 2019-11-19 12:46 | NUR ---
BP READING UPDATE CONTINUING TO BE UNABLE TO OBTAIN RELIABLE BP READING VIA AUTOMATIC CUFF. DOPPLER AT 1230 OBTAINED, 115/D. HOME ENERGY INSPECTOR HOOKED PT UP TO HIS MACHINE FOR READING AND IT WAS 151/101. DR LUIS AND DR VILLAGRAN AWARE OF UNRELIABLE READINGS. WILL CONT TO MONITOR PT.
--- NOTE | 2019-11-19 12:55 | NUR ---
CALL TO DR VILLAGRAN CALL TO DR VILLAGRAN REGARDING D10 RATE. CBG CHECK ORDERS CHANGED TO Q4H. CONFIRMED THAT DR VILLAGRAN WOULD LIKE D10 TO REDUCE FROM 100ML/HR TO 50ML/HR AND CONTINUE TO MONITOR. INFORMED DR VILLAGRAN THAT ADMITTING HAS CALLED TO HAVE OBS ORDER CHANGED TO INPT STATUS, PER DR VILLAGRAN THIS IS NOT TO BE CHANGED AND WANTS STATUS TO REMAIN OBS.
--- NOTE | 2019-11-19 14:14 | NUR ---
BP READING SHALE MINER BLASTING CHECKED PT'S BP. 126/74. WILL CONT TO MONITOR THIS CLOSELY.
--- NOTE | 2019-11-19 15:37 | NUR ---
DIALYSIS COMPLETE DIALYSIS COMPLETE AT THIS TIME. PER CLINICAL PROGRAM DIRECTOR PT'S BP READING 119/97. NO ISSUES OBTAINING BP READING VIA DIALYSIS MACHINE, HOWEVER, BP NOTED TO BE LABILE.
--- NOTE | 2019-11-19 15:53 | NUR ---
BLADDER SCAN BLADDER SCAN DONE ON PT PRIOR TO ATTEMPT TO STRAIGHT CATH PT FOR URINE SAMPLE PER DR VILLAGRAN ORDER FOR REPEAT SAMPLE TO BE SENT. BLADDER SCAN SHOWED 69.
--- NOTE | 2019-11-19 16:11 | NUR ---
URINE SAMPLE URINE SAMPLE OBTAINED VIA STRAIGHT CATH METHOD. URINE CLOUDY, YELLOW, FOUL SMELLING. URINE SAMPLE SENT TO LAB.
[2019-11-19 16:52] LABS: Source, Urine Clean Catch
[2019-11-19 17:02] LABS: Blood, Urine 5+ (Neg); Glucose Qualitative, Urine Neg (Neg); Ketones, Urine 1+ (Neg); Leukocyte Esterase, Urine 3+ (Neg); Nitrite, Urine Neg (Neg); Protein, Urine 4+ (Neg); Specific Gravity, Urine 1.015 (1.003-1.022); Urobilinogen, Urine NORM (Normal)
[2019-11-19 17:03] LABS: Appearance, Urine Turbid (Clear); Bacteria Many /hpf; Bilirubin, Urine 1+ (Neg); Color, Urine Brown (P-Yellow); Squamous Epithelial Cells Few /hpf (Few); White Blood Cells, Urine TNTC /hpf (0-5)
--- NOTE | 2019-11-19 17:35 | NUR ---
REPORT CALLED REPORT CALLED TO KYA WELCH. PT TO TRANSFER TO ROOM 336 ON MEDICAL FLOOR. KYA WELCH NOTIFIED OF LABILE BP WITH DIFFICULTY OBTAINING VIA AUTOMATIC MEANS, THAT MOST RELIABLE METHOD IS VIA DOPPLER. VS FLOWSHEET SHOWS THE LOW READINGS FROM THE AUTOMATIC BP CUFF, ALTHOUGH THERE IS A NOTICEABLE CHANGE WHEN THE PT'S BP CUFF WAS HOOKED UP TO THE DIALYSIS MACHINE. SBP VIA DOPPLER RANGED FROM 115-130S. RELAYED TO KYA WELCH THAT BOTH DR VILLAGRAN AND DR LUIS HAVE BEEN INFORMED OF THE BP CONCERNS.
--- NOTE | 2019-11-19 17:38 | NUR ---
SHIFT SUMMARY PT WITHOUT ANY ACUTE CHANGES. PT LABILE WITH EMOTIONS, OCCASIONAL TEARFULNESS. PT EASILY AROUSABLE TO VERBAL STIMULI AND ORIENTED TO SELF, , AND FAMILY. PT WITHOUT ANY VISUAL OR AUDITORY HALLUCINATIONS SINCE THIS AFTERNOON, COOPERATIVE WITH CARE. NO C/O PAIN. RHYTHM SHOWING PACED, UNDERLYING RHYTHM OF AFIB. PT DENIES ANY CHEST PAIN/PRESSURE. BP LABILE, DIFFICULT TO OBTAIN VIA AUTOMATIC METHODS, REQUIRING DOPPLER TO OBTAIN ANY RELIABLE BP READING. DR VILLAGRAN AND DR LUIS AWARE OF THIS - PER DR LUIS, THIS IS NORMAL FOR PT NURSING AT DIALYSIS CLINIC HAVE SAME PROBLEM WITH BP. SBP VIA DOPPLER RANGED FROM 115-130S. HR 60. DIALYSIS DONE TODAY. PER DR LUIS, PLAN FOR DAILY DIALYSIS. LS CLEAR T/O. SPO2 94-96% ON RA. BREATHING E/U. PT WITH OCCASIONAL LOOSE COUGH PRODUCTIVE OF THICK GREEN SECRETIONS. PT DENIES ANY SOB/DYSPNEA. ABD MOD DISTENDED, FIRM, TENDER TO PALPATION. BT X4, HYPOACTIVE. PT DENIES NAUSEA. DIET CLEAR LIQ, ALTHOUGH PT REFUSED MEAL TRAYS. PT TOLERATED SIPS OF WATER WITH FREQUENT INSTRUCTION TO SUCK ON STRAW AND SWALLOW. NO BM, HOWEVER, PT PASSING LOTS OF GAS. BLADDER SCAN DONE PER DR LUIS ORDER. FIRST SCAN READ 46, SECOND SCAN BEFORE STRAIGHT CATH READ 69. STRAIGHT CATH DONE TO OBTAIN SECOND URINE SAMPLE, URINE VERY CLOUDY AND DARK YELLOW/BROWN. SKIN OVERALL IN POOR CONDITION, SCATTERED BRUISING AND SCABBING T/O. DIFFUSE BRUISING NOTED TO ABD. EXCORIATION TO PT INNER LEFT GROIN. +4 PITTING EDEMA TO BLE, ELEVATED ON PILLOWS. PICC TO EUGENIO, FLUSHES EASILY. D10 RUNNING AT 50ML/HR PER ORDERS, CBG CHECKED Q4H. BLOOD SUGARS STABLE. PER REPORT PT RECENTLY REMOVED FROM HOSPICE CARE, HOWEVER, PT WOULD BE CANDIDATE FOR RE-EVAL, SS CONSULT IN. BED IN LOWEST CONDITION, BED RAILS RAISED. CALL LIGHT IN REACH. PLAN FOR PT TO TRANSFER TO [facility]. WILL CONT TO MONITOR PT THROUGH TO TRANSFER FROM UNIT.
--- NOTE | 2019-11-19 18:11 | NUR ---
NOTIFIED DR. VILLAGRAN REGARDING PT'S TRANSFER TO MEDICAL FLOOR DUE TO CHECKING BLOOD PRESSURE USING DOPPLER.
--- NOTE | 2019-11-19 19:04 | NUR ---
TRANSFER ASSIGNMENT CHANGE PT TO TRANSFER TO U. REPORT CALLED TO KYA NUNES.
[2019-11-20 04:30] LABS: BASOPHILS ABSOLUTE AUTO 0.02 K/mm3 (0.00-0.23); BASOPHILS PERCENT AUTO 0 % (0-2); EOSINOPHILS ABSOLUTE AUTO 0.16 K/mm3 (0.00-0.68); EOSINOPHILS PERCENT AUTO 2 % (0-6); Hematocrit 38.6 % (33.0-51.0); Hemoglobin 11.8 g/dL (11.5-16.0); IMMATURE GRAN ABSOLUTE AUTO 0.03 K/mm3 (0.00-0.10); IMMATURE GRAN PERCENT AUTO 0 % (0-1); LYMPHOCYTES ABSOLUTE AUTO 0.86 K/mm3 (0.84-5.20); LYMPHOCYTES PERCENT AUTO 12 % (21-46); MONOCYTES ABSOLUTE AUTO 0.59 K/mm3 (0.16-1.47); MONOCYTES PERCENT AUTO 8 % (4-13); Mean Corpuscular HGB 28.2 pg (26.0-34.0); Mean Corpuscular HGB Conc 30.6 g/dL (31.5-36.5); Mean Corpuscular Volume 92 fL (80-100); Mean Platelet Volume 10.6 fL (9.1-12.4); NEUTROPHILS ABSOLUTE AUTO 5.51 K/mm3 (1.96-9.15); NEUTROPHILS PERCENT AUTO 77 % (41-73); NRBC ABSOLUTE 0.02 K/mm3 (0.00-0.02); NRBC Auto 0.3 /100 WBC (0.0-0.2); Platelet Count 146 K/mm3 (150-400); RDW Coefficient Variation 22.6 % (11.7-14.2); RDW Standard Deviation 73.8 fL (35.1-46.3); Red Blood Cell Count 4.18 M/mm3 (3.80-5.20); White Blood Cell Count 7.17 K/mm3 (4.00-11.30)
[2019-11-20 04:46] LABS: Albumin, Blood 1.9 g/dL (3.4-5.0); Anion Gap 8 mmol/L (6-16); Blood Urea Nitrogen 36 mg/dL (8-24); Bun/Creatinine Ratio 9.1 (12.0-20.0); CO2, Blood 29 mmol/L (21-32); Chloride, Blood 96 mmol/L (98-108); Creatinine, Blood 3.95 mg/dL (0.40-1.00); Glomerular Filtration Rate 12 (60-); Glucose, Blood 87 mg/dL (70-99); Phosphorus, Blood 5.4 mg/dL (2.5-4.9); Potassium, Blood 4.5 mmol/L (3.5-5.5); Sodium, Blood 133 mmol/L (136-145)
--- NOTE | 2019-11-20 05:56 | NUR ---
SHIFT SUMMARY: AL IS AROUSABLE TO VOICE. SHE RESPONDS TO SIMPLE QUESTIONS, AND OCCASIONALLY IS ABLE TO ENGAGE IS VERY SHORT CONVERSATIONS. SHE CRIES OUT FREQUENTLY AND EITHER STATES THAT SHE IS DREAMING OR THAT SHE DOES NOT KNOW WHY SHE IS CRYING OUT. SKIN WITH SCATTERED EXCORATIONS AND SCABS. GROIN AND GLUTEAL CLEFT EXCORIATED. ATTENDS IN PLACE. SHE IS INCONTINENT OF BLADDER AND BOWEL, MINIMAL URINE OUTPUT D/T DIALYSIS. SHE HAD A SMALL BOWEL MOVEMENT WHICH WAS FORMED AND SOFT. BLE WITH WEEPING EDEMA, ESPECIALLY ON THE RIGHT. SHE IS ABLE TO SWALLOW HER PILLS WHOLE WITH WATER AND HAS TAKEN SEVERAL DRINKS OF WATER THIS SHIFT. SHE DOES FALL ASLEEP SHORTLY AFTER BEING AWOKEN. SHE IS PAINFUL DURING MOVEMENT, BUT IS ABLE TO HELP MOVE HERSELF IN BED. CONTINUOUS PULSE OX IN PLACE. D 10% INFUSING TO PICC IN RUE. SHE DOES NOT USE THE CALL LIGHT. BED ALARM ON FOR SAFETY. MECHANICAL OPERATOR CONSULT ACTIVE UPON TRANSFER. WILL REPORT TO DAY SHIFT RN.
--- NOTE | 2019-11-20 08:25 | NUR ---
PT RESPONDS TO VERBAL STIMULI, UNABLE TO ANSWER QUESTIONS APPROPRIATELY, MOANS A LOT, EMOTIONALLY LABILE, CRIES AT TIMES WHEN ASKED IF SHE'S IN PAIN WOULD ANSWER "IN MY BACK", PT HAS BEEN REPOSITIONED. INCONTINENT OF BOWEL AND BLADDER ATTENDS IN PLACE. VITALS TAKEN HAD A HARD TIME GETTING BLOOD PRESSURE, BP TAKEN VIA DOPPLER GOT 98/58, 100% PACED PER HRR, THE REST OF THE VITALS STABLE. DR. LUIS WAS IN TO SEE PT THIS MORNING, MADE AWARE OF PT CONDITION BEING MORE CONFUSED, STAT AMMONIA AND IONIZED CALCIUM ORDERED. PT ALSO HAS SCHEDULED DIALYSIS TODAY. WILL MONITOR
--- NOTE | 2019-11-20 10:29 | NUR ---
PT CURRENTLY BEING DIALYZED AT THIS MOMENT, AMMONIA RESULT CAME BACK ELEVATED AT 51 AND CALCIUM IONIZED LOW AT 0.98 DR LUIS ORDERED LACTULOSE 30CC/20G PO BID, AND ONE TIME OF CALCIUM GLUCONATE 1AMP/1G. WILL ADMINISTER MEDICATION WHEN PT GETS BACK FROM DIALYSIS. PT ALSO STARTED ON IV ABO PER DR. VILLAGRAN FOR POSS UTI/SEPSIS, ADDED CULTURE FROM [facility] DONE YESTERDAY. WILL MONITOR PT
--- NOTE | 2019-11-20 18:10 | NUR ---
SHIFT SUMMARY: PT WAS MORE ALERT AFTER DIALYSIS, STILL CONFUSED BUT IS ABLE TO ANSWER/ASKS QUESTIONS, PT WAS ON THE PHONE WITH A FAMILY MEMBER COUPLE TIMES FOR THE SHIFT. PT HAD AN EMOTIONAL BREAKDOWN AFTER A CONVERSATION WITH A FAMILY MEMBER TOLD HER THAT HER IS UP IN [place] DUE TO BRAIN BLEED. PT WAS OFFERED TO TALK TO RHINOLOGIST FOR COMFORT BUT IS NOT AVAILABLE TODAY, PALLIATIVE CARE NURSE CONSULTED AMBER BOLAND WAS ALSO NOT ABLE TO SEE PT TODAY BUT WILL PRIORITIZE HER FIRST THING IN THE AM. PT HAS BEEN EMOTIONALLY LABILE KEEPS SAYING "I CAN'T GET ANYBODY GO WRONG THIS TIME!" WHILE CRYING. PT WAS OFFERED TO LISTEN TO MUSIC PT FINALLY CALMED DOWN AND FALL ASLEEP. UPON WAKING UP BY THE END OF THE SHIFT PT STARTED MOANING C/O LEG PAIN, PT WAS REPOSITIONED PT STATED IT'S NOT HELPING, TYLENOL GIVEN PT WAS RELEIVED FOR A LITTLE BIT BUT THEN STARTED COMPLAINING AGAIN WHILE ON THE PHONE WITH A FAMILY MEMBER, PT WAS ADVISED TO GIVE THE MEDICATION SOME TIME TO TAKE EFFECT. PT HASN'T BEEN AETING MUCH OF HER FOOD, HAD SOME GRAPE JUICE WITH MEDS AND SOME WATER, NO ASPIRATION/COUGHING NOTED. LABS ORDERED IN AM, WILL MONITOR PT TO REPORT TO ONCOMING SHIFT.
[2019-11-21 04:22] LABS: BASOPHILS ABSOLUTE AUTO 0.04 K/mm3 (0.00-0.23); BASOPHILS PERCENT AUTO 1 % (0-2); EOSINOPHILS ABSOLUTE AUTO 0.14 K/mm3 (0.00-0.68); EOSINOPHILS PERCENT AUTO 2 % (0-6); Hematocrit 33.5 % (33.0-51.0); Hemoglobin 10.2 g/dL (11.5-16.0); IMMATURE GRAN ABSOLUTE AUTO 0.04 K/mm3 (0.00-0.10); IMMATURE GRAN PERCENT AUTO 1 % (0-1); LYMPHOCYTES ABSOLUTE AUTO 0.96 K/mm3 (0.84-5.20); LYMPHOCYTES PERCENT AUTO 11 % (21-46); MONOCYTES ABSOLUTE AUTO 0.62 K/mm3 (0.16-1.47); MONOCYTES PERCENT AUTO 7 % (4-13); Mean Corpuscular HGB 28.2 pg (26.0-34.0); Mean Corpuscular HGB Conc 30.4 g/dL (31.5-36.5); Mean Corpuscular Volume 93 fL (80-100); NEUTROPHILS ABSOLUTE AUTO 6.62 K/mm3 (1.96-9.15); NEUTROPHILS PERCENT AUTO 79 % (41-73); RDW Standard Deviation 75.6 fL (35.1-46.3); Red Blood Cell Count 3.62 M/mm3 (3.80-5.20); White Blood Cell Count 8.42 K/mm3 (4.00-11.30)
[2019-11-21 04:30] LABS: Mean Platelet Volume 11.6 fL (9.1-12.4); Platelet Count 132 K/mm3 (150-400)
[2019-11-21 04:44] LABS: Albumin, Blood 1.7 g/dL (3.4-5.0); Anion Gap 11 mmol/L (6-16); Blood Urea Nitrogen 29 mg/dL (8-24); Bun/Creatinine Ratio 8.8 (12.0-20.0); CO2, Blood 24 mmol/L (21-32); Calcium, Blood 8.4 mg/dL (8.5-10.1); Chloride, Blood 99 mmol/L (98-108); Creatinine, Blood 3.29 mg/dL (0.40-1.00); Glomerular Filtration Rate 15 (60-); Glucose, Blood 179 mg/dL (70-99); Phosphorus, Blood 5.1 mg/dL (2.5-4.9); Potassium, Blood 4.5 mmol/L (3.5-5.5); Sodium, Blood 134 mmol/L (136-145)
--- NOTE | 2019-11-21 07:40 | NUR ---
SHIFT SUMMARY: AL AROUSES EASILY TO VERBAL STIMULI. SHE IS ABLE TO HOLD LONGER CONVERSATIONS THIS SHIFT COMPARED TO LAST SHIFT. SHE IS ORIENTED TO PERSON AND FAMILY. SHE STATES THAT SHE IS VERY SAD BEING AWAY FROM HER . IT IS UNCLEAR WHETHER SHE CAME TO THE HOSPITAL FROM HOME OR FROM A SENIOR CARE. SHE IS A TWO PERSON TURN IN BED, SHE HAS NOT BEEN OUT OF BED THIS SHIFT. SHE STATES THAT SHE IS ABLE TO AMUBLATE, SELF-TOILET, AND PROVIDE SELF-CARE AT HOME. SHE IS NOT ABLE TO CARE FOR HERSELF AT THIS TIME. SHE HAD HAD MULTIPLE LIQUID BOWEL MOVEMENTS OVERNIGHT SECONDARY TO THE LACTULOSE. HER AMMONIA LEVEL HAS RETURNED TO NORMAL THIS MORNING. SHE CRIES OUT AND BECOMES TEARFUL UPON MOVEMENT. SHE DOES NOT USE THE CALL LIGHT. WILL REPORT TO DAY SHIFT RN.
--- NOTE | 2019-11-21 11:49 | NUR ---
PT CURRENTLY BEING DIALYZED AT THIS TIME IN THE DIALYSIS ROOM. PT HAS BEEN MORE ALERT THIS AM, BP SYSTOLIC IN THE 110'S MIDODRINE GIVEN PRIOR TO DIALYSIS. BP CUFF WAS CHANGED YESTERDAY AND BP IS NOT MORE CONSISTENT WITH THE AUTOMATIC BLOOD PRESSURE MACHINE. PT ON IV ABO DAILY SCHEDULED AT 9 AWAITING PT TO GET DONE WITH DIALYSIS TO ADMINISTER THE MEDICATION. WILL MONITOR
--- NOTE | 2019-11-21 14:17 | NUR ---
ARRIVES TRANSFER FROM PCU AT ABOUT 1410. ALERT TO ; SELF AND PLACE. KNOWS MONTH, BUT NOT DAY. SCABS T/O BODY IN VARIOUS STAGES OF HEALING. BLE RED, WITH 4+ PITTING EDEMA. ECCYMOTIC SCATTERED. ABD W/EDEMA AND ECCYMOTIC. GROIN AND BUTTOCK EXCORIATED. PICC PATENT AND LAB DRAW DONE. PERMACATH TO RT C.W. W/DRESSING CLEAN AND INTACT. PACEMAKER. LUNGS CLEAR TO DIM T/O. PER RENTAL CAR FERRY DRIVER PATIENT HAS HX STAPH INFECTION TO SKIN AND ITCHES/PICKS AT SKIN. UNLABORED RESPIRATIONS. ON R.A. WCTM.
--- NOTE | 2019-11-21 14:39 | NUR ---
CLEANED OF DIARRHEA AND RIGHT AFTER CLEANED WAS NEEDING TO BE CLEANED AGAIN OF DIARRHEA. MEPILEX TO SCAB LEFT BUTTOCK AND TO OPEN AREA RT BUTTOCK.
--- NOTE | 2019-11-21 15:07 | NUR ---
NOTIFIED PATIENT WITH 3 BOUTS DIARRHEA IN LESS THAN ONE HOUR. BUTTOCK AND THIGHS EXCORIATED. DOES NOT WISH TO BE CHANGED. ASK ABOUT RECTAL TUBE. OK TO PLACE. CANCEL LACTULOSE
--- NOTE | 2019-11-21 15:59 | NUR ---
30 FR BULLOCK PLACED RECTALLY W/ 30 CC BALLOON INFLATED W/STERILE WATER. DRAINING BROWN STOOL WITHIN FEW SECONDS.
--- NOTE | 2019-11-21 16:26 | NUR ---
Initial spiritual care note: I met with Simon while she was in dialysis. She appeared groggy, but tearful. She expressed despair with her on-going illnesses and fear regarding her spouse, Ilda. He is in [facility] with brain bleed. Simon admits to feeling sometimes that she could "just go." I held her hand as we spoke and offered prayer/asurance of God's love and presence. She will benefit from continued spiritual support and world travel counselor. I will remain available.
[2019-11-22 05:06] LABS: Hematocrit 31.6 % (33.0-51.0); Hemoglobin 9.4 g/dL (11.5-16.0)
[2019-11-22 05:32] LABS: Albumin, Blood 1.8 g/dL (3.4-5.0); Anion Gap 8 mmol/L (6-16); Blood Urea Nitrogen 23 mg/dL (8-24); Bun/Creatinine Ratio 7.5 (12.0-20.0); CO2, Blood 29 mmol/L (21-32); Calcium, Blood 8.6 mg/dL (8.5-10.1); Chloride, Blood 99 mmol/L (98-108); Creatinine, Blood 3.05 mg/dL (0.40-1.00); Glomerular Filtration Rate 16 (60-); Glucose, Blood 211 mg/dL (70-99); Phosphorus, Blood 4.6 mg/dL (2.5-4.9); Potassium, Blood 3.7 mmol/L (3.5-5.5); Sodium, Blood 136 mmol/L (136-145)
--- NOTE | 2019-11-22 06:15 | NUR ---
obese 63 year old Female with ESRD and cardiac pacemaker with AICD full code and on daily dialysis. PT has 3 plus deep pitting edema weeping from abd & le. Skin care done to promote wound healing. Poor historian PT unable to state date of insertion of pacer & AICD. PT has # 30 bulgarian begum which was patent , 30 ml fluid removed from bulb & repostioned replaced. Minimal amt brown pasty stool draining. Medicated x 1 for CO gen body pain with helpful effect. BP variable 80s over 30s this am . DR Correa updated he will add albumin duering dialysis. Wound care ordered, dc Q 4 hour BGS check ACHS & PRN. DC theresa hose order due to pain and weeping edema. PT says she wants to dc home versus rehab but reports Spouse has brain bleed currently & out of town. Minimal purposeful activity. Picks at scabs causing bleeding, moisturizer applied multiple times to dry scabbed skin, bandaide applied.
--- NOTE | 2019-11-22 07:29 | NUR ---
blood pressures have been variable due to heart function and third spacing. patient had surgery on left forearm"vessel removed for heart surgery". no surgery on rt forearm. bld pressure taken there and was 85/28 w/pulse 62. faint pulses all ext.
--- NOTE | 2019-11-22 13:17 | NUR ---
LEFT MESSAGE ON 'S VOICE MAIL THAT PATIENT C/O PAIN BILATERAL LEGS AND TYLENOL NOT HELPING. ASK FOR ANOTHER PAIN MED. AWAITING ORDERS.
--- NOTE | 2019-11-22 18:43 | NUR ---
ALERT. EMOTIONAL.MEPILEX X 2 TO BILATERAL BUTT CHEEKS. ONE SIDE SHEAR TO SKIN WITH OTHER SIDE SCAB. BULLOCK RECTAL TUBE TAKEN OUT WITH SOFT STOOL ON TIP. NEW PAIN MEDS HAS HELPED LEG PAIN. COULD NOT PALPATE PEDAL PULSES IN AM W/CAP REFILL RT SIDE 3-4 SEC AND <3 SEC LEFT SIDE. ABLE TO PALPATE PEDAL PULSES AFTER DIALYSIS FAINT/THREADY. TOLERATED BED BATH. UNLABORED RESPIRATIONS. WCTM
[2019-11-23 05:25] LABS: Hematocrit 31.9 % (33.0-51.0); Hemoglobin 9.6 g/dL (11.5-16.0)
[2019-11-23 05:43] LABS: Albumin, Blood 1.8 g/dL (3.4-5.0); Anion Gap 7 mmol/L (6-16); Blood Urea Nitrogen 23 mg/dL (8-24); Bun/Creatinine Ratio 8.5 (12.0-20.0); CO2, Blood 31 mmol/L (21-32); Calcium, Blood 8.6 mg/dL (8.5-10.1); Chloride, Blood 101 mmol/L (98-108); Creatinine, Blood 2.72 mg/dL (0.40-1.00); Glomerular Filtration Rate 19 (60-); Glucose, Blood 221 mg/dL (70-99); Phosphorus, Blood 3.6 mg/dL (2.5-4.9); Potassium, Blood 3.7 mmol/L (3.5-5.5); Sodium, Blood 139 mmol/L (136-145)
--- NOTE | 2019-11-23 06:20 | NUR ---
63 year old Female with end stage renal disease on daily dialysis continues to have no urine output. She recieved albumin with dialysis yesterday and she had more stable vital signs. She continues with 3 plus edema to abd & bilat le. Bilat LE slightly less red and decreased weeping of ABD & LE. PT has 9/10 pain bilat le medicated x 2 with roxycodone 5 mg. PT has minimal purposeful movement of LE. Max assist of 2 to turn in bed and declines toileting or sit on bedside. PT has 1200 ml fluid restriction & DR Correa sees labs & edema & wants dereased to 1000 ml fluid restriction. Moans or weepy at times, less emotional but labile at times. Bladder scan for over 500 ml buy TRAILER RENTAL CLERK with no void, declines bedpan or toileting. No stools. DR Correa aware PT is picking at multiple spots on her skin wound care completed. asks for additional bladder scan straight cath for PVR greater than 400 ml
--- NOTE | 2019-11-23 09:30 | NUR ---
PT TAKEN TO DIALYSIS, A/O PT APPEARED TO BE BREATHING EASILY ON RA, PT HAD SPOKEN WITH HER FAMILY ON FACETIME THIS AM, WAS VERY EMOTIONAL, AND REFUSED OCCUPATIONAL THERAPIST AT THAT TIME
--- NOTE | 2019-11-23 09:42 | NUR ---
The patients blood pressure is regularly irregular. She has a mitral valve irregularity. She has a pace maker as well +
[2019-11-23] MEDS ORDERED: ATOR80 (13:17)
[2019-11-23] MEDS ORDERED: ONDA4 PO (13:21)
[2019-11-23] MEDS ORDERED: OXYC5 (13:23)
--- NOTE | 2019-11-23 16:39 | NUR ---
PT IS A/OX3, PLEASANT AND COOPERATIVE, THE PT APPEARS TO BE BREATHING EASILY ON RA AT THIS TIME, THE PT WAS TAKEN TO DIALYSIS THIS AM AND TOLERATED IT WELL, AFTER THE PT WAS ASSISTED TO DANGLE ON THE SIDE OF THE BED PER HER REQUEST FOR LUNCH AND WAS ABLE TO SIT FOR APROX 1/2 HOUR, THE PT WAS GIVEN A SPONGE BATH, AND A CLEAN MEPILEX DRESSING WAS APPLIED THE THE PTS COCCYX WOUND, THE PT DECLINED ANY LOTION AT THIS TIME, THE PT WORKED WITH THE PHYSICAL AND OCCUPATIONAL THERAPIST THIS AFTERNOON, CALL LIGHT IN REACH, WILL CONTINUE TO MONITOR AND ASSESS FOR CHANGES
--- NOTE | 2019-11-23 16:52 | NUR ---
Spiritual care routine note: Simon was talkative and tearful today. We spoke at length about her concerns for her health and that of her . She is concerned that she won't be able to return home. She admits to feeling "tired of all this." Simon responds well to gentle spiritual mental health counselor and prayer. She has asked for continued spiritual support. I will do this as schedule permits.
[2019-11-24 05:11] LABS: Hematocrit 31.9 % (33.0-51.0); Hemoglobin 9.6 g/dL (11.5-16.0)
--- NOTE | 2019-11-24 05:23 | NUR ---
PT bladder scanned with less than 400 ml . No urine output on daily dialysis. PT has no urge to void. Wound care to multple self inflicted scabs areas PT has picked open. Discourage picking & encouraged use of moisturizers with some healing effect to mulple wounds. Benadryl cream applied to multiple areas per PT request with helpful effect. Medicated x 2 with 5 mg oxycodone with helpful effect. PT on 1000 ml fluid restriction and does not request excessive fluids. Likes ice chips & lemonade. PT on daily dialysis & had helpful effect yesterday with decreased edeama bilat le with ankles visible and PT continues to co severe bilat le pain. Continues with some weeping edema rt hip area and rt le. Skin care given several times with decreased redness scaling warmth.
[2019-11-24 05:34] LABS: Albumin, Blood 1.7 g/dL (3.4-5.0); Anion Gap 7 mmol/L (6-16); Blood Urea Nitrogen 23 mg/dL (8-24); Bun/Creatinine Ratio 8.8 (12.0-20.0); CO2, Blood 31 mmol/L (21-32); Calcium, Blood 8.2 mg/dL (8.5-10.1); Chloride, Blood 99 mmol/L (98-108); Glomerular Filtration Rate 20 (60-); Glucose, Blood 263 mg/dL (70-99); Potassium, Blood 3.7 mmol/L (3.5-5.5); Sodium, Blood 137 mmol/L (136-145)
--- NOTE | 2019-11-24 13:44 | NUR ---
Routine spiritual care note: Simon was talkative today and much more mentally clear. She spoke about her family, , career as a hospice nurse. She tells me that four years ago, she was told she'd had "3 months to live" and was placed on hospice. Because of this, Simon beleives she will be able to endure. She hopes to return home and to baseline. She accepts that she will live with small limitations, but with a couple weeks in rehab, she "will be ok." She also states that her chronic pain is nearly unbearable at times, but she has the expectation that continued dialysis will remedy this as well. Simon appears to be wrestling with accepting aging and her chronic, escalating illness. She appears to enjoy gentle director of group counseling program and prayer. Today, she was able to laugh a few times with me and was appreciative of my intereventions. T/C to spouse, Ilda. He has recently had his own health issues, but feels that he has recovered and expects Simon to return to baseling and home after rehab. I will remian available.
--- NOTE | 2019-11-24 14:56 | NUR ---
COCCYX PT HAD SMALL BM, CLEANED COCCYX WOUND USEING THE SKIN TEGRITY AND APPLIED CLEAN MEPILEX OVER THE WOUNDS
--- NOTE | 2019-11-24 16:19 | NUR ---
PT IS A/OX3, PLEASANT AND COOPERATIVE, THE PT IS BEDREST AT THIS TIME, HOWEVER THIS AM THE PT WANTED TO, AND WAS ABLE TO, DANGLE ON THE SIDE OF THE BED, THE PT DANGLED FOR APROXIMATLY 1 HOUR, THE PT THEN WAS TAKEN TO DIALYSIS, SHE WAS MEDICATED FOR PAIN DURING DIALYSIS, [facility] STARTED THE PT ON GABAPENTIN TODAY FOR THE CHRONIC PAIN, PTS COCCYX WOUND WAS CLEANED AND NEW DRESSING APPLIED, THE DEEDEE CAME AND SPENT SOME TIME WITH THE PT, PT APPEARS TO BE BREATHING EASILY ON RA, CALL LIGHT IN REACH WILL CONTINUE TO MONITOR AND ASSESS FOR CAHNGES
--- NOTE | 2019-11-24 17:54 | NUR ---
Review of pt with hospitalist. Review of pt care needs alst admission. pt legs painfull red and cramoing at end of dialysi pt fatigued and tearfull. pt back on neurontin. review of increasing dosing for complex periferal vascular nerve pain
--- NOTE | 2019-11-24 19:50 | NUR ---
ASSUMED CARE. AL IS VERY FATIQUED, SHE HAS A HARD TIME KEEPING HER EYES OPEN. IS ABLE TO STATE ORIENTATION X3, STATES SHE DOES NOT KNOW THE DATE. IS ABLE TO STATES DAY EVENTS. IS COOPERATIVE AND FOLLOWS DIRECTIONS. SKIN IS VERY FRAILE WITH MULTIPLE SORES/SCABS ALL OVER HER BODY, SCATTERED FROM HEAD TO TOE. STATES SHE HAS GOTTEN THEM FROM MULTIPLE SORES OVER TIME. DOES HAVE ISSUES WITH PICKING AT THEM. ENCOURAGED HER TO LEAVE THEM ALONE FOR HEALING. NO SIGNS OF INFECTION NOTED. DENIES ANY PAIN AT THIS TIME. LUNG SOUNDS ARE DIMINISHED, COUGH NON-PRODUCTIVE. RESP EVEN AND UNLABORED. DENIES ANY CARDIAC SYMPTOMS. HAD DIALYSIS TODAY, NO URINE PRODUCTION. LEGS ELEVATED. HIPS ELEVATED ON PILLOWS. CALL LIGHT IN REACH. WILL CONTINUE TO MONITOR.
--- NOTE | 2019-11-24 21:49 | NUR ---
AL LAYING DOWN IN BED, GAVE HER THE ZYPREXA 10MG IM. 3 RAILS ARE UP. WILL RECHECK TO SEE IF THIS HELPS TO CALM HER DOWN.
--- NOTE | 2019-11-24 21:50 | NUR ---
REPOSITIONED AL, SHE DENIED ANY NEEDS AT THIS TIME. PAIN IS STILL OK. WILL CONTINUE TO MONITOR.
--- NOTE | 2019-11-24 22:53 | NUR ---
BLADDER SCAN WAS 522, SHE STATES SHE IS UNABLE TO URINATE. GOT HER UP TO THE SIDE OF THE BED, DANGLED, BUT SHE WAS TO AFRAID TO TRANSFER TO THE COMMODE. LAID HER BACK IN BED. BM NOTED, STOFT BROWN. COMPLETE BED CHANGE DOWN. CHANGE DRESSING TO BOTTOM. RADHA CARE PERFORMED. STRAIGHT CATH COMPLETED WITH 600 OUT PUT OF VERY TEA COLOR MILKY THICK URINE WITH FOUL ODOR. REPOSITIONED UP IN BED. ELEVATED LEGS ON PILLOWS AND BED. RAISED BED AT 30 DEGREE ANGLE. MEDICATED FOR PAIN.
--- NOTE | 2019-11-25 03:20 | NUR ---
AL IS AWAKE BUT CALLS OUT OCCARUNAY DESI. WHEN GOING INTO THE ROOM SHE DOES NOT KNOW WHAT SHE NEEDS, JUST WANTS TO BE REPOSITIONED. CALL LIGHT STILL IN REACH.
[2019-11-25 04:52] LABS: Hematocrit 30.8 % (33.0-51.0); Hemoglobin 9.3 g/dL (11.5-16.0)
--- NOTE | 2019-11-25 04:53 | NUR ---
SHIFT SUMMARY: AL HAS BEEN COOPERATIVE. AOX3. PAIN CONTROLLED WITH CURRENT TX. GAVE 2 DOSES TONIGHT. SHE DANGLED AT BEDSIDE FOR A FEW MINUTES THEN LAID BACK DOWN. MEDIUM BM SOFT NOTED. DRESSING TO BOTTOM CHANGED TONIGHT. THERE ARE SEVERAL WOUNDS UNDER DRESSING 1 OPEN LARGE SURFACE ULCER, ONE WITH ESCAR DIME SIZE ULCER AND BETWEEN GLUTEAL FOLD THERE ARE SEVERAL LITTLE ONES OPEN AND DRAINING. SHE CONTINUES TO HAVE OTHER WOUNDS THROUGHOUT THE BODY. SHE HAS BAD HABIT AT PICKING AT THEM. WEEPING STILL NOTED FROM RIGHT SIDE HIP SWELLING AND BLE. EDEMA 2-3+ ON LEGS, HIPS AND ABDOMIN. BLADDER SCANS WITH RESULTS OF 522 AND 5. STRAIGHT CATH X1 WITH 600CC OUT. NO VOID ON HER OWN. POSITION CHANGE PRN. VS WNL, AFEBRILE. WILL CONTINUE TO MONITOR TILL DAY SHIFT ARRIVES.
[2019-11-25 05:11] LABS: Albumin, Blood 2.1 g/dL (3.4-5.0); Anion Gap 7 mmol/L (6-16); Blood Urea Nitrogen 18 mg/dL (8-24); CO2, Blood 32 mmol/L (21-32); Calcium, Blood 8.5 mg/dL (8.5-10.1); Chloride, Blood 100 mmol/L (98-108); Creatinine, Blood 2.24 mg/dL (0.40-1.00); Glomerular Filtration Rate 24 (60-); Glucose, Blood 230 mg/dL (70-99); Magnesium, Blood 1.9 mg/dL (1.6-2.4); Phosphorus, Blood 2.4 mg/dL (2.5-4.9); Potassium, Blood 3.6 mmol/L (3.5-5.5); Sodium, Blood 139 mmol/L (136-145)
--- NOTE | 2019-11-25 10:26 | NUR ---
dialysis states they are monitoring bp and that this is normal for pt while on dialyisis
--- NOTE | 2019-11-25 15:17 | NUR ---
therapy assisted pt to rudy, states she is enjoying it and asked to remain
--- NOTE | 2019-11-25 16:31 | NUR ---
went to dialysis, bp has remained low since going down , denies issue, held bp lowering medication, informed dr, sitting up in chair with help of therapy, declined to move back into bed when asked, changing over to nerve pain medication from narcotics, still confused and forgetful at times, calls family but, theny and her have been very understanding and cooperative
--- NOTE | 2019-11-25 19:37 | NUR ---
PT STATUS BP 77/44. ASYMPTOMATIC. NIGHT DOSE OF MIDODRINE GIVEN EARLY. CHARGE INFORMED. WILL CONTINUE TO MONITOR BP.
--- NOTE | 2019-11-26 04:10 | NUR ---
SHIFT SUMMARY ADMITTED FOR HYPOGLYCEMIA. FULL CODE. SEPTIC, PRESSURE ULCER & CELLULITIS. DIALYSIS PT, PERMACATH RT CHEST WALL. BLADDER SCAN Q6 HRS. MIDODRINE IS SCHEDULED AVAILABLE FOR CHRONIC HYPOTENSION. PLAN IS FOR DC TO SNF WHEN PAIN MANAGEMENT ISSUES ARE RESOLVED. 1000 ML/DAY FLUID RESTRICTION. SHE IS FORGETFUL, W/PERIODS OF CONFUSION. ACHS, ADA DIET. PACEMAKER. 2 PERSON ASSIST FOR TRANSFERS FROM BED TO CHAIR. CALLED OUT FREQUENTLY THROUGHOUT SHIFT. MULTIPLE SOFT BM'S THIS SHIFT. SHE WAS ANXIOUS THIS SHIFT.
[2019-11-26 05:05] LABS: Hematocrit 31.1 % (33.0-51.0); Hemoglobin 9.2 g/dL (11.5-16.0)
[2019-11-26 05:20] LABS: Albumin, Blood 2.3 g/dL (3.4-5.0); Anion Gap 8 mmol/L (6-16); Blood Urea Nitrogen 16 mg/dL (8-24); Bun/Creatinine Ratio 7.5 (12.0-20.0); CO2, Blood 33 mmol/L (21-32); Calcium, Blood 8.6 mg/dL (8.5-10.1); Chloride, Blood 97 mmol/L (98-108); Creatinine, Blood 2.12 mg/dL (0.40-1.00); Glomerular Filtration Rate 25 (60-); Glucose, Blood 199 mg/dL (70-99); Phosphorus, Blood 2.4 mg/dL (2.5-4.9); Potassium, Blood 3.7 mmol/L (3.5-5.5); Sodium, Blood 138 mmol/L (136-145)
--- NOTE | 2019-11-26 10:28 | NUR ---
down for dialysis, bp improving, will continue to monitor, pt requested breakfast when she had already had it, have been trying to keep pt informed r/changes in schedule or plan, informed cn that uv was frusterated with mm[facility], cn listened and helped her understand
--- NOTE | 2019-11-26 16:36 | NUR ---
awakened out of a sound sleep by a pt falling in the [place], started calling out for to come in, closed door to minimize disturbance while aid was provided to fallen pt, when other pt was returned to his rm pt was very excited and stated she had seen an object fly through the air and strike the man out side her door, tried to explain that he had just become dizzy and fallen, demanded that her come into her room, when told that her was not here, pt stated that the nurse and him were having an affair and we were all covering up for each other, she then called the santa's helper and asked for the head nurse to be sent to her room to because people were doing things in her room, the zinc plating machine operator called the cn who had already been in to see the pt and knew her state of mind, the pt then called the police and demanded they come and arrest her , the cn requested that the phone be disconnected, the pt continued to try to use the phone, then tried to call out via the call light, after some time she called out and requested assistance to lay back in bed, while in bed she stated that people were looking in her window and door, curtins were closed as was the door while the aid was in the room, informed dr of change in mentation, dr directed the nurse to continue to observe and report further changes
--- NOTE | 2019-11-26 17:40 | NUR ---
progressively more paranoid since being awakened by pt falling, sure their are childeren in the [place], and that her is here also, phone remains disconnected and her phone is plugged in but she apparently is unaware where she placed it, pt has agreed to allow the nurse to continue in his dilusions, held corg gave medodrine no need for insulin coverage, will continue to monitor and treat until share bsr with noc nurse and pt, informed , cn and dr of mentation change
--- NOTE | 2019-11-26 19:34 | NUR ---
PT STATUS PT REFUSING VITAL SIGNS TO BE TAKEN, REFUSING GLUCOSE MONITORING, REFUSING ASSESSMENT. SHE STATES "WHEN I GET MY PHONE BACK, I WILL COOPERATE". I HAVE INFORMED HER OF THE RISKS OF REFUSING THESE ASSESSMENTS. SHE STATED, "I DO NOT CARE". THE CONCERN IS THAT HER MENTATION IS SEVERELY ALTERED FROM YESTERDAY AND IS NOT IMPROVING OF THIS WRITING. SHE IS HAVING DEFINITE PARANOID DELUSIONS. HER , THE HOSPITALIST, AND CHARGES HAS BEEN INFORMED OF HER NEW MENTAL STATUS.
--- NOTE | 2019-11-26 22:24 | NUR ---
PT STATUS SHE DID ALLOW ME TO BLADDER SCAN HER AND GIVE TWO OF HER MEDS SO FAR. I WILL KEEP TRYING.
--- NOTE | 2019-11-27 03:51 | NUR ---
SHIFT SUMMARY ADMITTED FOR HYPOGLYCEMIA. FULL CODE. EXPECTED PLACEMENT AT [facility] ON THURSDAY FOR REHAB. PT REFUSED VITALS AND CHEMSTICKS AT BEGINNING OF SHIFT. I WAS ABLE TO GET TWO BLADDER SCANS THIS SHIFT AND ONE SET OF VITALS TOWARDS END OF SHIFT. SHE WAS HIGHLY AGITATED AND CONFUSED AT BEGINNING OF SHIFT. SHE IS NOW CALMING DOWN AND COOPERATING MORE WITH CARE AT THIS TIME. SHE HAD DIALYSIS YESTERDAY. MEPILEX ON COCCYX CHANGED. SHE IS INCONTINENT. [address] SHE HAS A PERMACATH ON RT CHEST WALL FOR DIALYSIS. ACHS CHEMSTICKS, RA, ADA DIET, PACEMAKER. 2 PERSON ASSIST TO BSC/CHAIR.
[2019-11-27 04:57] LABS: Hematocrit 33.5 % (33.0-51.0); Hemoglobin 9.9 g/dL (11.5-16.0)
[2019-11-27 05:15] LABS: Albumin, Blood 2.4 g/dL (3.4-5.0); Anion Gap 11 mmol/L (6-16); Blood Urea Nitrogen 16 mg/dL (8-24); Bun/Creatinine Ratio 7.4 (12.0-20.0); CO2, Blood 29 mmol/L (21-32); Calcium, Blood 8.7 mg/dL (8.5-10.1); Chloride, Blood 95 mmol/L (98-108); Creatinine, Blood 2.17 mg/dL (0.40-1.00); Glomerular Filtration Rate 24 (60-); Glucose, Blood 215 mg/dL (70-99); Magnesium, Blood 1.9 mg/dL (1.6-2.4); Phosphorus, Blood 3.6 mg/dL (2.5-4.9); Potassium, Blood 4.3 mmol/L (3.5-5.5); Sodium, Blood 135 mmol/L (136-145)
--- NOTE | 2019-11-27 12:56 | NUR ---
IN TO ASSESS, DISCUSSED CONFUSION, LEGS, SORES, EDEMA AND BOWEL CARE, DIALIS NURSE POINTED OUT CONFUSION INCREASE
--- NOTE | 2019-11-27 15:30 | NUR ---
DIALYSIS DR LUIS SAID TO RUN THE PT FOR 4 HOURS AND THEN TO WAIT AND PUT BACK ON FOR ANOTHER 4 HOURS. HE SAID IT WAS FOR FLUID. I ASKED ABOUT PUFFING HER AND HE SAID YES. I RAN HER FOR 1 AND HALF HOURS ON A PUF. TOTAL UF WAS 5 LITERS WITH 4 HOURS AND 20 MIN TX.
--- NOTE | 2019-11-27 16:32 | NUR ---
dialysis today, somunlent, drifting in and out of reality, not differencating between reality and dream,bp low dispited medication held hypertension medication, applied cream legs, will continue to monitor and treat until share bsr with noc nurse
--- NOTE | 2019-11-28 01:49 | NUR ---
PT has buttocks bilat maceration with bleeding noted with wound care. PT has multiple scabbed areas self inflicted areas she has picked open, scratched. Wound care bilat le, abd, arms bilat, with moisturizer applied to areas, foam to decub after karacleanse, PT has benadryl creame prn but not observed picking tonight.
[2019-11-28 06:05] LABS: BASOPHILS ABSOLUTE AUTO 0.04 K/mm3 (0.00-0.23); BASOPHILS PERCENT AUTO 0 % (0-2); EOSINOPHILS ABSOLUTE AUTO 0.12 K/mm3 (0.00-0.68); EOSINOPHILS PERCENT AUTO 1 % (0-6); Hematocrit 31.2 % (33.0-51.0); Hemoglobin 9.4 g/dL (11.5-16.0); IMMATURE GRAN ABSOLUTE AUTO 0.05 K/mm3 (0.00-0.10); IMMATURE GRAN PERCENT AUTO 1 % (0-1); LYMPHOCYTES ABSOLUTE AUTO 1.22 K/mm3 (0.84-5.20); LYMPHOCYTES PERCENT AUTO 11 % (21-46); MONOCYTES ABSOLUTE AUTO 0.82 K/mm3 (0.16-1.47); MONOCYTES PERCENT AUTO 8 % (4-13); Mean Corpuscular HGB 28.2 pg (26.0-34.0); Mean Corpuscular HGB Conc 30.1 g/dL (31.5-36.5); Mean Corpuscular Volume 94 fL (80-100); Mean Platelet Volume 11.4 fL (9.1-12.4); NEUTROPHILS ABSOLUTE AUTO 8.59 K/mm3 (1.96-9.15); NEUTROPHILS PERCENT AUTO 79 % (41-73); Platelet Count 219 K/mm3 (150-400); RDW Coefficient Variation 22.8 % (11.7-14.2); RDW Standard Deviation 75.9 fL (35.1-46.3); Red Blood Cell Count 3.33 M/mm3 (3.80-5.20); White Blood Cell Count 10.84 K/mm3 (4.00-11.30)
[2019-11-28 06:19] LABS: Percent Saturation 21.4 % (15.0-50.0)
[2019-11-28 06:29] LABS: Albumin, Blood 2.2 g/dL (3.4-5.0); Albumin/Globulin Ratio 0.7 (0.8-1.8); Bilirubin, Total 1.4 mg/dL (0.1-1.0); Bun/Creatinine Ratio 9.6 (12.0-20.0); Calcium, Blood 8.2 mg/dL (8.5-10.1); Creatinine, Blood 2.39 mg/dL (0.40-1.00); Globulin, Blood 3.2 g/dL (2.2-4.0); Potassium, Blood 4.1 mmol/L (3.5-5.5); Total Protein, Blood 5.4 g/dL (6.4-8.2)
--- NOTE | 2019-11-28 07:01 | NUR ---
PT continues withdrawn & mild confusion. She confabulates that we dropped her phone when it was out of viwe. Spouse calls to ask if PT has been tested for UTI. Has been recieving rocephin to tx. PT medicated for co le pain with 2.5 mg oxycodone with helpful effect. Photodoc wounds completed with multiple self inflicted wounds as well as dcub bilat buttock & has areas of maceration bilat grounds. Wound care with mild improvement. No attempts to climb out if bed. Bed alarm activated due to recwent falls. PT on eliquis for AFIB. PT has several stools with mix maroon & brown pasty stools. Wound care & photodoc completed.
--- NOTE | 2019-11-28 11:01 | NUR ---
OUT FOR DIALYSIS @ 0900. GI CONSULT CALLED TO DR NOLASCO ANSW SERV/DR LUIS. [facility] PLAN TO TRANSFER PT TO SNF TODAY, DR BLANCO PREPARING ORDERS. NOTIFIED DR BLANCO OF GI CONSULT.
[2019-11-28] MEDS ORDERED: ACET325 PO (13:19)
[2019-11-28] MEDS ORDERED: Fludrocortison0.1 MG PO (13:21)
[2019-11-28] MEDS ORDERED: AMMONIUM LACTATE TOP (13:21)
[2019-11-28] MEDS ORDERED: DEXT40GEL PO (13:22)
[2019-11-28] MEDS ORDERED: LEVO-T75 MCG PO (13:22)
[2019-11-28] MEDS ORDERED: Augmentin 500-1 EACH PO (13:23)
--- NOTE | 2019-11-28 14:03 | NUR ---
PT BACK TO ROOM FROM DIALYSIS. BACKBREAKER NOTIFIED, STATE PLAN CONTINUES FOR TRANSFER TODAY, PT FAMILY HAS BEEN NOTIFIED. DR NOLASCO IN FOR CONSULT, STATE TO CONTINUE ELIQUIS, WILL F/U W PT OUTPT. DR BLANCO NOTIFIED. OLEKSANDRHER IN TO EVAL PT TO DETERMINE HOW SHE WILL TRANSFER FROM SNF TO DIALYSIS. WOUND CARE TO COCCYX AREA PROVIDED.
--- NOTE | 2019-11-28 14:46 | NUR ---
REPORT CALLED TO NR KYA PEARL. SEISMIC PROSPECTING OBSERVER HELPERWOOD VENEER TAPER W/C VAN TRANSFER APPROX 1630. PT UPDATED. DR BLANCO ORDER D/C PICC LINE, JUNIOR BUSINESS ANALYST NOTIFIED.
--- NOTE | 2019-11-28 16:19 | NUR ---
Routine spiritual care note: Simon was very confused and rather paranoid today. She told me several plots against her by her family. She beleives the state police were here, and that her is abandoning her. Simon tells me that if she has to live in [facility], she would rather "give up." Simon moved between anger and tearfulness throughout conversation. She appeared to be calmed by prayer and spiritual direction. I will remain available.
--- NOTE | 2019-11-28 17:34 | NUR ---
PIC D/C'D. TRANSPORT HERE @ 1600, PT ASSISTED TO W/C, 1 ASSIST STAND/PIVOT, GAIT UNSTEADY. SHELF STOCKER TAKE PT OUT, SHE IS PLEASANT @ THIS TIME, INTERACTING, APPRECIATIVE.
== END 2019-11-28 16:39 | DRG 871 ==
LOC: ER 19:36 → MEDS 19:37 → ERHOLD 19:37 → ICUW 19:37 → PCU 11-19 19:13 → MEDS 11-21 13:55 → ENPENDDIS 11-28 11:24 → MEDS 11-28 16:39
PROVIDERS: Emergency Medicine; Internal Medicine; Internal Medicine Nephrology; Nurse Practitioner; ADMIT Internal Medicine
PROC: 5A1D70Z Performance of Urinary Filtration, Intermittent, Less than 6 Hours Per Day (ICD-10-PCS; principal; 2019-11-20)
DX: A41.9 Sepsis, unspecified organism (principal); R65.21 Severe sepsis with septic shock; N18.6 End stage renal disease; G92 Toxic encephalopathy; I13.2 Hypertensive heart and chronic kidney disease with heart failure and with stage 5 chronic kidney disease, or end stage renal disease; I50.42 Chronic combined systolic (congestive) and diastolic (congestive) heart failure; N39.0 Urinary tract infection, site not specified; I48.20 Chronic atrial fibrillation, unspecified; N25.81 Secondary hyperparathyroidism of renal origin; E87.1 Hypo-osmolality and hyponatremia; I38 Endocarditis, valve unspecified; I25.10 Atherosclerotic heart disease of native coronary artery without angina pectoris; Z99.2 Dependence on renal dialysis; Z79.4 Long term (current) use of insulin; K21.9 Gastro-esophageal reflux disease without esophagitis; E78.5 Hyperlipidemia, unspecified; Z95.0 Presence of cardiac pacemaker; Z87.891 Personal history of nicotine dependence; E11.42 Type 2 diabetes mellitus with diabetic polyneuropathy; F32.9 Major depressive disorder, single episode, unspecified; J44.9 Chronic obstructive pulmonary disease, unspecified; E11.649 Type 2 diabetes mellitus with hypoglycemia without coma; D63.1 Anemia in chronic kidney disease; L89.159 Pressure ulcer of sacral region, unspecified stage; R53.1 Weakness; E11.22 Type 2 diabetes mellitus with diabetic chronic kidney disease
CPT/HCPCS: 36415; 36556; 36569; 51701; 70450; 71045; 74176; 80053; 80069; 81001; 82140; 82330; 82607; 82728; 82746; 82947; 83036; 83540; 83550; 83605; 83735; 84145; 84443; 84484; 85014; 85018; 85025; 87040; 87086; 87106; 93005; 93010; 96365-59; 96367; 96375; 97110; 97112; 97162; 97166; 97530; 99285-25; A9270; A9270-GY; C1751; J0610; J0696; J0881; J7030; J7060; P9046

== ENCOUNTER 2020-01-01 08:25 | Emergency (ER) | payer MEDICARE, OTHER ==
[~2020-01-01] VITALS: Ht 162.6 cm; Wt 97.5 kg
[~2020-01-01 08:25] MED LIST changes: +ACET325 PO; +AMMONIUM LACTATE TOP; +ATOR80; +Augmentin 500-1 EACH PO; +DEXT40GEL PO; +Fludrocortison0.1 MG PO; +LEVO-T75 MCG PO; +Midodrine HCl10 MG PO; +OXYC5
[2020-01-01] MEDS ORDERED: MELA3 PO (08:52)
[2020-01-01] MEDS ORDERED: Fludrocortison0.1 MG PO (08:52)
[2020-01-01] MEDS ORDERED: Rena-Vite Tabl0.8 MG PO (08:53)
[2020-01-01] MEDS ORDERED: NORT25 PO (08:53)
[2020-01-01] MEDS ORDERED: OMEP20ER PO (08:53)
[2020-01-01] MEDS ORDERED: NEPHRO-VITE RX1 EAC1 PO (08:53)
[2020-01-01] MEDS ORDERED: LEVSOD75 PO (08:54)
[2020-01-01] MEDS ORDERED: METO25ER PO (08:54)
[2020-01-01] MEDS ORDERED: GABA300 PO (08:54)
[2020-01-01] MEDS ORDERED: EUTHYROX88 MCG PO (08:54)
[2020-01-01] MEDS ORDERED: ELIQUIS5 M2 PO (08:54)
[2020-01-01] MEDS ORDERED: SEVEC800 PO (08:55)
[2020-01-01] MEDS ORDERED: HEMMOREX-HC25 MG (08:55)
[2020-01-01] MEDS ORDERED: MIDO5 PO (08:55)
[2020-01-01] MEDS ORDERED: ONDA4ODT MM (08:56)
[2020-01-01] MEDS ORDERED: OXYC5 PO (08:56)
[2020-01-01] MEDS ORDERED: LOPE2C PO (08:56)
[2020-01-01] MEDS ORDERED: Benadryl Itch28.3 G1 TOP (08:56)
[2020-01-01] MEDS ORDERED: LANTUS SOL100 UNIT/1 SC (08:57)
== END 2020-01-01 13:17 | disposition home or self-care (01) ==
LOC: ER 08:25
DX: F32.9 Major depressive disorder, single episode, unspecified (principal); I25.2 Old myocardial infarction; E11.9 Type 2 diabetes mellitus without complications; Z87.891 Personal history of nicotine dependence
CPT/HCPCS: 99284